=== PATIENT | male | born 1980 | race Caucasian/White ===

== ENCOUNTER 2018-06-21 16:17 | Emergency (ER) | payer MEDICAID ==
[2018-06-21] MEDS: oxyCODONE 5 MG TABLET PO STA (18:08)
--- NOTE | 2018-06-21 18:19 | ED Physician Documentation ---
PD HPI Fall - Stated complaint Stated Complaint: RT SHOULD/PX;FELL OFF LADDER - Chief complaint Chief Complaint: Trauma Ext - History obtained from History obtained from: Patient - History of Present Illness Mechanism of injury: Other (Fall from ladder.) Fall distance: 5 to 10ft Where injury occurred: Home Timing - onset: How many days ago (2) Injury(ies) location: Neck, Right Upper Extremity Associated symptoms: Neck pain. No: LOC Worsens with: Movement, Palpation Similar symptoms before: Has not had sx before - Additional information Additional information: The patient is a 37-year-old male who fell off a ladder, about 10 feet, while hanging [employer]ia lights 2 days ago. He impacted his right shoulder and upper back. He presents now because of pain at his right elbow, forearm, neck, and shoulder. He denies loss of consciousness, headache, shortness of breath, nausea, numbness or weakness. Review of Systems Constitutional: denies: Fever Ears: denies: Tinnitus/ringing Nose: denies: Congestion Throat: denies: Sore throat Cardiac: denies: Chest pain / pressure Respiratory: denies: Dyspnea, Cough GI: denies: Abdominal Pain, Nausea, Vomiting : denies: Dysuria Skin: denies: Abrasion (s), Laceration (s) Musculoskeletal: reports: Neck pain, Extremity pain (Right shoulder, elbow, and forearm.) Neurologic: denies: Focal weakness, Numbness, Headache, LOC PD PAST MEDICAL HISTORY - Past Medical History Past Medical History: No Cardiovascular: None Respiratory: None Neuro: None Endocrine/Autoimmune: None GI: None : None HEENT: None Psych: None Musculoskeletal: None Derm: None - Past Surgical History Past Surgical History: No - Present Medications Home Medications: Ambulatory Orders Medication Instructions Recorded Confirmed Cetirizine [ZyrTEC] 06/21/18 Fluticasone [Flonase] 06/21/18 06/21/18 Gabapentin 06/21/18 HYDROcod/ACETAM 5/325 [[place] 5/325] 06/21/18 Hydrocodone/Acetaminophen 1 - 2 each PO Q6H PRN #20 tablet 06/21/18 [Hydrocodon-Acetaminophen 5-325] Ibuprofen [Motrin] 06/21/18 Methocarbamol 06/21/18 Prazosin [Minipress] 06/21/18 raNITIdine [Zantac] 06/21/18 - Allergies Allergies/Adverse Reactions: Allergies Allergy/AdvReac Type Severity Reaction Status Date / Time amoxicillin Allergy Anaphylaxis Verified 06/21/18 16:35 amitriptyline AdvReac Hallucinati Verified 06/21/18 16:35 ons diphenhydramine AdvReac Hallucinati Verified 06/21/18 16:35 [From Benadryl] ons haloperidol [From Haldol] AdvReac Hallucinati Verified 06/21/18 16:35 ons - Social History Does the pt smoke?: Yes Smoking Status: Current every day smoker Does the pt drink ETOH?: No Does the pt have substance abuse?: No - Immunizations Immunizations are current?: Yes - POLST Patient has POLST: No PD ED PE NORMAL - Vitals Vital signs reviewed: Yes (Borderline systolic hypertension initially.) - General General: Alert and oriented X 3, Well developed/nourished - HEENT HEENT: Atraumatic, EOMI - Neck Neck: Other (There is tenderness to palpation along the mid cervical spine and right paracervical musculature. No tenderness along the left paracervical musculature.) - Cardiac Cardiac: RRR, No murmur - Respiratory Respiratory: No respiratory distress, Clear bilaterally, Other (No chest wall tenderness to palpation.) - Abdomen Abdomen: Soft, Non tender - Back Back: No CVA TTP, No spinal TTP - Derm Derm: No rash - Extremities Extremities: Other (There is swelling of the right proximal forearm and elbow, with tenderness to palpation over the lateral and extensor aspect. He is able to supinate and pronate the forearm, and flex and extend the elbow, but it ex acerbates his discomfort. There is mild tenderness to palpation over the anterior aspect of the right shoulder. Distal neurovascular is intact.) - Neuro Neuro: Alert and oriented X 3, No motor deficit, No sensory deficit Results - Vitals Vitals: Oxygen O2 Source Room air - Rads (name of study) Right shoulder Radiology: Prelim report reviewed, EMP read contemporaneously, See rad report (No fracture or dislocation.) C-spine Radiology: Prelim report reviewed, EMP read contemporaneously, See rad report (No evidence of fracture or subluxation of the cervical spine. Question nondisplaced mandible fracture versus artifact on lateral view. Correlate with symptoms of mandible pain just above angle of mandible.) Right elbow Radiology: Prelim report reviewed, EMP read contemporaneously, See rad report (No fracture or subluxation.) Right forearm Radiology: Prelim report reviewed, EMP read contemporaneously, See rad report (No fracture.) Procedures - Splint (location) right elbow Splint applied by: Physician Type of splint: Fiberglass, Sugar tong Other: Patient tolerated well, No complications, Neurovascular intact, Sling provided PD MEDICAL DECISION MAKING - ED course Complexity details: reviewed results, re-evaluated patient, considered differential, d/w patient, d/w family ED course: The patient's presentation is significant for fall of about 10 feet off a ladder, with contusions to his right upper extremity and cervical strain. X- rays of his cervical spine, right shoulder, right elbow, and right forearm revealed no fractures or dislocations. However the degree of discomfort in the patient's right elbow is suspicious for an occult radial head fracture. Treatment in the emergency department included application of a sugar tong splint and an arm sling, and administration of oxycodone 1 tablet orally. He is being discharged with prescription for Vicodin, 20 tablets. I discussed with him and his the expected course of injury, symptomatic treatment and outpatient follow-up, as well as potentially worrisome signs or symptoms that should prompt reevaluation in the emergency department. Departure - Departure Disposition: 01 Home, Self Care Clinical Impression: Fall from ladder Qualifiers: Encounter type: initial encounter Qualified Code(s): W11.XXXA - Fall on and fr om ladder, initial encounter Contusion of right elbow and forearm Qualifiers: Encounter type: initial encounter Qualified Code(s): S50.11XA - Contusion of right forearm, initial encounter Cervical sprain Qualifiers: Encounter type: initial encounter Qualified Code(s): S13.9XXA - Sprain of joints and ligaments of unspecified parts of neck, initial encounter Condition: Stable Instructions: ED Contusion Elbow, ED Sprain Strain Neck, ED Splint Care Fiberglass Follow-Up: [facility] [Provider Group] Prescriptions: Hydrocodone/Acetaminophen [Hydrocodon-Acetaminophen 5-325] 1 - 2 each PO Q6H PRN #20 tablet PRN Reason: pain Comments: Keep your right arm elevated as much of the time as possible. Keep the splint clean and dry. You can use ice pack, even over the splint, to help decrease swelling. You can use ibuprofen, up to 800 mg 3 times daily for its anti-inflammatory effect. You can use Vicodin as prescribed if needed for pain. Follow-up with primary physician within 1-2 weeks. Call to schedule an appointment. Return to the emergency department if you develop significantly increasing pain or swelling, or otherwise worsening symptoms. Discharge Date/Time: 06/21/18 20:07
--- NOTE | 2018-06-21 19:37 | XRAY Report ---
Reason: 10 foot fall off ladder; neck pain. Procedure Date: 06/21/2018 Accession Number: [id number] / [id number] Procedure: XR - Cervical Spine 2 View CPT Code: FULL RESULT: EXAM: CERVICAL SPINE RADIOGRAPHY EXAM DATE: 06/21/2018 06:47 PM. CLINICAL HISTORY: 10 foot fall off ladder; neck pain. COMPARISONS: None. TECHNIQUE: 3 views. FINDINGS: Alignment: No scoliosis or subluxation. Bones: Spine adequately visualized to upper T1. Cervical vertebral bodies appear normal in height and alignment. No fracture visualized. On lateral image, there is a linear lucency seen across the mandible which may represent mandible injury versus other overlapping artifact. Disks: There is mild disk height loss at C4-C5 and C6-C7. Facets: Satisfactory alignment. Soft Tissues: No apical pneumothorax. IMPRESSION: 1. No evidence of fracture or subluxation of the cervical spine. 2. Question nondisplaced mandible fracture versus artifact on lateral view. Correlate with symptoms of mandible pain just above angle of mandible. RADIA
--- NOTE | 2018-06-21 19:39 | XRAY Report ---
Reason: right shoulder injury; fell off ladder. Procedure Date: 06/21/2018 Accession Number: [id number] / [id number] Procedure: XR - Shoulder 3 View RT CPT Code: FULL RESULT: EXAM: RIGHT SHOULDER RADIOGRAPHY EXAM DATE: 06/21/2018 06:47 PM. CLINICAL HISTORY: Right shoulder injury; fell off ladder. COMPARISON: None. TECHNIQUE: 3 views. FINDINGS: Bones: Normal. No fracture or bone lesion. Joints: The glenohumeral and acromioclavicular joints are normal. Soft tissues: The visualized hemithorax is unremarkable. No soft tissue swelling. IMPRESSION: No fracture or subluxation. RADIA
--- NOTE | 2018-06-21 19:40 | XRAY Report ---
Reason: 10 foot fall off ladder. Pain, swelling forearm. Procedure Date: 06/21/2018 Accession Number: [id number] / [id number] Procedure: XR - Forearm RT CPT Code: FULL RESULT: EXAM: RIGHT FOREARM RADIOGRAPHY EXAM DATE: 06/21/2018 06:47 PM. CLINICAL HISTORY: 10 foot fall off ladder. Pain, swelling forearm. COMPARISON: None. TECHNIQUE: 2 views. FINDINGS: Bones: Normal. No fractures or bone lesions. Joints: Normal. No effusions or subluxations in the visualized wrist or elbow joints. Soft Tissues: Normal. No soft tissue swelling. IMPRESSION: No fracture. RADIA
--- NOTE | 2018-06-21 19:42 | XRAY Report ---
Reason: 10 foot fall off ladder; Pain, swelling rt. elbow. Procedure Date: 06/21/2018 Accession Number: [id number] / [id number] Procedure: XR - Elbow 3 View RT CPT Code: FULL RESULT: EXAM: RIGHT ELBOW RADIOGRAPHY EXAM DATE: 06/21/2018 06:47 PM. CLINICAL HISTORY: 10 foot fall off ladder; Pain, swelling rt. elbow. COMPARISON: None. TECHNIQUE: 3 views. FINDINGS: Bones: Normal. No fractures or bone lesions. Joints: Normal. No effusion. No subluxation. Soft Tissues: Normal. No soft tissue swelling. IMPRESSION: No fracture or subluxation. RADIA
[2018-06-21 20:02] VITALS: BP 152/88
== END 2018-06-21 20:07 | disposition home or self-care (01) ==
LOC: ED 16:17
DX: S50.11XA Contusion of right forearm, initial encounter (principal); S16.1XXA Strain of muscle, fascia and tendon at neck level, initial encounter; W11.XXXA Fall on and from ladder, initial encounter; Y93.89 Activity, other specified; Y92.009 Unspecified place in unspecified non-institutional (private) residence as the place of occurrence of the external cause; F17.200 Nicotine dependence, unspecified, uncomplicated
CPT/HCPCS: 29105; 72040; 73030; 73080; 73090; 99283; A9270

== ENCOUNTER 2018-07-25 11:57 | Emergency (ER) | payer MEDICAID ==
--- NOTE | 2018-07-25 12:58 | ED Physician Documentation ---
PD HPI UPPER EXT INJURY - Stated complaint Stated Complaint: R ELBOW PX - Chief complaint Chief Complaint: Ext Problem - History obtained from History obtained from: Patient - History of Present Illness Location: Right, Elbow, Wrist, Hand Type of injury: Twist (had had fall from ladder with injury right shoulder and elbow. Had sling/then cast of elbow for concern of fracture (seems maybe occult fracture concern as prior xrays were negative). Has had cast off elbow for a week, and he noted some onset of pain with twisting and use of it. He put an arturo wrap on elbow last night, and today is concerned that he awoke with pain and swelling from elbow down to fingers, and the whole of it feels painful and pressured. Normal sensation at fingertips.). No: Fall Timing - onset: Yesterday Worsened by: Moving, Palpating Associated symptoms: Swelling (from elbow to tips of fingers). No: Weakness, Numbness Contributing factors: Prior ortho surgery Similar symptoms before: Has not had sx before (had still been having pain in elbow post cast removal, but not had this swelling of arm previously.) Review of Systems Constitutional: denies: Fever, Chills Skin: denies: Abrasion (s), Laceration (s) Musculoskeletal: reports: Extremity swelling PD PAST MEDICAL HISTORY - Past Medical History Past Medical History: Yes Cardiovascular: None Respiratory: None Neuro: None Endocrine/Autoimmune: None GI: None : None HEENT: None Psych: None Musculoskeletal: None Derm: None - Past Surgical History Past Surgical History: No - Present Medications Home Medications: Ambulatory Orders Medication Instructions Recorded Confirmed Cetirizine [ZyrTEC] 06/21/18 Fluticasone [Flonase] 06/21/18 06/21/18 Gabapentin 06/21/18 HYDROcod/ACETAM 5/325 [[place] 5/325] 06/21/18 Hydrocodone/Acetaminophen 1 - 2 each PO Q6H PRN #20 tablet 06/21/18 [Hydrocodon-Acetaminophen 5-325] Ibuprofen [Motrin] 06/21/18 Methocarbamol 06/21/18 Prazosin [Minipress] 06/21/18 raNITIdine [Zantac] 06/21/18 Naproxen 500 mg PO BID #20 tablet 07/25/18 Oxycodone HCl/Acetaminophen 1 - 2 each PO Q6H PRN #20 tablet 07/25/18 [Percocet 5-325 mg Tablet] - Allergies Allergies/Adverse Reactions: Allergies Allergy/AdvReac Type Severity Reaction Status Date / Time amoxicillin Allergy Anaphylaxis Verified 07/25/18 12:06 amitriptyline AdvReac Hallucinati Verified 07/25/18 12:06 ons diphenhydramine AdvReac Hallucinati Verified 07/25/18 12:06 [From Benadryl] ons haloperidol [From Haldol] AdvReac Hallucinati Verified 07/25/18 12:06 ons - Social History Does the pt smoke?: Yes Smoking Status: Current every day smoker Does the pt drink ETOH?: No Does the pt have substance abuse?: No - Immunizations Immunizations are current?: Yes - POLST Patient has POLST: No PD ED PE NORMAL - Vitals Vital signs reviewed: Yes - General General: Alert and oriented X 3, Well developed/nourished - Cardiac Cardiac: RRR, No murmur - Respiratory Respiratory: Clear bilaterally - Derm Derm: Normal color, Warm and dry - Extremities Extremities: Other (the right forearm from elbow down with edema and tenderness. Has pulses, color and cap refill in fingers/wrist. FInger movement present. Hurts for wrist and elbow movement. The edema starts and demarcates at the skin wrinkles present from the arturo wrap he put on last night. ) - Neuro Neuro: No motor deficit, No sensory deficit Results - Vitals Vitals: Vital Signs - 24 hr 07/25/18 07/25/18 12:03 13:58 Temperature 36.4 C L 36.5 C Heart Rate 50 L 53 L Respiratory 14 16 Rate Blood Pressure 156/87 H 133/84 H O2 Saturation 99 99 Oxygen O2 Source Room air - Rads (name of study) elbow,wrist, hand xrays Radiology: Prelim report reviewed (no fractures seen), See rad report PD MEDICAL DECISION MAKING - ED course Complexity details: reviewed old records (not obvious fracture on prior films. Seems concern for occult radial fx. ), reviewed results, considered differential, d/w patient Departure - Departure Disposition: Home, Self Care Clinical Impression: Edema of right forearm Elbow strain Qualifiers: Encounter type: initial encounter Laterality: right Qualified Code(s): S46.911A - Strain of unspecified muscle, fascia and tendon at shoulder and upper arm level, right arm, initial encounter Condition: Stable Record reviewed to determine appropriate education?: Yes Instructions: ED Sprain Elbow Prescriptions: Naproxen 500 mg PO BID #20 tablet Oxycodone HCl/Acetaminophen [Percocet 5-325 mg Tablet] 1 - 2 each PO Q6H PRN #20 tablet PRN Reason: pain Comments: Use a sling for the arm to support the forearm and elbow. I think the swelling in your arm was related to the Arturo wrap he had on the elbow and caused mild lymphatic tourniquet. The swelling should go down in the next day or so. No wraps around the elbow and if you do have it loose. Use a sling to support instead. Minimal use of the right arm for 2 or 3 days. You likely kind of stretched and strained the elbow given that it would have gotten stiff from the splint on there previously. Use of anti-inflammatories twice daily for the next week or so. Add pain medicine if needed. Recheck if not improved over the next few days. Forms: Activity restrictions Discharge Date/Time: 07/25/18 13:59
--- NOTE | 2018-07-25 12:59 | XRAY Report ---
Reason: pain swelling Procedure Date: 07/25/2018 Accession Number: [id number] / [id number] Procedure: XR - Elbow 3 View RT CPT Code: FULL RESULT: EXAM: RIGHT ELBOW RADIOGRAPHY EXAM DATE: 07/25/2018 12:27 PM. CLINICAL HISTORY: Pain swelling. COMPARISON: Elbow 3 view right 06/21/2018 6:47 PM. TECHNIQUE: 3 views. FINDINGS: Suboptimal position of the lateral view. This limitation precludes definite evaluation for dislocation of the radial head. Bones: Normal. No fractures or bone lesions. Joints: Normal. No effusion. No subluxation visualized with the aforementioned limitation. Soft Tissues: Normal. No soft tissue swelling. IMPRESSION: No fracture or dislocation is identified. If there is concern for subluxation of the radial head, repeat lateral radiograph is recommended. RADIA
--- NOTE | 2018-07-25 12:59 | XRAY Report ---
Reason: pain./swelling Procedure Date: 07/25/2018 Accession Number: [id number] / [id number] Procedure: XR - Hand 3 View RT CPT Code: FULL RESULT: EXAM: RIGHT HAND RADIOGRAPHY EXAM DATE: 07/25/2018 12:26 PM. CLINICAL HISTORY: Pain and swelling. COMPARISON: ELBOW 3 VIEW RT 06/21/2018 6:47 PM. TECHNIQUE: 3 views. FINDINGS: Bones: Normal. No fractures or bone lesions. Joints: Normal. No subluxations. Soft Tissues: Normal. No soft tissue swelling. IMPRESSION: Normal hand radiography. RADIA
[2018-07-25] MEDS ORDERED: oxyCODONE 5 MG TABLET PO STA (13:17)
[2018-07-25] MEDS ORDERED: NAPROXEN 250 MG TABLET PO STA (13:17)
[2018-07-25 13:59] VITALS: BP 133/84
== END 2018-07-25 13:59 | disposition home or self-care (01) ==
LOC: ED 11:57
DX: R60.0 Localized edema (principal); S46.911A Strain of unspecified muscle, fascia and tendon at shoulder and upper arm level, right arm, initial encounter; W11.XXXA Fall on and from ladder, initial encounter; X50.9XXA Other and unspecified overexertion or strenuous movements or postures, initial encounter
CPT/HCPCS: 73080; 73130; 99283; A9270

== ENCOUNTER 2019-01-15 19:40 | Emergency (ER) | payer MEDICAID ==
[2019-01-15] MEDS ORDERED: predniSONE 20 MG TABLET PO STA (20:26)
[2019-01-15] MEDS ORDERED: KETOROLAC 60 MG/2 ML VIAL IM STA (20:35)
--- NOTE | 2019-01-15 20:37 | ED Physician Documentation ---
PD HPI BACK INJURY - Stated complaint Stated Complaint: LOWER BACK PX AND LEG PX - History obtained from History obtained from: Patient - History of Present Illness Location: Right, Left, Lower Type of injury: Other (yesterday) Where injury occurred: Home Timing - onset: Yesterday Timing - duration: Days (1) Timing - details: Gradual onset Pain level max: 8 Pain level now: 8 Quality: Pain, Spasm, Similar to prior episodes Improved by: Rest Worsened by: Moving, Palpating Associated symptoms: No: Fever, Weakness, Numbness, Incontinent of urine, Unable to urinate, Hematuria, Incontinent of stool Contributing factors: No: Anticoagulated, Prior back surgery, Prosthetic joint, Other injury Similar symptoms before: Diagnosis (sciatica) - Additional information Additional information: took ibuprofen and robaxin without relief. Has had back pain in the past. No loss of bowel or bladder control. Review of Systems Constitutional: denies: Fever, Chills GI: denies: Vomiting, Diarrhea Skin: denies: Rash Musculoskeletal: denies: Neck pain, Back pain Neurologic: denies: Headache PD PAST MEDICAL HISTORY - Past Medical History Past Medical History: Yes Cardiovascular: None Respiratory: None Neuro: None Endocrine/Autoimmune: None GI: None : None HEENT: None Psych: None Musculoskeletal: Chronic back pain Derm: None - Past Surgical History Past Surgical History: No - Present Medications Home Medications: Ambulatory Orders Medication Instructions Recorded Confirmed Cetirizine [ZyrTEC] 06/21/18 Fluticasone [Flonase] 06/21/18 06/21/18 Gabapentin 06/21/18 HYDROcod/ACETAM 5/325 [[place] 5/325] 06/21/18 Hydrocodone/Acetaminophen 1 - 2 each PO Q6H PRN #20 tablet 06/21/18 [Hydrocodon-Acetaminophen 5-325] Ibuprofen [Motrin] 06/21/18 Methocarbamol 06/21/18 Prazosin [Minipress] 06/21/18 raNITIdine [Zantac] 06/21/18 Naproxen 500 mg PO BID #20 tablet 07/25/18 Oxycodone HCl/Acetaminophen 1 - 2 each PO Q6H PRN #20 tablet 07/25/18 [Percocet 5-325 mg Tablet] Meloxicam [Mobic] 15 mg PO DAILY PRN #20 tablet 01/15/19 Metaxalone [Skelaxin] 800 mg PO Q8H PRN #14 tablet 01/15/19 predniSONE [Deltasone] 10 mg PO [id number] #42 tab 01/15/19 - Allergies Allergies/Adverse Reactions: Allergies Allergy/AdvReac Type Severity Reaction Status Date / Time amoxicillin Allergy Anaphylaxis Verified 01/15/19 19:51 amitriptyline AdvReac Hallucinati Verified 01/15/19 19:51 ons diphenhydramine AdvReac Hallucinati Verified 01/15/19 19:51 [From Benadryl] ons haloperidol [From Haldol] AdvReac Hallucinati Verified 01/15/19 19:51 ons - Social History Does the pt smoke?: Yes Smoking Status: Current some day smoker Does the pt drink ETOH?: No Does the pt have substance abuse?: No Substance Use and Type: Marijuana - Immunizations Immunizations are current?: Yes - POLST Patient has POLST: No PD ED PE NORMAL - Vitals Vital signs reviewed: Yes - General General: Alert and oriented X 3, No acute distress, Well developed/nourished - HEENT HEENT: PERRL, Moist mucous membranes - Neck Neck: Supple, no meningeal sign - Cardiac Cardiac: RRR, Strong equal pulses - Respiratory Respiratory: No respiratory distress, Clear bilaterally - Abdomen Abdomen: Soft, Non tender, Non distended - Back Back: Other (Tender to palpation paraspinal bilateral low lumbar. Also has midline tenderness over L3-L4.) - Derm Derm: Warm and dry - Extremities Extremities: No calf tenderness / cord - Neuro Neuro: Alert and oriented X 3, No motor deficit, No sensory deficit, Other (Normal bilateral lower extremity patellar and ankle jerk reflexes. Normal great toe extension bilaterally. no saddle anesthesia) - Psych Psych: Normal mood, Normal affect Results - Vitals Vitals: Vital Signs - 24 hr 01/15/19 01/15/19 19:43 21:37 Temperature 36 C L 36.4 C L Heart Rate 73 49 L Respiratory 16 16 Rate Blood Pressure 162/87 H 140/78 H O2 Saturation 99 98 Oxygen O2 Source Room air - Rads (name of study) L spine xray Radiology: Prelim report reviewed, EMP read contemporaneously, See rad report (No acute abnormality) PD MEDICAL DECISION MAKING - ED course Complexity details: reviewed results, re-evaluated patient, considered differential, d/w patient ED course: 38-year-old male presents to the emergency department what appears to be sciatica. Given prednisone. His [employer] was reviewed and found that he is on hydrocodone 04/03/2025 at home. Will utilize this for pain. We will change his Robaxin to Skelaxin and see if this works better for him. Ambulating well. No evidence of cauda equina, epidural abscess, fracture. Patient counseled regarding signs and symptoms for which I believe and urgent re-evaluation would be necessary. Patient with good understanding of and agreement to plan and is comfortable going home at this time This document was made in part using voice recognition software. While efforts are made to proofread this document, sound alike and grammatical errors may occur. Departure - Departure Disposition: Home, Self Care Clinical Impression: Sciatica Qualifiers: Laterality: bilateral Qualified Code(s): M54.31 - Sciatica, right side Condition: Good Instructions: ED Sciatica Follow-Up: DESIREE ROSALES [Primary Care Provider] - Within 1 week Prescriptions: Meloxicam [Mobic] 15 mg PO DAILY PRN #20 tablet PRN Reason: pain Metaxalone [Skelaxin] 800 mg PO Q8H PRN #14 tablet PRN Reason: back pain predniSONE [Deltasone] 10 mg PO [id number] #42 tab Comments: Continue your hydrocodone at home. We will change your Robaxin and see if this helps you. Also placed on prednisone taper. Follow-up with your doctor for further care. Your x-rays are normal tonight. Do not drive or operate heavy machinery while taking the metaxalone Discharge Date/Time: 01/15/19 21:38
--- NOTE | 2019-01-15 21:03 | XRAY Report ---
Reason: fall, back pain Procedure Date: 01/15/2019 Accession Number: [id number] / [id number] Procedure: XR - Lumbar Spine 2 View CPT Code: FULL RESULT: EXAM: LUMBOSACRAL SPINE RADIOGRAPHY EXAM DATE: 01/15/2019 08:44 PM. CLINICAL HISTORY: Fall, back pain. COMPARISONS: None. TECHNIQUE: 2 views. FINDINGS: Alignment: Within normal limits. No spondylolisthesis or scoliosis. Bones: Five [id number] lumbar vertebral bodies are present. No acute fractures or suspicious bone lesions. Disks: Disk heights are maintained. Facets: Unremarkable Sacroiliac Joints: Unremarkable. Soft Tissues: The visualized bowel gas pattern is unremarkable. IMPRESSION: No radiographic evidence for acute disease. RADIA
[2019-01-15 21:39] VITALS: BP 140/78
== END 2019-01-15 21:38 | disposition home or self-care (01) ==
LOC: ED 19:40
DX: M54.31 Sciatica, right side (principal); F17.200 Nicotine dependence, unspecified, uncomplicated
CPT/HCPCS: 72100; 96372; 99283; 99284; J7512

== ENCOUNTER 2019-09-01 07:47 | Outpatient (CLI) | payer MEDICAID | END 2019-09-01 07:48 | disposition critical access hospital (66) | LOC: EMS 07:47 | PROVIDERS: ATTEND Surgery | DX: R10.9 Unspecified abdominal pain (principal) | CPT/HCPCS: A0425; A0429; A0999 ==

== ENCOUNTER 2019-09-08 18:18 | Emergency (ER) | payer MEDICAID ==
[2019-09-08] MEDS ORDERED: LIDOCAINE 1%-EPI 1:100000 20 ML MDV SUBQ STA (18:45)
--- NOTE | 2019-09-08 18:45 | ED Physician Documentation ---
History of Present Illness - Stated complaint Stated Complaint: MALE - Chief complaint Chief Complaint: General - History obtained from History obtained from: Patient (Recent laparoscopic appendectomy with JOSHUA drain still in place. He has been having trouble with constipation and today developed 2 large hemorrhoids that are quite painful while trying to have a bowel movement.) Review of Systems Constitutional: reports: Reviewed and negative Throat: reports: Reviewed and negative Cardiac: reports: Reviewed and negative PD PAST MEDICAL HISTORY - Past Medical History Cardiovascular: None Respiratory: None Neuro: None Endocrine/Autoimmune: None GI: None : None HEENT: None Psych: None Musculoskeletal: Chronic back pain Derm: None - Past Surgical History Past Surgical History: No - Present Medications Home Medications: Ambulatory Orders Medication Instructions Recorded Confirmed Gabapentin 1,200 mg ORAL TID 06/21/18 09/02/19 Ibuprofen [Motrin] 600 mg ORAL BID 06/21/18 09/02/19 Prazosin [Minipress] 2 mg ORAL DAILY 06/21/18 09/02/19 raNITIdine [Zantac] 150 mg PO DAILY PRN 06/21/18 09/02/19 lamoTRIgine [LaMICtal] 200 mg ORAL DAILY 09/01/19 09/01/19 Acyclovir 400 mg PO Q8H 09/02/19 09/02/19 Cetirizine [ZyrTEC] 10 mg PO DAILY 09/02/19 09/02/19 Fluticasone [Flonase] 1 spray MUSHTAQ DAILY PRN 09/02/19 09/02/19 HYDROcodone/ACET 10/325 [[place] 10 1 tab PO DAILY PRN 09/02/19 09/02/19 mg/325 mg] Prazosin HCl 4 mg PO QPM 09/02/19 09/02/19 methocarbamoL [Methocarbamol] 1,500 mg PO BID PRN 09/02/19 09/02/19 Levofloxacin [Levaquin] 500 mg PO DAILY #7 tablet 09/06/19 oxyCODONE [Roxicodone] 5 mg PO Q4H PRN #30 tablet 09/06/19 - Allergies Allergies/Adverse Reactions: Allergies Allergy/AdvReac Type Severity Reaction Status Date / Time amoxicillin Allergy Anaphylaxis Verified 09/08/19 18:21 amitriptyline AdvReac Hallucinati Verified 09/08/19 18:21 ons diphenhydramine AdvReac Hallucinati Verified 09/08/19 18:21 [From Benadryl] ons haloperidol [From Haldol] AdvReac Hallucinati Verified 09/08/19 18:21 ons - Social History Does the pt smoke?: Yes Smoking Status: Current some day smoker Does the pt drink ETOH?: No Does the pt have substance abuse?: No - Immunizations Immunizations are current?: Yes - POLST Patient has POLST: No POLST Status: Full Code PD ED PE NORMAL - Vitals Vital signs reviewed: Yes - General General: Alert and oriented X 3, No acute distress - Abdomen Abdomen: Soft, Non tender - Male Male : Other (2 thrombosed hemorrhoids that are tender) - Back Back: No CVA TTP, No spinal TTP Results - Vitals Vitals: Vital Signs - 24 hr 09/08/19 18:21 Temperature 37.3 C Heart Rate 84 Respiratory 18 Rate Blood Pressure 142/85 H O2 Saturation 97 Oxygen O2 Source Room air Procedures - General procedure General procedure: Large thrombosed hemorrhoids on either side: After verbal informed consent was obtained to the ear was prepped with iodine and the base of both hemorrhoids was infiltrated with 1% lidocaine with epinephrine with excellent anesthesia. Small cruciate incisions were made in both and clots were removed with resolution of his symptoms. Departure - Departure Disposition: 01 Home, Self Care Clinical Impression: Hemorrhoids Qualifiers: Hemorrhoid type: perianal venous thrombosis Qualified Code(s): K64.5 - Perianal venous thrombosis Condition: Good Record reviewed to determine appropriate education?: Yes Instructions: ED Hemorrhoids, Leana Srivastava Comments: Follow-up with the surgeon tomorrow as scheduled, have her look at the hemorrhoids as well. Let her know that we incised and drained them both. Return for new or worsening symptoms.
[2019-09-08] MEDS ORDERED: MAGNESIUM CITRATE 296 ML BOTTLE PO STA (19:04)
[2019-09-08 19:15] VITALS: BP 120/74
== END 2019-09-08 19:16 | disposition home or self-care (01) ==
LOC: ED 18:18
DX: K64.5 Perianal venous thrombosis (principal); K59.00 Constipation, unspecified; Z98.890 Other specified postprocedural states; Z90.49 Acquired absence of other specified parts of digestive tract; F17.200 Nicotine dependence, unspecified, uncomplicated
CPT/HCPCS: 46083; 99283; A9270

== ENCOUNTER 2020-03-06 19:08 | Emergency (ER) | payer MEDICAID ==
[2020-03-06] MEDS ORDERED: oxyCODONE 5 MG TABLET PO STA (19:32)
--- NOTE | 2020-03-06 19:37 | ED Physician Documentation ---
History of Present Illness - Stated complaint Stated Complaint: FALL/RIB PX - Chief complaint Chief Complaint: Trauma Ch/Bk - History obtained from History obtained from: Patient, Family - History of Present Illness Timing: How many hours ago (6) Pain level max: 10 Pain level now: 10 - Additonal information Additional information: Patient states he was standing on [place] of hay today when he fell. Initially had mild right-sided pain, this is gradually worsened throughout the day. Not relieved with his hydrocodone at home. No difficulty breathing. No cough. No fever. No congestion. Review of Systems Constitutional: denies: Fever, Chills GI: denies: Nausea, Vomiting, Diarrhea Skin: denies: Rash Musculoskeletal: denies: Neck pain, Back pain Neurologic: denies: Focal weakness, Numbness, Confused, Headache, Head injury, LOC PD PAST MEDICAL HISTORY - Past Medical History Past Medical History: Yes Cardiovascular: None Respiratory: None Neuro: None Endocrine/Autoimmune: None GI: None : None HEENT: None Psych: None Musculoskeletal: Chronic back pain Derm: None - Past Surgical History Past Surgical History: No General: Cholecystectomy, Appendectomy - Present Medications Home Medications: Ambulatory Orders Medication Instructions Recorded Confirmed Gabapentin 1,200 mg ORAL TID 06/21/18 09/02/19 Ibuprofen [Motrin] 600 mg ORAL BID 06/21/18 09/02/19 Prazosin [Minipress] 2 mg ORAL DAILY 06/21/18 09/02/19 raNITIdine [Zantac] 150 mg PO DAILY PRN 06/21/18 09/02/19 lamoTRIgine [LaMICtal] 200 mg ORAL DAILY 09/01/19 09/01/19 Acyclovir 400 mg PO Q8H 09/02/19 09/02/19 Cetirizine [ZyrTEC] 10 mg PO DAILY 09/02/19 09/02/19 Fluticasone [Flonase] 1 spray MUSHTAQ DAILY PRN 09/02/19 09/02/19 HYDROcodone/ACET 10/325 [[place] 10 1 tab PO DAILY PRN 09/02/19 09/02/19 mg/325 mg] Prazosin HCl 4 mg PO QPM 09/02/19 09/02/19 methocarbamoL [Methocarbamol] 1,500 mg PO BID PRN 09/02/19 09/02/19 Levofloxacin [Levaquin] 500 mg PO DAILY #7 tablet 09/06/19 oxyCODONE [Roxicodone] 5 mg PO Q4H PRN #30 tablet 09/06/19 predniSONE [Prednisone] 40 mg PO DAILY #10 tablet 01/27/20 oxyCODONE [Roxicodone] 5 mg PO Q6H PRN #5 tablet 03/03/20 Oxycodone HCl 5 - 10 mg PO Q6H PRN #10 tablet 03/06/20 - Allergies Allergies/Adverse Reactions: Allergies Allergy/AdvReac Type Severity Reaction Status Date / Time amoxicillin Allergy Anaphylaxis Verified 03/06/20 19:21 amitriptyline AdvReac Hallucinati Verified 03/06/20 19:21 ons diphenhydramine AdvReac Hallucinati Verified 03/06/20 19:21 [From Benadryl] ons haloperidol [From Haldol] AdvReac Hallucinati Verified 03/06/20 19:21 ons - Social History Does the pt smoke?: No Smoking Status: Never smoker Does the pt drink ETOH?: No Does the pt have substance abuse?: No - Immunizations Immunizations are current?: Yes - POLST Patient has POLST: No POLST Status: Full Code PD ED PE NORMAL - Vitals Vital signs reviewed: Yes - General General: Alert and oriented X 3, No acute distress, Well developed/nourished - HEENT HEENT: Atraumatic, PERRL, Ears normal, Moist mucous membranes - Neck Neck: Supple, no meningeal sign, No bony TTP - Cardiac Cardiac: RRR, No murmur - Respiratory Respiratory: No respiratory distress, Clear bilaterally, Other (Tender to Palpation over the right posterior ribs, approximately 7 through 10. No crepitus. No ecchymosis.) - Back Back: No spinal TTP - Derm Derm: Warm and dry - Extremities Extremities: No tenderness to palpate - Neuro Neuro: Alert and oriented X 3 - Psych Psych: Normal mood, Normal affect Results - Vitals Vitals: Vital Signs - 24 hr 03/06/20 03/06/20 19:19 20:38 Temperature 36.8 C Heart Rate 70 58 L Respiratory 18 18 Rate Blood Pressure 126/79 126/73 O2 Saturation 98 100 Oxygen O2 Source Room air - Rads (name of study) R rib xray Radiology: Prelim report reviewed, EMP read contemporaneously, See rad report (no visible xray) PD MEDICAL DECISION MAKING - ED course Complexity details: reviewed results, re-evaluated patient, considered differential, d/w patient ED course: patient is a 39-year-old male who presents to the emergency department after a fall today. Landed on the right ribs. No acute findings on x-ray. No pneumothorax or hemothorax. Patient counseled regarding signs and symptoms for which I believe and urgent re-evaluation would be necessary. Patient with good understanding of and agreement to plan and is comfortable going home at this time This document was made in part using voice recognition software. While efforts are made to proofread this document, sound alike and grammatical errors may occur. Departure - Departure Disposition: 01 Home, Self Care Clinical Impression: Contusion of rib on right side Qualifiers: Encounter type: initial encounter Qualified Code(s): S20.211A - Contusion of right front wall of thorax, initial encounter Condition: Good Instructions: ED Contusion Rib Follow-Up: your,doctor in 1 week [Other] Prescriptions: Oxycodone HCl 5 - 10 mg PO Q6H PRN #10 tablet PRN Reason: pain Comments: We do not see any fractures on your x-ray currently. Follow-up with your doctor for further care. Return if you worsen. Discharge Date/Time: 03/06/20 20:44
--- NOTE | 2020-03-06 20:17 | XRAY Report ---
PROCEDURE: Ribs w/PA Chest RT INDICATIONS: fall, R rib pain TECHNIQUE: 4 views of the right ribs were acquired, along with a single view chest. COMPARISON: None FINDINGS: Surgical changes and devices: None. Bones and chest wall: No fractures or dislocations. No suspicious bony lesions. Overlying soft tis sues appear unremarkable. Lungs and pleura: No pleural effusions or pneumothorax. Lungs appear clear. Mediastinum: Mediastinal contours appear normal. Heart size is normal. IMPRESSION: No trauma found. Please note that delayed plain films may detect a nondisplaced rib fracture that is not initially visible prior to callus formation. Also, nuclear medicine bone scan studies can more ac curately detected rib fractures Reviewed by: Misbah Marquis MD on 03/06/2020 8:16 PM PDT Approved by: Misbah Marquis MD on 03/06/2020 8:16 PM PDT Station ID: [id number]
[2020-03-06 20:39] VITALS: BP 126/73
== END 2020-03-06 20:44 | disposition home or self-care (01) ==
LOC: ED 19:08
DX: S20.211A Contusion of right front wall of thorax, initial encounter (principal); W17.89XA Other fall from one level to another, initial encounter; Y92.89 Other specified places as the place of occurrence of the external cause
CPT/HCPCS: 71101; 99283; 99284; A9270

== ENCOUNTER 2020-05-03 12:41 | Emergency (ER) | payer MEDICAID ==
[2020-05-03 13:11] LABS: BASOPHILS % (AUTO) 0.5 %; EOSINOPHILS # (AUTO) 0.1 10^3/uL (0.0-0.7); EOSINOPHILS % (AUTO) 0.7 %; HGB - HEMOGLOBIN 14.8 g/dL (14.0-18.0); LYMPHOCYTES # (AUTO) 2.3 10^3/uL (1.5-3.5); LYMPHOCYTES % (AUTO) 25.6 %; MEAN CORPUSCULAR HEMOGLOBIN 32.9 pg (27.0-31.0); MEAN CORPUSCULAR HGB CONC 34.5 g/dL (32.0-36.0); MEAN CORPUSCULAR VOLUME 95.3 fL (80.0-94.0); MEAN PLATELET VOLUME 8.5 fL (7.4-11.4); MONOCYTES # (AUTO) 0.3 10^3/uL (0.0-1.0); MONOCYTES % (AUTO) 3.7 %; NEUTROPHILS # (AUTO) 6.1 10^3/uL (1.5-6.6); NEUTROPHILS % (AUTO) 69.2 %; PLT - PLATELET COUNT 432 10^3/uL (130-450); WHITE BLOOD COUNT 8.8 x10^3/uL (4.8-10.8)
[2020-05-03 13:23] LABS: ALBUMIN 4.8 g/dL (3.2-5.5); ALBUMIN/GLOBULIN RATIO 1.8 (1.0-2.2); BILIRUBIN,TOTAL 0.6 mg/dL (0.2-1.0); CALCIUM 9.6 mg/dL (8.5-10.3); CREATININE 0.6 mg/dL (0.6-1.2); TOTAL PROTEIN 7.4 g/dL (6.7-8.2)
[2020-05-03] MEDS ORDERED: HYDROmorphone 1 MG/ML CARPUJECT IVP STA (13:30)
[2020-05-03] MEDS ORDERED: ONDANSETRON 4 MG/2 ML VIAL IVP STA (13:30)
[2020-05-03] MEDS ORDERED: IOVERSOL 320 100 ML VIAL IVP ONE ×2 (13:43→15:57)
[2020-05-03 13:48] LABS: BILIRUBIN,URINE NEGATIVE (NEGATIVE); GLUCOSE, URINE (UA) NEGATIVE (NEGATIVE); KETONES,URINE (UA) NEGATIVE (NEGATIVE); LEUKOCYTE ESTERASE, URINE NEGATIVE (NEGATIVE); NITRITE,URINE NEGATIVE (NEGATIVE); OCCULT BLOOD,URINE NEGATIVE (NEGATIVE); PH,URINE 6.5 PH (5.0-7.5); PROTEIN,URINE NEGATIVE (NEGATIVE); UROBILINOGEN,URINE 0.2 (NORMAL) E.U./dL (NORMAL)
[2020-05-03 13:50] LABS: CLARITY,URINE CLEAR (CLEAR)
--- NOTE | 2020-05-03 15:11 | CT Report ---
PROCEDURE: Abdomen/Pelvis W INDICATIONS: LLQ pain for months. CONTRAST: IV CONTRAST: Optiray 320 ml: 100 PO CONTRAST: *NO PO CONTRAST TECHNIQUE: After the administration of weight appropriate dose of intravenous contrast, 5 mm thick sections acqu ired from the diaphragms to the symphysis. 5 mm thick coronal and sagittal reformats were acquired. For radiation dose reduction, the following was used: automated exposure control, adjustment of mA and/or kV according to patient size. COMPARISON: 09/01/2019. FINDINGS: Image quality: Excellent. ABDOMEN: Lung bases: Minimal bibasilar atelectasis; the lung bases are otherwise clear. Heart size is normal. Solid organs: Liver and spleen are normal in size and enhancement. Gallbladder contains a few tiny punctate densities within the dependent portions, compatible with small gallstones. No CT evidence fo r acute cholecystitis. Biliary system is non dilated. Pancreas enhances normally. No adrenal nodul es. Kidneys demonstrate normal size and enhancement, without hydronephrosis. Peritoneum and bowel: Bowel loops demonstrate normal wall thickness and caliber. No free fluid or a ir. Nodes and vessels: No retroperitoneal or mesenteric adenopathy by size criteria. Aorta and inferior vena cava are normal in size. Miscellaneous: No ventral hernias. Very small fat-containing umbilical hernia without acute inflamm atory change. PELVIS: Genitourinary: Bladder wall thickness is normal. Miscellaneous: No inguinal hernias or adenopathy. Bones: No suspicious bony lesions. No vertebral body compression fractures. IMPRESSION: CT abdomen and pelvis without acute abnormalities to explain patient's symptoms. Tiny punctate densities in the dependent portions of the gallbladder suspected to represent gallstone s. No CT evidence for acute cholecystitis. Reviewed by: Reuben Duke MD on 05/03/2020 2:10 PM [place] Approved by: Reuben Duke MD on 05/03/2020 2:10 PM [facility] Station ID: [id number]
[2020-05-03 15:14] VITALS: BP 128/82
--- NOTE | 2020-05-03 15:18 | ED Physician Documentation ---
PD HPI ABD PAIN - Stated complaint Stated Complaint: ABD PX - Chief complaint Chief Complaint: Abd Pain - History obtained from History obtained from: Patient, Family - History of Present Illness Timing - onset: How many weeks ago (1) Timing - duration: Weeks (1) Timing - details: Gradual onset, Still present Quality: Sharp, Pain Location: LLQ Improved by: Laying still Worsened by: Moving, Position, Palpation Associated symptoms: No: Fever, Nausea, Vomiting, Hematemesis, Diarrhea, Constipation, Chest pain, Loss of appetite Similar symptoms before: Diagnosis (ruptured appensix) Recently seen: Not recently seen - Additional information Additional information: 39-year-old male who is on pain management for back and neck pain has had a ruptured appendix in August of this year and following that he has had pain in the left lower quadrant of his abdomen. He states that this pain has been been worse at sometimes and better at sometimes but always present and he describes a feeling that if he tries to push while he is having a bowel movement something might explode inside. He states that he is reluctant to push for bowel movement because of the sensation and the fact that he has had a ruptured appendix previously. He spent several days in the hospital with this. He otherwise is not having visceral symptoms he is not having nausea vomiting or diarrhea. He indicates that the pain has been present all of these months and this past week has been more than usual. Review of Systems Constitutional: denies: Fever Eyes: denies: Decreased vision Ears: denies: Ear pain Nose: denies: Congestion Throat: denies: Sore throat Cardiac: denies: Chest pain / pressure, Palpitations Respiratory: denies: Dyspnea, Cough GI: reports: Abdominal Pain. denies: Abdominal Swelling, Nausea, Vomiting, Constipation, Diarrhea : denies: Dysuria, Frequency Skin: denies: Rash Musculoskeletal: reports: Neck pain, Back pain. denies: Extremity pain Neurologic: denies: Generalized weakness, Focal weakness, Numbness PD PAST MEDICAL HISTORY - Past Medical History Cardiovascular: None Respiratory: None Neuro: None Endocrine/Autoimmune: None GI: None : None HEENT: None Psych: None Musculoskeletal: Chronic back pain Derm: None - Past Surgical History Past Surgical History: No General: Cholecystectomy, Appendectomy - Present Medications Home Medications: Ambulatory Orders Medication Instructions Recorded Confirmed Gabapentin 1,200 mg ORAL TID 06/21/18 09/02/19 Ibuprofen [Motrin] 600 mg ORAL BID 06/21/18 09/02/19 Prazosin [Minipress] 2 mg ORAL DAILY 06/21/18 09/02/19 raNITIdine [Zantac] 150 mg PO DAILY PRN 06/21/18 09/02/19 lamoTRIgine [LaMICtal] 200 mg ORAL DAILY 09/01/19 09/01/19 Acyclovir 400 mg PO Q8H 09/02/19 09/02/19 Cetirizine [ZyrTEC] 10 mg PO DAILY 09/02/19 09/02/19 Fluticasone [Flonase] 1 spray MUSHTAQ DAILY PRN 09/02/19 09/02/19 HYDROcodone/ACET 10/325 [[place] 10 1 tab PO DAILY PRN 09/02/19 09/02/19 mg/325 mg] Prazosin HCl 4 mg PO QPM 09/02/19 09/02/19 methocarbamoL [Methocarbamol] 1,500 mg PO BID PRN 09/02/19 09/02/19 Levofloxacin [Levaquin] 500 mg PO DAILY #7 tablet 09/06/19 oxyCODONE [Roxicodone] 5 mg PO Q4H PRN #30 tablet 09/06/19 predniSONE [Prednisone] 40 mg PO DAILY #10 tablet 01/27/20 oxyCODONE [Roxicodone] 5 mg PO Q6H PRN #5 tablet 03/03/20 Oxycodone HCl 5 - 10 mg PO Q6H PRN #10 tablet 03/06/20 - Allergies Allergies/Adverse Reactions: Allergies Allergy/AdvReac Type Severity Reaction Status Date / Time amoxicillin Allergy Anaphylaxis Verified 05/03/20 12:49 amitriptyline AdvReac Hallucinati Verified 05/03/20 12:49 ons diphenhydramine AdvReac Hallucinati Verified 05/03/20 12:49 [From Benadryl] ons haloperidol [From Haldol] AdvReac Hallucinati Verified 05/03/20 12:49 ons - Social History Does the pt smoke?: No Smoking Status: Never smoker Does the pt drink ETOH?: No Does the pt have substance abuse?: No - Immunizations Immunizations are current?: Yes - POLST Patient has POLST: No POLST Status: Full Code PD ED PE NORMAL - Vitals Vital signs reviewed: Yes (normal ) - General General: Alert and oriented X 3, No acute distress, Well developed/nourished - HEENT HEENT: Atraumatic, PERRL, EOMI - Neck Neck: Supple, no meningeal sign, No bony TTP - Cardiac Cardiac: RRR, No murmur - Respiratory Respiratory: No respiratory distress, Clear bilaterally - Abdomen Abdomen: Normal bowel sounds, Soft, Non distended, No organomegaly, Other (There is specific tenderness to the left lower quadrant with some garding but no referred tenderness, no obvious mass and no inflamation to the skin. The umbilical area is without inflation or tenderness. ) - Back Back: No CVA TTP, No spinal TTP - Derm Derm: Normal color, Warm and dry, No rash - Extremities Extremities: No deformity, No edema - Neuro Neuro: Alert and oriented X 3, polysomnography technician 2-12 intact, No motor deficit, No sensory deficit, Normal speech Eye Opening: Spontaneous Motor: Obeys Commands Verbal: Oriented GCS Score: 15 - Psych Psych: Normal mood, Normal affect Results - Vitals Vitals: Vital Signs - 24 hr 05/03/20 05/03/20 12:45 15:10 Temperature 36.7 C Heart Rate 80 51 L Respiratory 16 18 Rate Blood Pressure 126/74 128/82 H O2 Saturation 100 99 Oxygen O2 Source Room air - Labs Labs: Laboratory Tests 05/03/20 05/03/20 05/03/20 13:07 13:07 13:39 WBC 8.8 RBC 4.50 L Hgb 14.8 Hct 42.9 MCV 95.3 H MCH 32.9 H MCHC 34.5 RDW 12.0 Plt Count 432 MPV 8.5 Neut # (Auto) 6.1 Lymph # (Auto) 2.3 Coke # (Auto) 0.3 Eos # (Auto) 0.1 Baso # (Auto) 0.0 Absolute Nucleated RBC 0.00 Nucleated RBC % 0.0 Sodium 136 Potassium 4.1 Chloride 104 Carbon Dioxide 22 Anion Gap 10.0 BUN 16 Creatinine 0.6 Estimated GFR (MDRD) 148 Glucose 114 H Calcium 9.6 Total Bilirubin 0.6 AST 16 ALT 17 Alkaline Phosphatase 50 Total Protein 7.4 Albumin 4.8 Globulin 2.6 Albumin/Globulin Ratio 1.8 Lipase 30 Urine Color LIGHT YELLOW Urine Clarity CLEAR Urine pH 6.5 Ur Specific [place] <=1.005 Urine Protein NEGATIVE Urine Glucose (UA) NEGATIVE Urine Ketones NEGATIVE Urine Occult Blood NEGATIVE Urine Nitrite NEGATIVE Urine Bilirubin NEGATIVE Urine Urobilinogen 0.2 (NORMAL) Ur Leukocyte Esterase NEGATIVE Ur Microscopic Review NOT INDICATED Urine Culture Comments NOT INDICATED - Rads (name of study) CT ab/pel w Radiology: Prelim report reviewed (Impression: CT abdomen and pelvis without acute abnormalities to explain patient's symptoms. Tiny punctate densities in the dependent portions of the gallbladder suspected to represent gallstones. No CT evidence for acute cholecystitis.), EMP read indepedently, See rad report PD MEDICAL DECISION MAKING - ED course Complexity details: reviewed old records, reviewed results, re-evaluated patient, considered differential, d/w patient, d/w family ED course: 39 y/o male with left lower quadrant pain worse this week than usual asks for pain medication for this pain. He is administered IV dilaudid with improvement. His work up is otherwise unremarkable. His CT scan is without obvious inflammation, blockage, hernia, stone or specific abnormality to explain left lower quadrant abdominal pain. There is a fair amount of stool and gas throughout the colon but not likely the explanation for months of pain. I have asked the patient to follow up with surgery for any specific recommendations and I have indicated that if this is an abdominal muscle strain this could take months to improve. Further pain management should come from pain management. Departure - Departure Disposition: 01 Home, Self Care Clinical Impression: Abdominal wall pain in left lower quadrant Condition: Stable Instructions: ED Strain Abdominal Muscle Follow-Up: Harvey Ortiz MD [Provider Admit Priv/Credential] - Comments: Today we did not find abnormalities of your blood work or your CT scan to explain your symptoms. The most likely explanation of your symptoms is a strain to the abdominal wall muscle and this can take a much longer time to heal than expected. Follow up with the surgeon.
== END 2020-05-03 16:46 | disposition home or self-care (01) ==
LOC: ED 12:41
DX: R10.32 Left lower quadrant pain (principal)
CPT/HCPCS: 36415; 74177; 80053; 81003; 83690; 85025; 96374; 99284; J1170; Q9967; 81001; 87086

== ENCOUNTER 2020-06-12 12:04 | Emergency (ER) | payer MEDICAID ==
[2020-06-12] MEDS ORDERED: methocarbamoL 500 MG TABLET PO STA (12:51)
[2020-06-12] MEDS ORDERED: oxyCODONE 5 MG TABLET PO STA (12:51)
[2020-06-12] MEDS ORDERED: KETOROLAC 60 MG/2 ML VIAL IM STA (12:51)
--- NOTE | 2020-06-12 12:54 | ED Physician Documentation ---
History of Present Illness - Stated complaint Stated Complaint: LEFT SIDED GROIN PAIN - Chief complaint Chief Complaint: General - History obtained from History obtained from: Patient - History of Present Illness Timing: Yesterday Pain level max: 10 Pain level now: 7 - Additonal information Additional information: Patient is a 39-year-old male who presents to the emergency department with left groin pain. He states he is awaiting a hernia repair in the left groin on Sunday at [facility] in [place]. He states that he fell last night and has increased pain. Taking his Vicodin at home without relief. Worse with movement, better with rest. No vomiting. no head or neck or back pain. no abd pain. Review of Systems Constitutional: denies: Fever, Chills Respiratory: denies: Cough GI: denies: Vomiting, Diarrhea Skin: denies: Rash Musculoskeletal: denies: Neck pain, Back pain Neurologic: denies: Headache PD PAST MEDICAL HISTORY - Past Medical History Cardiovascular: None Respiratory: None Neuro: None Endocrine/Autoimmune: None GI: None : None HEENT: None Psych: None Musculoskeletal: Chronic back pain Derm: None - Past Surgical History Past Surgical History: No General: Cholecystectomy, Appendectomy - Present Medications Home Medications: Ambulatory Orders Medication Instructions Recorded Confirmed Gabapentin 1,200 mg ORAL TID 06/21/18 09/02/19 Ibuprofen [Motrin] 600 mg ORAL BID 06/21/18 09/02/19 Prazosin [Minipress] 2 mg ORAL DAILY 06/21/18 09/02/19 raNITIdine [Zantac] 150 mg PO DAILY PRN 06/21/18 09/02/19 lamoTRIgine [LaMICtal] 200 mg ORAL DAILY 09/01/19 09/01/19 Acyclovir 400 mg PO Q8H 09/02/19 09/02/19 Cetirizine [ZyrTEC] 10 mg PO DAILY 09/02/19 09/02/19 Fluticasone [Flonase] 1 spray MUSHTAQ DAILY PRN 09/02/19 09/02/19 HYDROcodone/ACET 10/325 [[place] 10 1 tab PO DAILY PRN 09/02/19 09/02/19 mg/325 mg] Prazosin HCl 4 mg PO QPM 09/02/19 09/02/19 methocarbamoL [Methocarbamol] 1,500 mg PO BID PRN 09/02/19 09/02/19 Levofloxacin [Levaquin] 500 mg PO DAILY #7 tablet 09/06/19 oxyCODONE [Roxicodone] 5 mg PO Q4H PRN #30 tablet 09/06/19 predniSONE [Prednisone] 40 mg PO DAILY #10 tablet 01/27/20 oxyCODONE [Roxicodone] 5 mg PO Q6H PRN #5 tablet 03/03/20 Oxycodone HCl 5 - 10 mg PO Q6H PRN #10 tablet 03/06/20 Ibuprofen [Motrin] 800 mg PO Q8H PRN #30 tablet 06/12/20 Oxycodone HCl/Acetaminophen 1 - 2 each PO Q6H PRN #12 tablet 06/12/20 [Percocet 5-325 mg Tablet] methocarbamoL [Robaxin] 500 mg PO Q6H PRN #14 tablet 06/12/20 - Allergies Allergies/Adverse Reactions: Allergies Allergy/AdvReac Type Severity Reaction Status Date / Time amoxicillin Allergy Anaphylaxis Verified 06/12/20 12:09 amitriptyline AdvReac Hallucinati Verified 06/12/20 12:09 ons diphenhydramine AdvReac Hallucinati Verified 06/12/20 12:09 [From Benadryl] ons haloperidol [From Haldol] AdvReac Hallucinati Verified 06/12/20 12:09 ons - Social History Does the pt smoke?: No Smoking Status: Never smoker Does the pt drink ETOH?: No Does the pt have substance abuse?: No - Immunizations Immunizations are current?: Yes - POLST Patient has POLST: No POLST Status: Full Code PD ED PE NORMAL - Vitals Vital signs reviewed: Yes - General General: Alert and oriented X 3, No acute distress, Well developed/nourished - HEENT HEENT: PERRL, Moist mucous membranes - Neck Neck: Supple, no meningeal sign - Cardiac Cardiac: RRR, Strong equal pulses - Respiratory Respiratory: No respiratory distress, Clear bilaterally - Abdomen Abdomen: Soft, Non tender, Non distended - Derm Derm: Warm and dry - Extremities Extremities: No deformity, No edema, No calf tenderness / cord, Other (no bony tenderness over the pelvis, hip, pubic rami or symphysis. no pain of the L hip with passive ROM. increase pain with active ROM. NVI. no palpable hernia currently.) - Neuro Neuro: Alert and oriented X 3 - Psych Psych: Normal mood, Normal affect Results - Vitals Vitals: Vital Signs - 24 hr 06/12/20 12:07 Temperature 37 C Heart Rate 81 Respiratory 16 Rate Blood Pressure 119/81 H O2 Saturation 98 Oxygen O2 Source Room air PD MEDICAL DECISION MAKING - ED course Complexity details: reviewed old records, considered differential, d/w patient ED course: 39-year-old male presents to the emergency department that appointment appears to be a groin strain. No palpable hernia. No incarcerated hernia. No bruising. No swelling. Neurovascular intact. He is on a pain contract and states that he will tell his doctor on Sunday if he is prescribed medications here. Will prescribe a small amount of NSAIDs, muscle relaxants and oxycodone. We will have him follow-up with his doctor for further care. Patient walks with a cane at baseline. He states he has crutches at home as well. Patient counseled regarding signs and symptoms for which I believe and urgent re- evaluation would be necessary. Patient with good understanding of and agreement to plan and is comfortable going home at this time This document was made in part using voice recognition software. While efforts are made to proofread this document, sound alike and grammatical errors may occur. Departure - Departure Disposition: 01 Home, Self Care Clinical Impression: Strain of left groin Condition: Good Instructions: ED Strain Groin Follow-Up: ANDERSON KELLEY MD [Primary Care Provider] - Within 1 week Prescriptions: Ibuprofen [Motrin] 800 mg PO Q8H PRN #30 tablet PRN Reason: PAIN &/OR FEVER Oxycodone HCl/Acetaminophen [Percocet 5-325 mg Tablet] 1 - 2 each PO Q6H PRN #12 tablet PRN Reason: pain methocarbamoL [Robaxin] 500 mg PO Q6H PRN #14 tablet PRN Reason: muscle strain Comments: Follow-up with your doctor for further care. You will need to talk to your doctor on Sunday about pain medication. Do not drive or operate machinery while taking the pain medication or Robaxin. Do not drink alcohol or drive while on narcotic pain medicine. Note that many narcotic pain relievers also contain tylenol/acetaminophen. Please ensure that your total dose of acetaminophen from all sources does not exceed 3 grams (3000mg) per day. You may constipated on this medication, take a stool softener such as "Colace" twice a day while you are on it. Also recommend a texr-[id number]-[id number] laxative such as senna or MiraLAX any day that you do not have a bowel movement. If you received narcotic pain medication in the emergency department, do not drive or operate machinery for the next 24 hours.
[2020-06-12 13:34] VITALS: BP 125/79
== END 2020-06-12 13:38 | disposition home or self-care (01) ==
LOC: ED 12:04
DX: S39.011A Strain of muscle, fascia and tendon of abdomen, initial encounter (principal); W18.39XA Other fall on same level, initial encounter
CPT/HCPCS: 96372; 99283; 99284; A9270

== ENCOUNTER 2020-06-21 14:19 | Emergency (ER) | payer MEDICAID ==
--- NOTE | 2020-06-21 14:51 | ED Physician Documentation ---
History of Present Illness - Stated complaint Stated Complaint: POST OP PX - Chief complaint Chief Complaint: General - History obtained from History obtained from: Patient - History of Present Illness Timing: How many days ago (2) - Additonal information Additional information: 47-year-old male with chronic pain on pain management has had a surgical procedure to his left inguinal area for a hernia repair and apparently there is some damage to the inguinal ligament as well and the patient has run out of his pain medication and he continues to have pain and he is now having discoloration to his scrotum that is very concerning to him. He does have some tenderness there and he does not think this is out of proportion. He has not been ill recently Review of Systems Constitutional: denies: Fever Eyes: denies: Decreased vision Ears: denies: Ear pain Nose: denies: Congestion Throat: denies: Sore throat Cardiac: denies: Chest pain / pressure, Palpitations Respiratory: denies: Dyspnea, Cough GI: denies: Abdominal Pain, Nausea, Vomiting : denies: Dysuria PD PAST MEDICAL HISTORY - Past Medical History Cardiovascular: None Respiratory: None Neuro: None Endocrine/Autoimmune: None GI: None : None HEENT: None Psych: None Musculoskeletal: Chronic back pain Derm: None - Past Surgical History Past Surgical History: No General: Cholecystectomy, Appendectomy - Present Medications Home Medications: Ambulatory Orders Medication Instructions Recorded Confirmed Gabapentin 1,200 mg ORAL TID 06/21/18 06/21/20 Ibuprofen [Motrin] 600 mg ORAL BID 06/21/18 06/21/20 Prazosin [Minipress] 2 mg ORAL DAILY 06/21/18 06/21/20 raNITIdine [Zantac] 150 mg PO DAILY PRN 06/21/18 06/21/20 lamoTRIgine [LaMICtal] 200 mg ORAL DAILY 09/01/19 06/21/20 Acyclovir 400 mg PO Q8H 09/02/19 06/21/20 Cetirizine [ZyrTEC] 10 mg PO DAILY 09/02/19 06/21/20 Fluticasone [Flonase] 1 spray MUSHTAQ DAILY PRN 09/02/19 06/21/20 HYDROcodone/ACET 10/325 [[place] 10 1 tab PO DAILY PRN 09/02/19 06/21/20 mg/325 mg] Prazosin HCl 4 mg PO QPM 09/02/19 06/21/20 methocarbamoL [Methocarbamol] 1,500 mg PO BID PRN 09/02/19 06/21/20 Levofloxacin [Levaquin] 500 mg PO DAILY #7 tablet 09/06/19 06/21/20 oxyCODONE [Roxicodone] 5 mg PO Q4H PRN #30 tablet 09/06/19 06/21/20 predniSONE [Prednisone] 40 mg PO DAILY #10 tablet 01/27/20 06/21/20 oxyCODONE [Roxicodone] 5 mg PO Q6H PRN #5 tablet 03/03/20 06/21/20 Oxycodone HCl 5 - 10 mg PO Q6H PRN #10 tablet 03/06/20 06/21/20 Ibuprofen [Motrin] 800 mg PO Q8H PRN #30 tablet 06/12/20 06/21/20 Oxycodone HCl/Acetaminophen 1 - 2 each PO Q6H PRN #12 tablet 06/12/20 06/21/20 [Percocet 5-325 mg Tablet] methocarbamoL [Robaxin] 500 mg PO Q6H PRN #14 tablet 06/12/20 06/21/20 Hydrocodone/Acetaminophen [[place] 1 - 2 each PO Q6HR PRN #14 tablet 06/21/20 5-325 Tablet] - Allergies Allergies/Adverse Reactions: Allergies Allergy/AdvReac Type Severity Reaction Status Date / Time amoxicillin Allergy Anaphylaxis Verified 06/21/20 14:33 amitriptyline AdvReac Hallucinati Verified 06/21/20 14:33 ons diphenhydramine AdvReac Hallucinati Verified 06/21/20 14:33 [From Benadryl] ons haloperidol [From Haldol] AdvReac Hallucinati Verified 06/21/20 14:33 ons - Social History Does the pt smoke?: No Smoking Status: Never smoker Does the pt drink ETOH?: No Does the pt have substance abuse?: No - Immunizations Immunizations are current?: Yes - POLST Patient has POLST: No POLST Status: Full Code PD ED PE NORMAL - Vitals Vital signs reviewed: Yes (hypertesnsive mild ) - General General: Alert and oriented X 3, No acute distress, Well developed/nourished - HEENT HEENT: Atraumatic, PERRL, EOMI - Respiratory Respiratory: No respiratory distress - Male Male : Other (There is a fresh surgical scar to the left inguinal area without evidence of inflamation. 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, No motor deficit, No sensory deficit, Normal speech Eye Opening: Spontaneous Motor: Obeys Commands Verbal: Oriented GCS Score: 15 - Psych Psych: Normal mood, Normal affect Results - Vitals Vitals: Vital Signs - 24 hr 06/21/20 06/21/20 14:29 14:33 Temperature 36.9 C 36.7 C Heart Rate 70 67 Respiratory 18 16 Rate Blood Pressure 137/91 H 135/79 H O2 Saturation 99 99 Oxygen O2 Source Room air PD MEDICAL DECISION MAKING - ED course Complexity details: reviewed old records, considered differential, d/w patient ED course: 39-year-old male on pain management with chronic left lower abdomen pain has had a recent inguinal surgery repair and he is now run out of his pain medication is come to the emergency department for pain medication. He indicates his surgeon told him he would need to go to the ED for pain medication as he should be examined. The patient has poor pain tolerance and relies on narcotic for pain control. He is given a script for hydrocodone and a referral back to the surgeon. His exam appears consistent with post op day #5. Departure - Departure Disposition: 01 Home, Self Care Clinical Impression: Post-operative pain Condition: Stable Instructions: ED Post Op Pain Follow-Up: NED STEELE MD [Physician No Access] - Prescriptions: Hydrocodone/Acetaminophen [[place] 5-325 Tablet] 1 - 2 each PO Q6HR PRN #14 tablet PRN Reason: Pain
[2020-06-21 14:55] VITALS: BP 135/79
== END 2020-06-21 15:19 | disposition home or self-care (01) ==
LOC: ED 14:19
DX: G89.28 Other chronic postprocedural pain (principal); R10.32 Left lower quadrant pain; Z98.890 Other specified postprocedural states
CPT/HCPCS: 99282; 99284

== ENCOUNTER 2020-07-24 08:17 | Inpatient (IN) | payer MEDICAID ==
--- NOTE | 2020-07-24 08:32 | ED Physician Documentation ---
PD HPI ABD PAIN - Stated complaint Stated Complaint: ABD PX - History obtained from History obtained from: Patient - History of Present Illness Timing - onset: How many days ago (2) Timing - duration: Days (has had some mild increased pain lower abd for couple of days, but abruptly worse overnight/this morning. Rates the pain as similar to his ruptured appendicitis.) Timing - details: Gradual onset (for 1-2 days, then abruptly worse overnight/today), Still present Quality: Cramping, Aching, Pain Location: All over / everywhere, RLQ, LLQ Radiation: Lower back Improved by: Laying still Worsened by: Moving, Palpation Associated symptoms: Nausea, Loss of appetite. No: Fever, Vomiting, Diarrhea, Dysuria Recently seen: Emergency Dept (06/20/2020 for post op pain inguinal area.), Surgery (left inguinal hernia repair Jun 2020, healing okay.) Review of Systems Constitutional: denies: Fever, Chills Nose: denies: Rhinorrhea / runny nose, Congestion Throat: denies: Sore throat Respiratory: denies: Cough GI: reports: Abdominal Pain, Nausea. denies: Vomiting, Diarrhea, Bloody / black stool : denies: Dysuria, Frequency Skin: denies: Rash Neurologic: reports: Generalized weakness. denies: Near syncope, Altered mental status PD PAST MEDICAL HISTORY - Past Medical History Cardiovascular: None Respiratory: None Neuro: None Endocrine/Autoimmune: None GI: None : None HEENT: None Psych: None Musculoskeletal: Chronic back pain Derm: None - Past Surgical History Past Surgical History: No General: Cholecystectomy, Appendectomy (August 2019, perforated), Other (left inguinal hernia repair Jun 2020) - Present Medications Home Medications: Ambulatory Orders Medication Instructions Recorded Confirmed Gabapentin 1,200 mg ORAL TID 06/21/18 06/21/20 Ibuprofen [Motrin] 600 mg ORAL BID 06/21/18 06/21/20 Prazosin [Minipress] 2 mg ORAL DAILY 06/21/18 06/21/20 raNITIdine [Zantac] 150 mg PO DAILY PRN 06/21/18 06/21/20 lamoTRIgine [LaMICtal] 200 mg ORAL DAILY 09/01/19 06/21/20 Acyclovir 400 mg PO Q8H 09/02/19 06/21/20 Cetirizine [ZyrTEC] 10 mg PO DAILY 09/02/19 06/21/20 Fluticasone [Flonase] 1 spray MUSHTAQ DAILY PRN 09/02/19 06/21/20 HYDROcodone/ACET 10/325 [[place] 10 1 tab PO DAILY PRN 09/02/19 06/21/20 mg/325 mg] Prazosin HCl 4 mg PO QPM 09/02/19 06/21/20 methocarbamoL [Methocarbamol] 1,500 mg PO BID PRN 09/02/19 06/21/20 Levofloxacin [Levaquin] 500 mg PO DAILY #7 tablet 09/06/19 06/21/20 oxyCODONE [Roxicodone] 5 mg PO Q4H PRN #30 tablet 09/06/19 06/21/20 predniSONE [Prednisone] 40 mg PO DAILY #10 tablet 01/27/20 06/21/20 oxyCODONE [Roxicodone] 5 mg PO Q6H PRN #5 tablet 03/03/20 06/21/20 Oxycodone HCl 5 - 10 mg PO Q6H PRN #10 tablet 03/06/20 06/21/20 Ibuprofen [Motrin] 800 mg PO Q8H PRN #30 tablet 06/12/20 06/21/20 Oxycodone HCl/Acetaminophen 1 - 2 each PO Q6H PRN #12 tablet 06/12/20 06/21/20 [Percocet 5-325 mg Tablet] methocarbamoL [Robaxin] 500 mg PO Q6H PRN #14 tablet 06/12/20 06/21/20 Hydrocodone/Acetaminophen [[place] 1 - 2 each PO Q6HR PRN #14 tablet 06/21/20 5-325 Tablet] - Allergies Allergies/Adverse Reactions: Allergies Allergy/AdvReac Type Severity Reaction Status Date / Time amoxicillin Allergy Anaphylaxis Verified 07/24/20 08:34 amitriptyline AdvReac Hallucinati Verified 07/24/20 08:34 ons diphenhydramine AdvReac Hallucinati Verified 07/24/20 08:34 [From Benadryl] ons haloperidol [From Haldol] AdvReac Hallucinati Verified 07/24/20 08:34 ons - Social History Does the pt smoke?: No Smoking Status: Never smoker Does the pt drink ETOH?: No Does the pt have substance abuse?: No - Immunizations Immunizations are current?: Yes - POLST Patient has POLST: No POLST Status: Full Code PD ED PE NORMAL - Vitals Vital signs reviewed: Yes - General General: Alert and oriented X 3, Well developed/nourished, Other (in significant pain with general abd tenderness. ) - Neck Neck: Supple, no meningeal sign, No adenopathy - Cardiac Cardiac: RRR, No murmur - Respiratory Respiratory: Clear bilaterally - Abdomen Abdomen: Soft, Non distended, No organomegaly, Other (diffusely tender with guarding and percussion tenderness. Some rebound in lower abd, and worse tenderness lower abd left and right. No redness at prior scars. ). No: Normal bowel sounds (hyperactive) - Male Male : Deferred, Other (left inguinal area with healed scar. No redness. No bruising noted of the inguinal nor scrotal area. ) - Rectal Rectal: Deferred - Back Back: No CVA TTP - Derm Derm: Normal color, Warm and dry - Extremities Extremities: Normal ROM s pain - Neuro Neuro: Alert and oriented X 3, No motor deficit, Normal speech Results - Vitals Vitals: Vital Signs - 24 hr 07/24/20 08:28 Temperature 37.2 C Heart Rate 66 Respiratory 18 Rate Blood Pressure 135/78 H O2 Saturation 99 Oxygen O2 Source Room air - Labs Labs: Laboratory Tests 07/24/20 07/24/20 08:40 08:40 WBC 15.4 H RBC 4.27 L Hgb 14.3 Hct 41.5 L MCV 97.2 H MCH 33.5 H MCHC 34.5 RDW 12.9 Plt Count 403 MPV 8.7 Neut # (Auto) 13.1 H Lymph # (Auto) 1.5 [place] # (Auto) 0.6 Eos # (Auto) 0.1 Baso # (Auto) 0.0 Absolute Nucleated RBC 0.00 Nucleated RBC % 0.0 Sodium 141 Potassium 3.7 Chloride 105 Carbon Dioxide 26 Anion Gap 10.0 BUN 14 Creatinine 0.6 Estimated GFR (MDRD) 148 Glucose 100 Calcium 10.0 Total Bilirubin 0.6 AST 16 ALT 20 Alkaline Phosphatase 47 Total Protein 6.7 Albumin 4.6 Globulin 2.1 Albumin/Globulin Ratio 2.2 Lipase 36 - Rads (name of study) abd CT Radiology: Prelim report reviewed (rectosigmoid colitis. No perforation nor abscess. ), See rad report PD MEDICAL DECISION MAKING - ED course Complexity details: reviewed results (rectosigmoid colitis. Pt denies any enemas, rectal foreign bodies/intercourse, etc. Presume possible small diverticula or scar tissue as initial cause. ), re-evaluated patient (needing repeat doses pain meds. Pain now down to 6/10. Presume infectious colitis. No history of immune colitis. Has some general peritoneal findings on exam, which is of concern. ), considered differential, d/w patient Departure - Departure Disposition: ED Place in Observation Clinical Impression: Acute colitis, Intractable abdominal pain Condition: Stable Record reviewed to determine appropriate education?: Yes
[2020-07-24 08:53] LABS: BASOPHILS % (AUTO) 0.2 %; EOSINOPHILS # (AUTO) 0.1 10^3/uL (0.0-0.7); EOSINOPHILS % (AUTO) 0.8 %; HGB - HEMOGLOBIN 14.3 g/dL (14.0-18.0); LYMPHOCYTES # (AUTO) 1.5 10^3/uL (1.5-3.5); LYMPHOCYTES % (AUTO) 9.6 %; MEAN CORPUSCULAR HEMOGLOBIN 33.5 pg (27.0-31.0); MEAN CORPUSCULAR HGB CONC 34.5 g/dL (32.0-36.0); MEAN CORPUSCULAR VOLUME 97.2 fL (80.0-94.0); MEAN PLATELET VOLUME 8.7 fL (7.4-11.4); MONOCYTES # (AUTO) 0.6 10^3/uL (0.0-1.0); MONOCYTES % (AUTO) 3.7 %; NEUTROPHILS # (AUTO) 13.1 10^3/uL (1.5-6.6); NEUTROPHILS % (AUTO) 85.4 %; PLT - PLATELET COUNT 403 10^3/uL (130-450); RED BLOOD COUNT 4.27 10^6/uL (4.70-6.10); RED CELL DISTRIBUTION WIDTH 12.9 % (12.0-15.0); WHITE BLOOD COUNT 15.4 x10^3/uL (4.8-10.8)
[2020-07-24] MEDS ORDERED: ONDANSETRON 4 MG/2 ML VIAL IVP STA (08:58)
[2020-07-24] MEDS ORDERED: SODIUM CHLORIDE 0.9% 1,000 ML IV STA (08:58)
[2020-07-24] MEDS ORDERED: KETOROLAC 30 MG/ML VIAL IVP STA (08:58)
[2020-07-24] MEDS ORDERED: HYDROmorphone 1 MG/ML CARPUJECT IVP STA ×2 (08:58→09:40)
[2020-07-24 09:07] LABS: ALBUMIN 4.6 g/dL (3.2-5.5); ALBUMIN/GLOBULIN RATIO 2.2 (1.0-2.2); BILIRUBIN,TOTAL 0.6 mg/dL (0.2-1.0); CREATININE 0.6 mg/dL (0.6-1.2); TOTAL PROTEIN 6.7 g/dL (6.7-8.2)
[2020-07-24] MEDS ORDERED: IOVERSOL 320 100 ML VIAL IVP ONE ×2 (09:17→10:44)
--- NOTE | 2020-07-24 09:54 | CT Report ---
PROCEDURE: Abdomen/Pelvis W INDICATIONS: lower abd pain and nausea, acute CONTRAST: IV CONTRAST: Optiray 320 ml: 100 PO CONTRAST: *NO PO CONTRAST TECHNIQUE: After the administration of nonionic contrast, 5 mm thick sections acquired from the diaphragms to th e symphysis. 5 mm thick coronal and sagittal reformats were acquired. For radiation dose reduction, the following was used: automated exposure control, adjustment of mA and/or kV according to patient size. COMPARISON: None. FINDINGS: Image quality: Excellent. ABDOMEN: Lung bases: Mild right basilar dependent atelectasis. Lung bases are otherwise clear. Inferior medias tinum is unremarkable. Solid organs: Liver and spleen are normal in size and enhancement. Gallbladder is unremarkable in appearance Biliary system is non dilated. Pancreas enhances normally. There is mild dilation of th e pancreatic duct measuring up to 6 mm at the head and body. No adrenal nodules. Kidneys demonstrate normal size and enhancement, without hydronephrosis. Peritoneum and bowel: Stomach and small bowel are grossly unremarkable without evidence of obstructio n, focal wall thickening, or surrounding inflammation. No evidence of appendicitis. There is diffuse wall thickening and surrounding inflammation of the distal sigmoid colon and rectum with relative spa ring of the distal rectum and anus. There is a small amount of adjacent ascites. No abscess formation . Nodes and vessels: No retroperitoneal or mesenteric adenopathy by size criteria. Aorta and inferior vena cava are normal in size. Miscellaneous: Small fat-containing periumbilical hernia.. PELVIS: Genitourinary: Bladder wall thickness is normal. Miscellaneous: No inguinal hernias or adenopathy. Bones: No suspicious bony lesions. No vertebral body compression fractures. IMPRESSION: Findings most consistent with rectosigmoid colitis. There is diffuse wall thickening, surrounding inf lammation, and a small amount of adjacent ascites. No abscess formation. Mild dilation of the pancreatic duct. Recommend nonemergent MRI evaluation to include MRCP. Reviewed by: Michael Martínez DO on 07/24/2020 8:53 AM [facility] Approved by: Michael Martínez DO on 07/24/2020 8:53 AM [facility] Station ID: [id number]
[2020-07-24] MEDS ORDERED: cefTRIAXone 1 GM VIAL IVP STA (10:04)
[2020-07-24] MEDS ORDERED: metroNIDAZOLE 500 MG/100 ML 500 MG/100 ML BAG IV ONE (10:05)
[2020-07-24] MEDS ORDERED: MORPHINE 2 MG/ML CARPUJECT IVP PRN (10:09)
--- NOTE | 2020-07-24 10:20 | HISTORY & PHYSICAL EXAMINATION ---
Chief Complaint - Chief Complaint Chief Complaint: Abdominal pain. History of Present Illness - Admitted From Admitted From:: Home - History Obtained From Records Reviewed: Yes History obtained from: Patient, ER Physician, EMR - History of Present Illness HPI Comment/Other: 40-year-old male with a past medical history significant for chronic pain, PTSD who presents today complaining of abdominal pain that woke him up this morning. He states he was asleep last night feeling well. This morning he woke up to pain in his lower abdomen. It is about a 7/8 out of 10. He has no nausea or vomiting. He denies any diarrhea or blood in his stools. Reports no fevers or chills. He denies any dysuria or urgency. He states he had an open inguinal he rnia repair last month at [facility] and he has had some numbness below the incision site. He was also hospitalized last year for ruptured appendix. He reports never having a colonoscopy. He states both his parents have no history of colon cancer or inflammatory bowel disease. In the emergency department, he is found to be hemodynamically stable. Labs significant for a white count of 15,000. He underwent a CT of the abdomen pelvis which was consistent with rectosigmoid colitis. He also had mild pancreatic duct dilatation. He required multiple doses of IV Dilaudid in the emergency department but he continued to have pain was poorly controlled. Given the above findings, medicine was consulted for admission. History - Past Medical History Cardiovascular: reports: None Respiratory: reports: None Neuro: reports: None Endocrine/Autoimmune: reports: None GI: reports: None : reports: None HEENT: reports: None Psych: reports: Post traumatic stress disorder Musculoskeletal: reports: Chronic back pain Derm: reports: None MRSA Hx?: No - Past Surgical History General: reports: Cholecystectomy, Appendectomy (August 2019, perforated), Other (left inguinal hernia repair Jun 2020) - Family & Social History Family History Comment/Other: He states his parents had no history of colon cancer or informatory bowel disease. He believes stomach cancer may run in his family. Reports his father from myocardial infarction. Living arrangement: At home Living Situation: With spouse/s.o. Social History Notes: Lives at home with his . He is a musician and a hodges. He ambulates with a cane at baseline due to his chronic pain. He smokes 1 to 2 g of marijuana on a daily basis. Denies cigarette use, alcohol use, other illicit drugs. - Substance History Use: Uses substance without health or social issues: Cannabis (daily for back and neck pain) - POLST Patient has POLST: No POLST Status: Full Code Meds/Allgy - Home Medications Home Medications: Ambulatory Orders Medication Instructions Recorded Confirmed Gabapentin 600 mg ORAL TID 06/21/18 07/24/20 Ibuprofen [Motrin] 600 mg ORAL TID 06/21/18 07/24/20 Prazosin [Minipress] 2 mg PO 1600 06/21/18 07/24/20 lamoTRIgine [LaMICtal] 200 mg ORAL DAILY 09/01/19 07/24/20 Acyclovir 400 mg PO Q8H 09/02/19 07/24/20 Cetirizine [ZyrTEC] 10 mg PO DAILY 09/02/19 07/24/20 Fluticasone [Flonase] 1 spray MUSHTAQ DAILY PRN 09/02/19 07/24/20 Prazosin HCl 4 mg PO QPM 09/02/19 07/24/20 methocarbamoL [Methocarbamol] 1,500 mg PO BID PRN 09/02/19 07/24/20 HYDROcodone/ACET 7.5/325 [[place] 1 each PO TID 07/24/20 07/24/20 7.5/325] - Allergies Allergies/Adverse Reactions: Allergies Allergy/AdvReac Type Severity Reaction Status Date / Time amoxicillin Allergy Anaphylaxis Verified 07/24/20 08:34 amitriptyline AdvReac Hallucinati Verified 07/24/20 08:34 ons diphenhydramine AdvReac Hallucinati Verified 07/24/20 08:34 [From Benadryl] ons haloperidol [From Haldol] AdvReac Hallucinati Verified 07/24/20 08:34 ons Review of Systems - Constitutional Constitutional: denies: Fever, Chills, Poor appetite - Cardiovascular Cariovascular: denies: Chest pain, Exertional dyspnea, Decr. exercise tolerance - Respiratory Respiratory: denies: Cough, SOB at rest, SOB with exertion - Gastrointestinal Gastrointestinal: reports: Abdominal pain. denies: Constipation, Diarrhea, Change in bowel habits, Rectal bleeding, Black stools, Bloody stools, Nausea, Vomiting, Poor appetite - Genitourinary Genitourinary: denies: Dysuria, Frequency, Hematuria - Musculoskeletal Musculoskeletal: reports: Back pain - Integumentary Integumentary: denies: Rash - Neurological Neurological: reports: Numbness. denies: General weakness, Focal weakness - Hematologic/Lymphatic Hematologic/Lymphatic: denies: Bleeding tendencies - All Other Systems All Other Systems: reports: Reviewed and negative Prior Level of Functionality: He is independent with his ADLs. He completes with a cane at baseline. Exam - Vital Signs Reviewed Vital Signs: Yes Vital Signs: Vital Signs x48h Temp Pulse Resp BP Pulse Ox 07/24/20 08:28 37.2 C 66 18 135/78 H 99 - Physical Exam General Appearance: positive: No acute distress, Alert, Other (He states his pain is 7 out of 10 but he appears comfortable.) Eyes Bilateral: positive: Normal inspection, Conjunctivae nml ENT: positive: ENT inspection nml Neck: positive: Nml inspection Respiratory: positive: No respiratory distress. negative: Wheezes, Rales Cardiovascular: positive: Regular rate & rhythm, No murmur. negative: Tachycardia, Systolic murmur Abdomen: positive: Nml bowel sounds, Tenderness (He has diffuse tenderness but this is most prominent in the left lower quadrant and suprapubic region.), Guarding. negative: No distention, Rebound, Abnml bowel sounds Skin: positive: Warm, Dry Extremities: positive: No pedal edema Neurologic/Psychiatric: positive: Oriented x3, Motor nml Conclusion/Plan - Problem List (1) Acute colitis Conclusion/Plan: CT was consistent with rectosigmoid colitis. He does an elevated white count and his pain is difficult to control in the emergency department. We will place in observation for pain control. We will place him on Dilaudid 3 mg IV every 2 hours given the prior doses of Dilaudid did not provide any relief. We will also resume his home hydrocodone but increase the frequency to every 6 hours. Continue antibiotics ciprofloxacin and Flagyl IV. Will consider general surgery consult if he does not improve. Check ESR and CRP to rule out inflammatory bowel disease. He will need a colonoscopy on outpatient basis. (2) Chronic pain Conclusion/Plan: He does have a history of chronic pain and therefore an opiate tolerance given he is on chronic hydrocodone. We will adjust his medications for acute pain. (3) PTSD (post-traumatic stress disorder) Conclusion/Plan: Stable. Continue home medications. - Lab Results Lab results reviewed: Yes Fish Bones: 07/24/20 08:40 07/24/20 08:40 - Diagnostic Imaging Results Diagnostic Imaging Results: positive: Final report reviewed Core Measures - Anticipated LOS I expect patient to be DC'd or transferred within 96 hours.: Yes - Issues Hospital Issues and Management Plan: 40-year-old male presents abdominal pain found to have rectosigmoid colitis on imaging. Pain is poorly controlled despite multiple IV doses of Dilaudid in the emergency department. We will place him in observation for antibiotics and further pain control. - DVT/VTE - Prophylaxis VTE/DVT Device ordered at admit?: Yes VTE/DVT Prophylaxis med ordered at admit?: Yes
[2020-07-24 10:53] LABS: BILIRUBIN,URINE NEGATIVE (NEGATIVE); GLUCOSE, URINE (UA) NEGATIVE (NEGATIVE); KETONES,URINE (UA) NEGATIVE (NEGATIVE); LEUKOCYTE ESTERASE, URINE NEGATIVE (NEGATIVE); NITRITE,URINE NEGATIVE (NEGATIVE); OCCULT BLOOD,URINE NEGATIVE (NEGATIVE); PROTEIN,URINE NEGATIVE (NEGATIVE); UROBILINOGEN,URINE 0.2 (NORMAL) E.U./dL (NORMAL)
[2020-07-24 10:54] LABS: CLARITY,URINE CLEAR (CLEAR)
[2020-07-24] MEDS: LACTATED RINGERS 1,000 ML IV SCH ×2 (11:10→20:27)
[2020-07-24] MEDS: SODIUM CHLORIDE FLUSH 0.9% 10 ML SYRINGE IVP PRN ×2 (11:10→15:01)
[2020-07-24] MEDS ORDERED: HYDROmorphone 1 MG/ML CARPUJECT IVP PRN (12:48)
[2020-07-24] MEDS: GABAPENTIN 300 MG CAPSULE PO SCH ×2 (13:00→21:49)
[2020-07-24] MEDS: lamoTRIgine 100 MG TABLET PO SCH (13:00)
[2020-07-24 13:12] LABS: C. PNEUMONIAE- RESP PCR PANEL NOT DETECTED
[2020-07-24] MEDS ORDERED: AZTREONAM 2 GM in SODIUM CHLORIDE 0.9% MINIBAG 100 ML IV SCH (14:00)
[2020-07-24] MEDS: HYDROmorphone 1 MG/ML CARPUJECT IVP PRN ×4 (15:01→21:54)
--- NOTE | 2020-07-24 15:29 | PHARMACY PROGRESS NOTE ---
- Best Possible Medication History Admit Date and Time: 07/24/20 1008 Processed by: Pharmacy Medication History completed: Yes Patient Interview: Completed Secondary Source(s): Pharmacy records, Insurance records As the person ultimately responsible for medication therapy, providers are able to order a medication from an existing home medication list in [facility] via the "Reconcile Routine" prior to Confirmation of that medication by field support rep. Such practice is discouraged except when the physician, in their clinical judgment, deems that a medical need exists for a medication without regard to previous use.
[2020-07-24] MEDS: SODIUM CHLORIDE FLUSH 0.9% 10 ML SYRINGE IVP SCH (15:59)
[2020-07-24] MEDS: metroNIDAZOLE 500 MG/100 ML 500 MG/100 ML BAG IV SCH (18:03)
[2020-07-24] MEDS: ONDANSETRON 4 MG/2 ML VIAL IVP PRN (18:37)
[2020-07-24] MEDS: CIPROFLOXACIN 400 MG/200 ML 400 MG/200 ML BAG IV SCH (20:24)
[2020-07-24] MEDS: PRAZOSIN 1 MG CAPSULE PO SCH (20:28)
[2020-07-25] MEDS: HYDROmorphone 1 MG/ML CARPUJECT IVP PRN ×5 (00:21→19:51)
[2020-07-25] MEDS: SODIUM CHLORIDE FLUSH 0.9% 10 ML SYRINGE IVP SCH ×3 (00:21→15:38)
[2020-07-25] MEDS: metroNIDAZOLE 500 MG/100 ML 500 MG/100 ML BAG IV SCH ×3 (02:12→18:09)
[2020-07-25 05:25] LABS: BASOPHILS % (AUTO) 0.4 %; EOSINOPHILS # (AUTO) 0.1 10^3/uL (0.0-0.7); EOSINOPHILS % (AUTO) 1.5 %; LYMPHOCYTES # (AUTO) 2.3 10^3/uL (1.5-3.5); LYMPHOCYTES % (AUTO) 27.8 %; MEAN CORPUSCULAR HEMOGLOBIN 32.4 pg (27.0-31.0); MEAN CORPUSCULAR HGB CONC 32.7 g/dL (32.0-36.0); MEAN CORPUSCULAR VOLUME 99.2 fL (80.0-94.0); MEAN PLATELET VOLUME 9.3 fL (7.4-11.4); MONOCYTES # (AUTO) 0.4 10^3/uL (0.0-1.0); MONOCYTES % (AUTO) 4.5 %; NEUTROPHILS # (AUTO) 5.5 10^3/uL (1.5-6.6); NEUTROPHILS % (AUTO) 65.4 %; PLT - PLATELET COUNT 344 10^3/uL (130-450); RED CELL DISTRIBUTION WIDTH 12.8 % (12.0-15.0); WHITE BLOOD COUNT 8.4 x10^3/uL (4.8-10.8)
[2020-07-25 05:39] LABS: CREATININE 0.6 mg/dL (0.6-1.2)
[2020-07-25] MEDS: GABAPENTIN 300 MG CAPSULE PO SCH ×3 (05:53→22:09)
[2020-07-25] MEDS: ONDANSETRON 4 MG/2 ML VIAL IVP PRN ×2 (06:19→17:11)
[2020-07-25] MEDS ORDERED: HYDROmorphone 2 MG/ML VIAL IVP STA (08:04)
[2020-07-25] MEDS: lamoTRIgine 100 MG TABLET PO SCH (08:08)
[2020-07-25] MEDS: CIPROFLOXACIN 400 MG/200 ML 400 MG/200 ML BAG IV SCH ×2 (08:10→21:11)
[2020-07-25] MEDS: LACTATED RINGERS 1,000 ML IV SCH ×3 (09:12→21:15)
[2020-07-25] MEDS: HYDROcod/ACETAM 10 MG/325 MG TABLET PO PRN ×3 (10:24→23:23)
--- NOTE | 2020-07-25 15:42 | PROVIDER PROGRESS NOTE ---
Subjective - Prog Note Date Prog Note Date: 07/25/20 - Subjective Subjective: States his pain has not really improved. States his pain was not controlled with a Dilaudid and that he became a 10 out of 10. He felt nauseous after lunch with worsening abdominal pain. Had 3-4 loose bowel movements. Current Medications - Current Medications Current Medications: Active Medications Hydrocodone Bitart/Acetaminophen (Hydrocod/Acetam 10 Mg/325 Mg Tablet) 1 tab PO Q6HR PRN PRN Reason: PAIN Last Admin: 07/25/20 10:24 Dose: 1 tab Documented by: Gabapentin (Gabapentin 300 Mg Capsule) 600 mg PO TID [facility] Last Admin: 07/25/20 14:29 Dose: 600 mg Documented by: Hydromorphone HCl (Hydromorphone 1 Mg/Ml Carpuject) 1 mg IVP Q4HR PRN PRN Reason: PAIN Last Admin: 07/25/20 15:49 Dose: 1 mg Documented by: Lactated Ringer's (Lr) 1,000 mls @ 100 mls/hr IV .Q10H [facility] Last Infusion: 07/25/20 12:53 Dose: 100 mls/hr Documented by: Metronidazole (Flagyl 500 Mg/100 Ml) 500 mg in 100 mls @ 100 mls/hr IV Q8H [facility] Last Infusion: 07/25/20 10:22 Dose: Infused Documented by: Ciprofloxacin (Cipro 400 Mg/200 Ml) 400 mg in 200 mls @ 200 mls/hr IV Q12H [facility] Last Infusion: 07/25/20 09:19 Dose: Infused Documented by: Lamotrigine (Lamotrigine 100 Mg Tablet) 200 mg PO DAILY [facility] Last Admin: 07/25/20 08:08 Dose: 200 mg Documented by: Ondansetron HCl (Ondansetron 4 Mg/2 Ml Vial) 4 mg IVP Q6HR PRN PRN Reason: Nausea / Vomiting Last Admin: 07/25/20 06:19 Dose: 4 mg Documented by: Prazosin HCl (Prazosin 1 Mg Capsule) 4 mg PO QPM [facility] Last Admin: 07/24/20 20:28 Dose: 4 mg Documented by: Sodium Chloride (Sodium Chloride Flush 0.9% 10 Ml Syringe) 10 ml IVP PRN PRN PRN Reason: NEEDED PER PROVIDER ORDERS Last Admin: 07/24/20 15:01 Dose: 10 ml Documented by: Sodium Chloride (Sodium Chloride Flush 0.9% 10 Ml Syringe) 10 ml IVP 0100,0900,1700 [facility] Last Admin: 07/25/20 15:38 Dose: Not Given Documented by: Gabapentin 600 mg ORAL TID 06/21/18 Ibuprofen [Motrin] 600 mg ORAL TID 06/21/18 Prazosin [Minipress] 2 mg PO 1600 06/21/18 lamoTRIgine [LaMICtal] 200 mg ORAL DAILY 09/01/19 Acyclovir 400 mg PO Q8H 09/02/19 Cetirizine [ZyrTEC] 10 mg PO DAILY 09/02/19 Fluticasone [Flonase] 1 spray MSUHTAQ DAILY PRN 09/02/19 Prazosin HCl 4 mg PO QPM 09/02/19 methocarbamoL [Methocarbamol] 1,500 mg PO BID PRN 09/02/19 HYDROcodone/ACET 7.5/325 [[place] 7.5/325] 1 each PO TID 07/24/20 Objective - Vital Signs/Intake & Output Reviewed Vital Signs: Yes Vital Signs: Vital Signs x48h Temp Pulse Resp BP Pulse Ox 07/25/20 15:39 36.7 C 55 L 16 143/78 H 96 07/25/20 13:00 36.8 C 62 16 126/74 95 07/25/20 09:00 36.9 C 60 16 128/76 94 Intake & Output: Intake & Output 07/22/20 07/23/20 07/24/20 07/25/20 23:59 23:59 23:59 23:59 Intake Total 3658.333 2901.667 Output Total 675 Balance 3658.333 2226.667 - Objective General Appearance: positive: No acute distress, Alert Eyes Bilateral: positive: Normal inspection, Conjunctivae nml ENT: positive: ENT inspection nml Neck: positive: Nml inspection Respiratory: positive: No respiratory distress. negative: Wheezes, Rales Cardiovascular: positive: Regular rate & rhythm, No murmur. negative: Tachycardia Abdomen: positive: Nml bowel sounds, Tenderness (Prominent in the lower quadrants.). negative: Guarding, Rebound Skin: positive: Warm, Dry Extremities: positive: No pedal edema - Lab Results Fish Bones: 07/25/20 04:13 07/25/20 04:13 Other Labs: Lab Results x24hrs 07/25/20 07/25/20 Range/Units 04:13 04:13 WBC 8.4 (4.8-10.8) x10^3/uL RBC 3.70 L (4.70-6.10) 10^6/uL Hgb 12.0 L (14.0-18.0) g/dL Hct 36.7 L (42.0-52.0) % MCV 99.2 H (80.0-94.0) fL MCH 32.4 H (27.0-31.0) pg MCHC 32.7 (32.0-36.0) g/dL RDW 12.8 (12.0-15.0) % Plt Count 344 (130-450) 10^3/uL MPV 9.3 (7.4-11.4) fL Neut # (Auto) 5.5 (1.5-6.6) 10^3/uL Lymph # (Auto) 2.3 (1.5-3.5) 10^3/uL [place] # (Auto) 0.4 (0.0-1.0) 10^3/uL Eos # (Auto) 0.1 (0.0-0.7) 10^3/uL Baso # (Auto) 0.0 (0.0-0.1) 10^3/uL Absolute Nucleated RBC 0.00 x10^3/uL Nucleated RBC % 0.0 /100WBC Sodium 142 (135-145) mmol/L Potassium 3.7 (3.5-5.0) mmol/L Chloride 108 (101-111) mmol/L Carbon Dioxide 28 (21-32) mmol/L Anion Gap 6.0 (6-13) BUN 10 (6-20) mg/dL Creatinine 0.6 (0.6-1.2) mg/dL Estimated GFR (MDRD) 148 (>89) Glucose 109 H (70-100) mg/dL Calcium 9.0 (8.5-10.3) mg/dL ABX Reporting Has patient been on IV antibiotics over the past 48 hours?: Yes Assessment/Plan - Problem List (1) Acute colitis Impression: Although he states his pain is 10 out of 10, he does appear comfortable in bed. He is tender on exam but there is no guarding or rebound tenderness. After discussion with the patient, he does not feel ready to go home today. We will continue him on Ciprofloxacin and Flagyl IV for 1 more day and transition to oral antibiotics tomorrow. We will continue with hydrocodone as needed. We will restart Dilaudid but at a lower dose of 1 mg and every 4 hours. I believe his pain is difficult to control due to chronic opiate use due to chronic pain. Continue with a diet as tolerated. (2) Chronic pain Impression: This was made treating his pain difficult. We will continue with his home dose of hydrocodone but increase the frequency. We will restart Dilaudid as mentioned above at a lower dose and increased frequency. (3) PTSD (post-traumatic stress disorder) Impression: Continue prazosin. (4) Pancreatic duct dilated Impression: This was evident on the CT of the abdomen pelvis. MRCP was recommended and this was discussed with the patient. I have recommended outpatient follow-up with his PCP to obtain this and he is agreeable to this/
[2020-07-25] MEDS: PRAZOSIN 1 MG CAPSULE PO SCH (21:16)
[2020-07-26] MEDS: HYDROmorphone 1 MG/ML CARPUJECT IVP PRN ×7 (00:11→23:08)
[2020-07-26] MEDS: metroNIDAZOLE 500 MG/100 ML 500 MG/100 ML BAG IV SCH ×3 (01:57→17:15)
[2020-07-26] MEDS: SODIUM CHLORIDE FLUSH 0.9% 10 ML SYRINGE IVP SCH ×3 (02:01→16:02)
[2020-07-26] MEDS: HYDROcod/ACETAM 10 MG/325 MG TABLET PO PRN ×4 (05:10→22:56)
[2020-07-26] MEDS: GABAPENTIN 300 MG CAPSULE PO SCH ×3 (05:35→21:18)
[2020-07-26 05:53] LABS: BASOPHILS % (AUTO) 0.5 %; EOSINOPHILS # (AUTO) 0.2 10^3/uL (0.0-0.7); EOSINOPHILS % (AUTO) 2.8 %; HGB - HEMOGLOBIN 11.7 g/dL (14.0-18.0); LYMPHOCYTES # (AUTO) 2.2 10^3/uL (1.5-3.5); LYMPHOCYTES % (AUTO) 38.2 %; MEAN CORPUSCULAR HEMOGLOBIN 32.8 pg (27.0-31.0); MEAN CORPUSCULAR HGB CONC 33.1 g/dL (32.0-36.0); MEAN CORPUSCULAR VOLUME 99.2 fL (80.0-94.0); MEAN PLATELET VOLUME 9.1 fL (7.4-11.4); MONOCYTES # (AUTO) 0.4 10^3/uL (0.0-1.0); MONOCYTES % (AUTO) 7.4 %; NEUTROPHILS # (AUTO) 2.9 10^3/uL (1.5-6.6); NEUTROPHILS % (AUTO) 50.9 %; PLT - PLATELET COUNT 312 10^3/uL (130-450); RED BLOOD COUNT 3.57 10^6/uL (4.70-6.10); RED CELL DISTRIBUTION WIDTH 12.3 % (12.0-15.0); WHITE BLOOD COUNT 5.7 x10^3/uL (4.8-10.8)
[2020-07-26 06:05] LABS: CREATININE 0.6 mg/dL (0.6-1.2)
[2020-07-26] MEDS: lamoTRIgine 100 MG TABLET PO SCH (08:39)
[2020-07-26] MEDS: CIPROFLOXACIN 400 MG/200 ML 400 MG/200 ML BAG IV SCH ×2 (08:42→21:19)
[2020-07-26] MEDS: LACTATED RINGERS 1,000 ML IV SCH ×2 (12:19→21:19)
--- NOTE | 2020-07-26 17:35 | PROVIDER PROGRESS NOTE ---
Subjective - Prog Note Date Prog Note Date: 07/26/20 - Subjective Subjective: His pain is still poorly controlled and he is requiring IV Dilaudid. He is having a little bit of diarrhea. He is concerned about his pain. Current Medications - Current Medications Current Medications: Active Medications Hydrocodone Bitart/Acetaminophen (Hydrocod/Acetam 10 Mg/325 Mg Tablet) 1 tab PO Q6HR PRN PRN Reason: PAIN Last Admin: 07/26/20 17:10 Dose: 1 tab Documented by: Gabapentin (Gabapentin 300 Mg Capsule) 600 mg PO TID [facility] Last Admin: 07/26/20 13:31 Dose: 600 mg Documented by: Hydromorphone HCl (Hydromorphone 1 Mg/Ml Carpuject) 1 mg IVP Q4HR PRN PRN Reason: PAIN Last Admin: 07/26/20 16:02 Dose: 1 mg Documented by: Lactated Ringer's (Lr) 1,000 mls @ 100 mls/hr IV .Q10H [facility] Last Admin: 07/26/20 12:19 Dose: 100 mls/hr Documented by: Metronidazole (Flagyl 500 Mg/100 Ml) 500 mg in 100 mls @ 100 mls/hr IV Q8H [facility] Last Admin: 07/26/20 17:15 Dose: 100 mls/hr Documented by: Ciprofloxacin (Cipro 400 Mg/200 Ml) 400 mg in 200 mls @ 200 mls/hr IV Q12H [facility] Last Infusion: 07/26/20 11:00 Dose: Infused Documented by: Lactobacillus Rhamnosus (Lactobacillus Rhamnosus Gg Capsule) 1 cap PO DAILY [facility] Lamotrigine (Lamotrigine 100 Mg Tablet) 200 mg PO DAILY [facility] Last Admin: 07/26/20 08:39 Dose: 200 mg Documented by: Ondansetron HCl (Ondansetron 4 Mg/2 Ml Vial) 4 mg IVP Q6HR PRN PRN Reason: Nausea / Vomiting Last Admin: 07/25/20 17:11 Dose: 4 mg Documented by: Prazosin HCl (Prazosin 1 Mg Capsule) 4 mg PO QPM [facility] Last Admin: 07/25/20 21:16 Dose: 4 mg Documented by: Sodium Chloride (Sodium Chloride Flush 0.9% 10 Ml Syringe) 10 ml IVP PRN PRN PRN Reason: NEEDED PER PROVIDER ORDERS Last Admin: 07/24/20 15:01 Dose: 10 ml Documented by: Sodium Chloride (Sodium Chloride Flush 0.9% 10 Ml Syringe) 10 ml IVP 0100,0900,1700 [facility] Last Admin: 07/26/20 16:02 Dose: 10 ml Documented by: Sodium Sulfate/Potass Sulf/Mag Sulf (Sodium/Potassium/Mag Sulfates 354 Ml Prep Kit) 177 ml PO 1800,0500 [facility] Stop: 07/27/20 05:01 Gabapentin 600 mg ORAL TID 06/21/18 Ibuprofen [Motrin] 600 mg ORAL TID 06/21/18 Prazosin [Minipress] 2 mg PO 1600 06/21/18 lamoTRIgine [LaMICtal] 200 mg ORAL DAILY 09/01/19 Acyclovir 400 mg PO Q8H 09/02/19 Cetirizine [ZyrTEC] 10 mg PO DAILY 09/02/19 Fluticasone [Flonase] 1 spray MUSHTAQ DAILY PRN 09/02/19 Prazosin HCl 4 mg PO QPM 09/02/19 methocarbamoL [Methocarbamol] 1,500 mg PO BID PRN 09/02/19 HYDROcodone/ACET 7.5/325 [[place] 7.5/325] 1 each PO TID 07/24/20 Objective - Vital Signs/Intake & Output Reviewed Vital Signs: Yes Vital Signs: Vital Signs x48h Temp Pulse Resp BP Pulse Ox 07/26/20 16:11 37.0 C 49 L 20 138/80 H 98 07/26/20 11:30 37.0 C 78 16 134/77 H 99 Intake & Output: Intake & Output 07/23/20 07/24/20 07/25/20 07/26/20 23:59 23:59 23:59 23:59 Intake Total 1948.662 7979.334 2098 Output Total 675 Balance 3968.893.9305.334 2098 - Objective General Appearance: positive: No acute distress, Alert Eyes Bilateral: positive: Normal inspection, Conjunctivae nml ENT: positive: ENT inspection nml Neck: positive: Nml inspection Respiratory: positive: No respiratory distress. negative: Wheezes, Rales Cardiovascular: positive: Regular rate & rhythm. negative: Tachycardia Abdomen: positive: No distention, Tenderness (Predominantly in the suprapubic region.). negative: Non-tender, Guarding, Rebound Skin: positive: Warm, Dry - Lab Results Fish Bones: 07/26/20 05:27 07/26/20 05:27 Other Labs: Lab Results x24hrs 07/26/20 07/26/20 07/26/20 Range/Units 09:20 05:27 05:27 WBC 5.7 (4.8-10.8) x10^3/uL RBC 3.57 L (4.70-6.10) 10^6/uL Hgb 11.7 L (14.0-18.0) g/dL Hct 35.4 L (42.0-52.0) % MCV 99.2 H (80.0-94.0) fL MCH 32.8 H (27.0-31.0) pg MCHC 33.1 (32.0-36.0) g/dL RDW 12.3 (12.0-15.0) % Plt Count 312 (130-450) 10^3/uL MPV 9.1 (7.4-11.4) fL Neut # (Auto) 2.9 (1.5-6.6) 10^3/uL Lymph # (Auto) 2.2 (1.5-3.5) 10^3/uL [place] # (Auto) 0.4 (0.0-1.0) 10^3/uL Eos # (Auto) 0.2 (0.0-0.7) 10^3/uL Baso # (Auto) 0.0 (0.0-0.1) 10^3/uL Absolute Nucleated RBC 0.00 x10^3/uL Nucleated RBC % 0.0 /100WBC Sodium 142 (135-145) mmol/L Potassium 3.5 (3.5-5.0) mmol/L Chloride 104 (101-111) mmol/L Carbon Dioxide 30 (21-32) mmol/L Anion Gap 8.0 (6-13) BUN 11 (6-20) mg/dL Creatinine 0.6 (0.6-1.2) mg/dL Estimated GFR (MDRD) 148 (>89) Glucose 137 H (70-100) mg/dL Calcium 9.0 (8.5-10.3) mg/dL Stl C. diff Tox B Gene NEGATIVE (NEGATIVE) ABX Reporting Has patient been on IV antibiotics over the past 48 hours?: Yes Assessment/Plan - Problem List (1) Acute colitis Impression: Although he appears comfortable in bed, he states his pain is 10 out of 10 and he is requiring multiple doses of IV Dilaudid. His CT that showed rectosigmoid colitis and he is not having diarrhea. We will check C. difficile and stool cultures. We will keep him on ciprofloxacin and Flagyl IV. Continue with oral hydrocodone and Dilaudid IV as needed. I spoken with general surgery and they will evaluate the patient but they are leaning towards a colonoscopy tomorrow. (2) Chronic pain Impression: This has made managing his abdominal pain difficult. Continue with the pain regimen as mentioned above. (3) PTSD (post-traumatic stress disorder) Impression: Stable. Continue prazosin. (4) Pancreatic duct dilated Impression: Evident on CT of the abdomen and pelvis. He will need outpatient MRCP and this was discussed with the patient.
[2020-07-26] MEDS: SODIUM/POTASSIUM/MAG SULFATES 354 ML PREP KIT PO SCH (18:35)
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
[2020-07-26] MEDS: PRAZOSIN 1 MG CAPSULE PO SCH (21:18)
[2020-07-27] MEDS: metroNIDAZOLE 500 MG/100 ML 500 MG/100 ML BAG IV SCH ×3 (02:00→17:29)
[2020-07-27] MEDS: HYDROmorphone 1 MG/ML CARPUJECT IVP PRN ×3 (03:04→10:37)
[2020-07-27] MEDS: SODIUM CHLORIDE FLUSH 0.9% 10 ML SYRINGE IVP SCH ×3 (03:07→16:03)
[2020-07-27] MEDS: HYDROcod/ACETAM 10 MG/325 MG TABLET PO PRN (04:36)
[2020-07-27] MEDS: ONDANSETRON 4 MG/2 ML VIAL IVP PRN (05:23)
[2020-07-27] MEDS: SODIUM/POTASSIUM/MAG SULFATES 354 ML PREP KIT PO SCH (05:29)
[2020-07-27 05:44] LABS: BASOPHILS % (AUTO) 0.7 %; EOSINOPHILS # (AUTO) 0.2 10^3/uL (0.0-0.7); EOSINOPHILS % (AUTO) 5.2 %; HGB - HEMOGLOBIN 12.5 g/dL (14.0-18.0); LYMPHOCYTES # (AUTO) 2.4 10^3/uL (1.5-3.5); LYMPHOCYTES % (AUTO) 54.3 %; MEAN CORPUSCULAR HEMOGLOBIN 32.2 pg (27.0-31.0); MEAN CORPUSCULAR HGB CONC 33.3 g/dL (32.0-36.0); MEAN CORPUSCULAR VOLUME 96.6 fL (80.0-94.0); MONOCYTES # (AUTO) 0.3 10^3/uL (0.0-1.0); MONOCYTES % (AUTO) 7.6 %; NEUTROPHILS # (AUTO) 1.4 10^3/uL (1.5-6.6); PLT - PLATELET COUNT 339 10^3/uL (130-450); RED BLOOD COUNT 3.88 10^6/uL (4.70-6.10); RED CELL DISTRIBUTION WIDTH 12.2 % (12.0-15.0); WHITE BLOOD COUNT 4.5 x10^3/uL (4.8-10.8)
[2020-07-27 05:57] LABS: CALCIUM 9.2 mg/dL (8.5-10.3); CREATININE 0.6 mg/dL (0.6-1.2)
[2020-07-27] MEDS: GABAPENTIN 300 MG CAPSULE PO SCH ×3 (06:21→21:21)
[2020-07-27] MEDS: LACTATED RINGERS 1,000 ML IV SCH ×2 (09:36→21:23)
[2020-07-27] MEDS: CIPROFLOXACIN 400 MG/200 ML 400 MG/200 ML BAG IV SCH ×2 (09:37→21:23)
[2020-07-27] MEDS: lamoTRIgine 100 MG TABLET PO SCH (09:37)
--- NOTE | 2020-07-27 10:31 | ANESTHESIA ---
Pre-Anesthesia VS, & Labs - Diagnosis Diagnosis 1. Abdominal pain 2. Proctitis, unknown etiology 3. Colitis, unknown etiology 4. Chronic pain - Procedure colonoscopy Vital Signs: Temp Pulse Resp BP Pulse Ox 36.4 C L 56 L 16 134/70 H 97 07/27/20 09:00 07/27/20 09:00 07/27/20 09:00 07/27/20 09:00 07/27/20 09:00 Height: 5 ft 11 in Weight (kg): 86.183 kg Body Mass Index: 26.4 BMI Classification: Overweight - NPO Last Fluid Intake: clear fluids at 11, sips - Lab Results Current Lab Results: Laboratory Tests 07/27/20 05:25: Sodium 140, Potassium 3.6, Chloride 104, Carbon Dioxide 27, Anion Gap 9.0, BUN 8, Creatinine 0.6, Estimated GFR (MDRD) 148, Glucose 101 H, Calcium 9.2 07/27/20 05:25: WBC 4.5 L, RBC 3.88 L, Hgb 12.5 L, Hct 37.5 L, MCV 96.6 H, MCH 32.2 H, MCHC 33.3, RDW 12.2, Plt Count 339, MPV 9.0, Neut # (Auto) 1.4 L, Lymph # (Auto) 2.4, [place] # (Auto) 0.3, Eos # (Auto) 0.2, Baso # (Auto) 0.0, Absolute Nucleated RBC 0.00, Nucleated RBC % 0.0 07/26/20 05:27: Sodium 142, Potassium 3.5, Chloride 104, Carbon Dioxide 30, Anio n Gap 8.0, BUN 11, Creatinine 0.6, Estimated GFR (MDRD) 148, Glucose 137 H, Calcium 9.0 07/26/20 05:27: WBC 5.7, RBC 3.57 L, Hgb 11.7 L, Hct 35.4 L, MCV 99.2 H, MCH 32.8 H, MCHC 33.1, RDW 12.3, Plt Count 312, MPV 9.1, Neut # (Auto) 2.9, Lymph # (Auto) 2.2, [place] # (Auto) 0.4, Eos # (Auto) 0.2, Baso # (Auto) 0.0, Absolute Nuc leated RBC 0.00, Nucleated RBC % 0.0 07/25/20 04:13: Sodium 142, Potassium 3.7, Chloride 108, Carbon Dioxide 28, Anion Gap 6.0, BUN 10, Creatinine 0.6, Estimated GFR (MDRD) 148, Glucose 109 H, Calcium 9.0 07/25/20 04:13: WBC 8.4, RBC 3.70 L, Hgb 12.0 L, Hct 36.7 L, MCV 99.2 H, MCH 32.4 H, MCHC 32.7, RDW 12.8, Plt Count 344, MPV 9.3, Neut # (Auto) 5.5, Lymph # (Auto) 2.3, [place] # (Auto) 0.4, Eos # (Auto) 0.1, Baso # (Auto) 0.0, Absolute Nucleated RBC 0.00, Nucleated RBC % 0.0 07/24/20 08:40: C-Reactive Protein 1.4 H 07/24/20 08:40: ESR 1 07/24/20 08:40: Sodium 141, Potassium 3.7, Chloride 105, Carbon Dioxide 26, Anion Gap 10.0, BUN 14, Creatinine 0.6, Estimated GFR (MDRD) 148, Glucose 100, Calcium 10.0, Total Bilirubin 0.6, AST 16, ALT 20, Alkaline Phosphatase 47, Total Protein 6.7, Albumin 4.6, Globulin 2.1, Albumin/Globulin Ratio 2.2, Lipase 36 07/24/20 08:40: WBC 15.4 H, RBC 4.27 L, Hgb 14.3, Hct 41.5 L, MCV 97.2 H, MCH 33 .5 H, MCHC 34.5, RDW 12.9, Plt Count 403, MPV 8.7, Neut # (Auto) 13.1 H, Lymph # (Auto) 1.5, [place] # (Auto) 0.6, Eos # (Auto) 0.1, Baso # (Auto) 0.0, Absolute Nucleated RBC 0.00, Nucleated RBC % 0.0 Fish Bones: 07/27/20 05:25 07/27/20 05:25 Home Medications and Allergies Home Medications: Ambulatory Orders HYDROcodone/ACET 7.5/325 [Silva 7.5/325] 1 each PO TID 07/24/20 Active Medications Hydrocodone Bitart/Acetaminophen (Hydrocod/Acetam 10 Mg/325 Mg Tablet) 1 tab PO Q6HR PRN PRN Reason: PAIN Last Admin: 07/27/20 04:36 Dose: 1 tab Documented by: Gabapentin (Gabapentin 300 Mg Capsule) 600 mg PO TID [facility] Last Admin: 07/27/20 06:21 Dose: 600 mg Documented by: Hydromorphone HCl (Hydromorphone 1 Mg/Ml Carpuject) 1 mg IVP Q4HR PRN PRN Reason: PAIN Last Admin: 07/27/20 06:57 Dose: 1 mg Documented by: Lactated Ringer's (Lr) 1,000 mls @ 100 mls/hr IV .Q10H [facility] Last Infusion: 07/27/20 09:37 Dose: 0 mls/hr Documented by: Metronidazole (Flagyl 500 Mg/100 Ml) 500 mg in 100 mls @ 100 mls/hr IV Q8H [facility] Last Infusion: 07/27/20 03:26 Dose: Infused Documented by: Ciprofloxacin (Cipro 400 Mg/200 Ml) 400 mg in 200 mls @ 200 mls/hr IV Q12H [facility] Last Admin: 07/27/20 09:37 Dose: 200 mls/hr Documented by: Lactobacillus Rhamnosus (Lactobacillus Rhamnosus Gg Capsule) 1 cap PO DAILY [facility] Lamotrigine (Lamotrigine 100 Mg Tablet) 200 mg PO DAILY [facility] Last Admin: 07/27/20 09:37 Dose: 200 mg Documented by: Ondansetron HCl (Ondansetron 4 Mg/2 Ml Vial) 4 mg IVP Q6HR PRN PRN Reason: Nausea / Vomiting Last Admin: 07/27/20 05:23 Dose: 4 mg Documented by: Prazosin HCl (Prazosin 1 Mg Capsule) 4 mg PO QPM [facility] Last Admin: 07/26/20 21:18 Dose: 4 mg Documented by: Sodium Chloride (Sodium Chloride Flush 0.9% 10 Ml Syringe) 10 ml IVP PRN PRN PRN Reason: NEEDED PER PROVIDER ORDERS Last Admin: 07/24/20 15:01 Dose: 10 ml Documented by: Sodium Chloride (Sodium Chloride Flush 0.9% 10 Ml Syringe) 10 ml IVP 0100,0900,1700 [facility] Last Admin: 07/27/20 09:37 Dose: Not Given Documented by: Gabapentin 600 mg ORAL TID 06/21/18 Ibuprofen [Motrin] 600 mg ORAL TID 06/21/18 Prazosin [Minipress] 2 mg PO 1600 06/21/18 lamoTRIgine [LaMICtal] 200 mg ORAL DAILY 09/01/19 Acyclovir 400 mg PO Q8H 09/02/19 Cetirizine [ZyrTEC] 10 mg PO DAILY 09/02/19 Fluticasone [Flonase] 1 spray MUSHTAQ DAILY PRN 09/02/19 Prazosin HCl 4 mg PO QPM 09/02/19 methocarbamoL [Methocarbamol] 1,500 mg PO BID PRN 09/02/19 HYDROcodone/ACET 7.5/325 [Sil[place] 7.5/325] 1 each PO TID 07/24/20 Allergies/Adverse Reactions: Allergies Allergy/AdvReac Type Severity Reaction Status Date / Time amoxicillin Allergy Anaphylaxis Verified 07/24/20 08:34 amitriptyline AdvReac Hallucinati Verified 07/24/20 08:34 ons diphenhydramine AdvReac Hallucinati Verified 07/24/20 08:34 [From Benadryl] ons haloperidol [From Haldol] AdvReac Hallucinati Verified 07/24/20 08:34 ons Anes History & Medical History - Anesthetic History Anesthesia Complications: reports: No previous complications Family history of Anesthesia Complications: Denies Family history of Malignant Hyperthermia: Denies - Medical History Cardiovascular: reports: None Pulmonary: reports: None, Other (SAMEERA, advised to use CPAP) Gastrointestinal: reports: None, GERD, Other (abd pain, chronic) Urinary: reports: None Neuro: reports: None Musculoskeletal: reports: Chronic back pain Endocrine/Autoimmune: reports: None Blood Disorders: reports: None Skin: reports: None Smoking Status: Current every day smoker Psychosocial: reports: Cannabis, Opioid (chronic) History of Cancer?: No - Surgical History General: Cholecystectomy, Appendectomy (August 2019, perforated), Other (left inguinal hernia repair Jun 2020) Exam General: Alert, Oriented x3, Cooperative Dental: WNL Mouth Openin Fingerbreadth Neck Mobility: Normal Mallampati classification: I Thyromental Distance: greater than 6 cm Respiratory: Lungs clear, Normal breath sounds, No respiratory distress Cardiovascular: Regular rate Neurological: Normal speech Mental/Cognitive Status: Alert/Oriented X3, Normal for patient Cognitive Status: Within normal limits Plan Anesthesia Type: MAC Consent for Procedure(s) Verified and Reviewed: Yes Code Status: Attempt Resuscitation ASA classification: 2-Mild systemic disease Is this case an emergency?: No
[2020-07-27] MEDS: SODIUM CHLORIDE FLUSH 0.9% 10 ML SYRINGE IVP PRN ×2 (10:37→11:50)
[2020-07-27] MEDS ORDERED: HYDROmorphone 0.5 MG/0.5 ML SYRINGE IVP STA ×2 (11:30→15:08)
[2020-07-27] MEDS ORDERED: HYDROmorphone 1 MG/ML CARPUJECT IVP SCH (11:45)
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
[2020-07-27] MEDS: HYDROmorphone 2 MG/ML VIAL IVP PRN ×3 (16:03→23:48)
[2020-07-27] MEDS: LACTOBACILLUS RHAMNOSUS GG CAPSULE PO SCH (17:28)
[2020-07-27] MEDS ORDERED: LORazepam 2 MG/ML VIAL IVP PRN (17:44)
[2020-07-27] MEDS: PRAZOSIN 1 MG CAPSULE PO SCH (21:21)
[2020-07-28] MEDS: SODIUM CHLORIDE FLUSH 0.9% 10 ML SYRINGE IVP SCH ×3 (01:02→17:32)
[2020-07-28] MEDS: metroNIDAZOLE 500 MG/100 ML 500 MG/100 ML BAG IV SCH ×3 (01:54→19:37)
[2020-07-28] MEDS: HYDROmorphone 2 MG/ML VIAL IVP PRN ×5 (04:20→22:57)
[2020-07-28 05:43] LABS: BASOPHILS % (AUTO) 0.5 %; EOSINOPHILS # (AUTO) 0.3 10^3/uL (0.0-0.7); EOSINOPHILS % (AUTO) 3.4 %; HGB - HEMOGLOBIN 12.8 g/dL (14.0-18.0); LYMPHOCYTES # (AUTO) 2.7 10^3/uL (1.5-3.5); LYMPHOCYTES % (AUTO) 31.4 %; MEAN CORPUSCULAR HEMOGLOBIN 32.2 pg (27.0-31.0); MEAN CORPUSCULAR HGB CONC 33.5 g/dL (32.0-36.0); MEAN PLATELET VOLUME 8.9 fL (7.4-11.4); MONOCYTES # (AUTO) 0.5 10^3/uL (0.0-1.0); MONOCYTES % (AUTO) 5.5 %; NEUTROPHILS % (AUTO) 58.8 %; PLT - PLATELET COUNT 358 10^3/uL (130-450); RED BLOOD COUNT 3.98 10^6/uL (4.70-6.10); WHITE BLOOD COUNT 8.5 x10^3/uL (4.8-10.8)
[2020-07-28 05:54] LABS: CREATININE 0.5 mg/dL (0.6-1.2)
[2020-07-28] MEDS: GABAPENTIN 300 MG CAPSULE PO SCH ×3 (07:13→21:36)
[2020-07-28] MEDS: lamoTRIgine 100 MG TABLET PO SCH (08:18)
[2020-07-28] MEDS: LACTOBACILLUS RHAMNOSUS GG CAPSULE PO SCH (08:19)
[2020-07-28] MEDS: CIPROFLOXACIN 400 MG/200 ML 400 MG/200 ML BAG IV SCH ×2 (09:00→21:36)
[2020-07-28] MEDS: LACTATED RINGERS 1,000 ML IV SCH ×3 (10:18→15:30)
[2020-07-28] MEDS ORDERED: LORazepam 2 MG/ML VIAL IVP PRN (10:52)
[2020-07-28] MEDS ORDERED: MIDAZOLAM 2 MG/2 ML VIAL ONE (11:57)
[2020-07-28] MEDS ORDERED: PROPOFOL 200 MG/20 ML VIAL IVP ONE ×2 (11:58→12:45)
[2020-07-28] MEDS ORDERED: KETAMINE 500 MG/10 ML VIAL ONE (12:16)
[2020-07-28] MEDS: SODIUM CHLORIDE FLUSH 0.9% 10 ML SYRINGE IVP PRN (13:31)
--- NOTE | 2020-07-28 14:17 | PROVIDER PROGRESS NOTE ---
Progress Note Patient status post colonoscopy for evaluation of abdominal pain and colitis on imaging; presentation with CT imaging concerning for rectosigmoid inflammatory changes. Findings as follows: 1. Ileocecal valve intubated and easily traversed, no terminal ileitis, random biopsies taken, no stricturing or other pathologic changes. 2. Cecum identified and photographed for both the ileocecal valve and appendiceal orifice. No cecitis. 3. No a sending transverse or descending colitis or sigmoid colitis in spite of CT imaging. Random biopsies taken from throughout the colon up into the rectosigmoid junction. 4. Rectosigmoid without any gross colitis as well as proctitis. Independent biopsies taken of this area. 5. Retroflexion with internal hemorrhoids. 6. No masses or polyps appreciated throughout however prep could only rule out lesions greater than 6 mm Plan going forward is as follows: 1. Advance diet to low fiber following MRCP 2. Await pathology; pending MRCP as well 3. Follow-up in stool studies 4. May consider course of Flagyl outpatient however no martha inflammation at this time and would defer given the risk of antibiotic associated diarrhea amongst others
--- NOTE | 2020-07-28 17:02 | ANESTHESIA POST OP EVALUATION ---
Anesthesia Post Eval - Post Anesthesia Eval Vitals: Last Vital Signs Temp 36.9 C 07/28/20 16:20 Pulse 50 L 07/28/20 16:20 Resp 16 07/28/20 16:20 BP 124/76 07/28/20 16:20 Pulse Ox 97 07/28/20 16:20 CV Function Including HR & BP: positive: Stable Pain Control: positive: Satisfactory Nausea & Vomiting: positive: Negative Mental Status: positive: Baseline Respiratory Status: Airway Patent Hydration Status: Satisfactory Anesthesia Complications: positive: None
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
[2020-07-28] MEDS ORDERED: HYDROmorphone 2 MG/ML VIAL IVP ONE (20:00)
[2020-07-28] MEDS: PRAZOSIN 1 MG CAPSULE PO SCH (21:35)
[2020-07-28] MEDS ORDERED: LIDOCAINE PATCH 5% TOP STA (21:45)
[2020-07-29] MEDS: HYDROmorphone 2 MG/ML VIAL IVP PRN ×7 (02:01→21:12)
[2020-07-29] MEDS: metroNIDAZOLE 500 MG/100 ML 500 MG/100 ML BAG IV SCH ×3 (02:01→18:21)
[2020-07-29] MEDS: SODIUM CHLORIDE FLUSH 0.9% 10 ML SYRINGE IVP SCH ×3 (02:12→18:22)
[2020-07-29 04:57] LABS: BASOPHILS # (AUTO) 0.1 10^3/uL (0.0-0.1); BASOPHILS % (AUTO) 0.5 %; EOSINOPHILS # (AUTO) 0.3 10^3/uL (0.0-0.7); EOSINOPHILS % (AUTO) 2.9 %; HGB - HEMOGLOBIN 12.8 g/dL (14.0-18.0); LYMPHOCYTES # (AUTO) 2.7 10^3/uL (1.5-3.5); LYMPHOCYTES % (AUTO) 28.2 %; MEAN CORPUSCULAR HEMOGLOBIN 32.2 pg (27.0-31.0); MEAN CORPUSCULAR VOLUME 97.7 fL (80.0-94.0); MEAN PLATELET VOLUME 9.1 fL (7.4-11.4); MONOCYTES # (AUTO) 0.5 10^3/uL (0.0-1.0); MONOCYTES % (AUTO) 5.3 %; NEUTROPHILS # (AUTO) 6.1 10^3/uL (1.5-6.6); NEUTROPHILS % (AUTO) 62.7 %; PLT - PLATELET COUNT 393 10^3/uL (130-450); RED BLOOD COUNT 3.97 10^6/uL (4.70-6.10); RED CELL DISTRIBUTION WIDTH 12.1 % (12.0-15.0); WHITE BLOOD COUNT 9.7 x10^3/uL (4.8-10.8)
[2020-07-29 05:09] LABS: CALCIUM 9.8 mg/dL (8.5-10.3); CREATININE 0.7 mg/dL (0.6-1.2)
[2020-07-29] MEDS: GABAPENTIN 300 MG CAPSULE PO SCH ×3 (05:15→21:01)
[2020-07-29] MEDS: LACTATED RINGERS 1,000 ML IV SCH ×2 (08:46→10:26)
[2020-07-29] MEDS: CIPROFLOXACIN 400 MG/200 ML 400 MG/200 ML BAG IV SCH ×2 (08:47→21:01)
[2020-07-29] MEDS: LACTOBACILLUS RHAMNOSUS GG CAPSULE PO SCH (08:53)
[2020-07-29] MEDS: lamoTRIgine 100 MG TABLET PO SCH (08:53)
[2020-07-29] MEDS ORDERED: LIDOCAINE PATCH 5% TOP PRN (11:51)
--- NOTE | 2020-07-29 12:00 | MRI Report ---
PROCEDURE: Abdomen W/O INDICATIONS: Abdominal pain. Mildly dilated pancreatic duct on prior CT. TECHNIQUE: Coronal T2, axial T1 in- and [id number]; axial breath-hold T2 FSE. Oblique coronal and axial thin- slice T2, radial thick-slab T2 centered on the extrahepatic bile ducts. COMPARISON: Concurrent MRI of the pelvis. CT abdomen pelvis 07/24/2020. FINDINGS: Image quality: Evaluation is limited by motion artifact. Lung bases: No basal pleural effusions. Heart size is mildly enlarged. Biliary ducts and panreas: The gallbladder appears within normal limits without gallstones. No intra or extra hepatic biliary ductal dilatation. No definite common duct stones identified, with evaluatio n limited by motion artifact. The pancreatic duct demonstrates borderline dilatation, measuring 3 to 4 mm. no discrete pancreatic mass identified in the absence of intravenous contrast. No peripancreati c edema or fluid collections. Solid organs: Noncontrast evaluation of the liver demonstrates no discrete mass lesion. The spleen is normal in size. No adrenal nodules. Kidneys demonstrate no hydronephrosis. Nodes and vessels: No retroperitoneal or mesenteric adenopathy by size criteria. Aorta and inferior vena cava are normal in size. Bowel and peritoneum: Visualized bowel loops appear normal in caliber. The thickened segment of sigm oid colon is not included on the current study. There is trace free fluid within the visualized abdom en. Bones and soft tissues: No ventral hernias. Bone marrow is normal in overall signal. IMPRESSION: 1. No biliary ductal dilatation or definite choledocholithiasis. 2. No evidence for cholelithiasis or cholecystitis. 3. Borderline dilatation of the pancreatic duct which measures 3-4 mm. No discrete pancreatic mass id entified on noncontrast evaluation. No MRI evidence of acute pancreatitis. The findings are nonspecif ic and the differential includes a nonvisualized small obstructing mass or a main duct IPMN. Recommen d correlation clinically and if indicated further evaluation may be performed with a pancreatic clemente col contrast-enhanced study. Reviewed by: Denys Agrawal MD on 07/29/2020 11:59 AM PST Approved by: Denys Agrawal MD on 07/29/2020 11:59 AM PST Station ID: [id number]
--- NOTE | 2020-07-29 12:05 | MRI Report ---
PROCEDURE: Pelvis W/O INDICATIONS: Lour abdominal pain TECHNIQUE: Coronal STIR, sagittal T2, axial T2 with fat saturation, axial T1, and coronal T1 performed through t he pelvis. COMPARISON: Concurrent MRI of the abdomen. CT abdomen pelvis 07/24/2020. FINDINGS: Image quality: There is motion artifact limiting evaluation. Bowel and peritoneum: There is segmental wall thickening of the sigmoid colon redemonstrated, as see n on the recent CT. No definite evidence of associated bowel obstruction. Pericolonic edema is demons trated in the pelvis as well as a small to moderate amount of pelvic free fluid. No discrete fluid co llections to suggest an abscess, with evaluation limited in the absence of intravenous contrast. Genitourinary system: Bladder wall is normal in thickness. Distal ureters are non distended. Nodes and vessels: No pathologic pelvic or inguinal adenopathy by size criteria. Iliac vessels are normal in caliber. Soft tissues: No inguinal hernias. Bones: Marrow is normal in overall signal. IMPRESSION: 1. Segmental colitis of the sigmoid colon redemonstrated, likely infectious or inflammatory in etiolo gy. 2. Small to moderate amount of free fluid in the pelvis. No definite abscess collection identified. Reviewed by: Denys Agrawal MD on 07/29/2020 12:04 PM PST Approved by: Denys Agrawal MD on 07/29/2020 12:04 PM PST Station ID: [id number]
[2020-07-29] MEDS: DULoxetine 30 MG CAPSULE PO SCH (13:53)
[2020-07-29] MEDS: methocarbamoL 500 MG TABLET PO PRN (17:43)
[2020-07-29] MEDS: ONDANSETRON 4 MG/2 ML VIAL IVP PRN (18:14)
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
[2020-07-29] MEDS: PRAZOSIN 1 MG CAPSULE PO SCH (21:00)
[2020-07-30] MEDS: SODIUM CHLORIDE FLUSH 0.9% 10 ML SYRINGE IVP SCH ×3 (00:33→16:13)
[2020-07-30] MEDS: HYDROmorphone 2 MG/ML VIAL IVP PRN ×5 (00:34→13:36)
[2020-07-30] MEDS: LACTATED RINGERS 1,000 ML IV SCH ×2 (01:50→16:13)
[2020-07-30] MEDS: metroNIDAZOLE 500 MG/100 ML 500 MG/100 ML BAG IV SCH ×3 (01:50→18:01)
[2020-07-30] MEDS: GABAPENTIN 300 MG CAPSULE PO SCH ×3 (06:14→21:30)
[2020-07-30] MEDS: LACTOBACILLUS RHAMNOSUS GG CAPSULE PO SCH (08:06)
[2020-07-30] MEDS: DULoxetine 30 MG CAPSULE PO SCH (08:07)
[2020-07-30] MEDS: lamoTRIgine 100 MG TABLET PO SCH (08:07)
[2020-07-30] MEDS: CIPROFLOXACIN 400 MG/200 ML 400 MG/200 ML BAG IV SCH ×2 (08:13→20:31)
[2020-07-30] MEDS ORDERED: HYDROmorphone 1 MG/ML CARPUJECT IVP PRN (14:38)
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
[2020-07-30] MEDS: HYDROcodone/ACETAM 7.5 MG/325 MG 15 ML UDC PO SCH ×2 (16:13→21:30)
[2020-07-30] MEDS: HYDROmorphone 2 MG TABLET PO PRN ×2 (19:12→22:04)
[2020-07-30] MEDS: methocarbamoL 500 MG TABLET PO PRN (19:12)
[2020-07-30] MEDS: PRAZOSIN 1 MG CAPSULE PO SCH (21:30)
[2020-07-31] MEDS: SODIUM CHLORIDE FLUSH 0.9% 10 ML SYRINGE IVP SCH ×2 (00:15→09:29)
[2020-07-31] MEDS: HYDROmorphone 2 MG TABLET PO PRN ×4 (01:17→11:23)
[2020-07-31] MEDS: metroNIDAZOLE 500 MG/100 ML 500 MG/100 ML BAG IV SCH ×2 (01:18→11:48)
[2020-07-31] MEDS: LACTATED RINGERS 1,000 ML IV SCH (03:39)
[2020-07-31] MEDS: methocarbamoL 500 MG TABLET PO PRN (04:33)
[2020-07-31 05:26] LABS: BASOPHILS % (AUTO) 0.7 %; EOSINOPHILS # (AUTO) 0.3 10^3/uL (0.0-0.7); EOSINOPHILS % (AUTO) 4.4 %; HGB - HEMOGLOBIN 14.1 g/dL (14.0-18.0); LYMPHOCYTES # (AUTO) 2.5 10^3/uL (1.5-3.5); LYMPHOCYTES % (AUTO) 40.9 %; MEAN CORPUSCULAR HGB CONC 33.2 g/dL (32.0-36.0); MEAN CORPUSCULAR VOLUME 96.6 fL (80.0-94.0); MONOCYTES # (AUTO) 0.4 10^3/uL (0.0-1.0); MONOCYTES % (AUTO) 6.7 %; NEUTROPHILS # (AUTO) 2.9 10^3/uL (1.5-6.6); PLT - PLATELET COUNT 409 10^3/uL (130-450); RED CELL DISTRIBUTION WIDTH 11.9 % (12.0-15.0); WHITE BLOOD COUNT 6.1 x10^3/uL (4.8-10.8)
[2020-07-31 05:33] LABS: CREATININE 0.6 mg/dL (0.6-1.2)
[2020-07-31] MEDS: GABAPENTIN 300 MG CAPSULE PO SCH (06:06)
[2020-07-31] MEDS: HYDROcodone/ACETAM 7.5 MG/325 MG 15 ML UDC PO SCH (06:07)
--- NOTE | 2020-07-31 08:25 | Discharge Plan ---
Discharge Plan Problem Reviewed?: Yes Disposition: Home, Self Care Condition: Fair Prescriptions: HYDROmorphone [Dilaudid] 2 mg PO Q3HR PRN #32 tablet PRN Reason: Severe Pain Lactobacillus Rhamnosus GG [Culturelle] 1 cap PO DAILY #10 capsule metroNIDAZOLE [Flagyl] 500 mg PO BID 10 Days #40 tablet Lidocaine Patch 5% [Lidoderm Patch] 1 patch TOP DAILY PRN #30 patch PRN Reason: Pain methocarbamoL [Methocarbamol] 1,500 mg PO BID PRN #120 tab PRN Reason: Spasms HYDROcodone/ACET 7.5/325 [[place] 7.5/325] 1 each PO TID #21 tab Diet: Soft Activity Restrictions: Activity as Tolerated Shower Restrictions: No Driving Restrictions: No Health Concerns: You were admitted to the hospital to manage procto-sigmoid colitis. You received IV antibiotics, IV fluids and strong pain medications. You underwent a colonoscopy. The biopsies of your colon showed no malignancy. You are being discharged to take 10 more days of antibiotic (Flagyl) with a probiotic (Culturell) for healthy gut neelima. Please eat a soft diet that is easy to digest (low fiber). Advance your diet as tolerated. Several days of narcotic pain medication (oral Dilaudid) has also been prescribed. Wean this down as tolerated. Resume all your prehospital medications. Some have been refilled at your request. There is also a new prescription for a topical daily Lidocaine patch to use for your neck and back pain. All prescriptions were electronically sent to your [facility] pharmacy in [place]. Plan of Treatment: As above. Care Goals: Improvement in symptoms and stabilization are the goals. Assessment: The patient understands and is agreeable with the plan. Additional Instructions or Follow Up instructions: If you have new or worsening symptoms, call your primary care provider for advice or come to the ER. No Smoking: If you smoke, Please STOP! Call for help. Follow-up with: ANDERSON KELLEY MD [Primary Care Provider] -
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
[2020-07-31] MEDS: DULoxetine 30 MG CAPSULE PO SCH (09:27)
[2020-07-31] MEDS: LACTOBACILLUS RHAMNOSUS GG CAPSULE PO SCH (09:27)
[2020-07-31] MEDS: lamoTRIgine 100 MG TABLET PO SCH (09:27)
[2020-07-31] MEDS: CIPROFLOXACIN 400 MG/200 ML 400 MG/200 ML BAG IV SCH (10:36)
--- NOTE | 2020-07-31 11:50 | PROVIDER PROGRESS NOTE ---
Progress Note 40-year-old male presenting with CT scan, see below, with rectosigmoid colitis. Abdominal pain. Underwent colonoscopy as per below. Imaging as per below as well: Final pathology with no significant changes histopathologically from either the terminal ileum, colon or rectosigmoid in spite of imaging. Symptoms has essentially improved and near resolved. Afebrile hemodynamically expectable Abdomen soft nontender nondistended no rebound no guarding Assessments: At this time stool studies have been within normal limits. We are still waiting on stool cultures however fecal leukocytes and C. difficile were both negative. This could be simply an idiopathic colitis. Absent pathology for acute or chronic inflammatory changes the risk of associated missed inflammatory bowel disease (Crohn's disease/ulcerative colitis) is exceedingly low. He is too young to be at any significant risk for ischemic colitis, has no arrhythmia to which an embolic event could be attributed, and no associated hematochezia that we would see in this setting. Moreover, in this region is unlikely source because of robust the blood supply, moreover the inferior mesenteric artery is might widely patent. Recommend probiotics, continued Flagyl pending final stool studies, and if he still has persistent changes to consider gastroenterology for capsule endoscopy amongst others however I believe that his work-up is essentially complete and without any other clear etiology besides gastroenteritis/idiopathic colitis. Initial findings of ductal dilatation within the pancreas was mild however, without any worrisome features on MRCP, tjhus if there is still concern endoscopic ultrasound could also rule this out however I believe there is no acute indication at this time. Please note that voice recognition software was used to transcribe this note and inadvertent errors might persist in spite of review and editing. I am obliged to you for your attention. I am thankful to you for allowing me to participate with you in this care of this patient. Colonoscopy: 1. Ileocecal valve intubated and easily traversed, no terminal ileitis, random biopsies taken, no stricturing or other pathologic changes. 2. Cecum identified and photographed for both the ileocecal valve and appendiceal orifice. No cecitis. 3. No a sending transverse or descending colitis or sigmoid colitis in spite of CT imaging. Random biopsies taken from throughout the colon up into the rectosigmoid junction. 4. Rectosigmoid without any gross colitis as well as proctitis. Independent biopsies taken of this area. 5. Retroflexion with internal hemorrhoids. 6. No masses or polyps appreciated throughout however prep could only rule out lesions greater than [address] abdomen pelvis impression: Findings most consistent with rectosigmoid colitis. There is diffuse wall thickening, surrounding inflammation, and a small amount of adjacent ascites. No abscess formation. Mild dilation of the pancreatic duct. Recommend nonemergent MRI evaluation to include MRCP. MRCP: 1. No biliary ductal dilatation no definitive choledocholithiasis. 2. No evidence for cholelithiasis or cholecystitis 3. Borderline dilation of the pancreatic duct which measures 3 to 4 mm. No discrete pancreatic mass. Identified on noncontrast evaluation. No MRI evidence of acute pancreatitis. The findings are nonspecific and the differential includes a nonvisualized small obstructing mass or main duct IPMN. Recommend correlation clinically and if indicated further may be performed with a pancreatic protocol contrast-enhanced study. MRI pelvis: 1. Segmental colitis of the sigmoid colon were just demonstrated, likely infectious or inflammatory in etiology. 2. Small to moderate amount of free fluid in the pelvis no definitive abscess connection identified. Pathology 1. Terminal ileum no diagnostic alterations, negative for inflammation granulomas or dysplasia. 2. Random colon biopsy: Architecturally intact uninflamed colonic mucosa negative for microscopic colitis. 3. Rectosigmoid colon architecturally intact uninflamed colonic mucosa with no alterations, negative for microscopic colitis.
[2020-07-31 13:03] VITALS: BP 129/80
== END 2020-07-31 13:15 | disposition home or self-care (01) | DRG 395 ==
LOC: ED 08:17 → MS2 10:08 → OBSVTOIN 07-27 12:20
PROVIDERS: ADMIT Internal Medicine; ATTEND Internal Medicine
PROC: 0DBH8ZX Excision of Cecum, Via Natural or Artificial Opening Endoscopic, Diagnostic (ICD-10-PCS; principal; 2020-07-27)
PROC: 0DBE8ZX Excision of Large Intestine, Via Natural or Artificial Opening Endoscopic, Diagnostic (ICD-10-PCS; 2020-07-27)
PROC: 0DBP8ZX Excision of Rectum, Via Natural or Artificial Opening Endoscopic, Diagnostic (ICD-10-PCS; 2020-07-27)
PROC: 0DBC8ZX Excision of Ileocecal Valve, Via Natural or Artificial Opening Endoscopic, Diagnostic (ICD-10-PCS; 2020-07-27)
DX: K63.89 Other specified diseases of intestine (principal); K86.89 Other specified diseases of pancreas; D50.0 Iron deficiency anemia secondary to blood loss (chronic); G89.18 Other acute postprocedural pain; G89.29 Other chronic pain; M54.2 Cervicalgia; M51.36 Other intervertebral disc degeneration, lumbar region; F41.9 Anxiety disorder, unspecified; F43.10 Post-traumatic stress disorder, unspecified; G47.00 Insomnia, unspecified; G47.33 Obstructive sleep apnea (adult) (pediatric); K64.8 Other hemorrhoids; E66.3 Overweight; Z68.26 Body mass index [BMI] 26.0-26.9, adult; Z98.890 Other specified postprocedural states; Z79.891 Long term (current) use of opiate analgesic; Z79.1 Long term (current) use of non-steroidal anti-inflammatories (NSAID); Z79.899 Other long term (current) drug therapy
CPT/HCPCS: 0202U; 36415; 72195; 74177; 74181; 80048; 80053; 81003; 81599; 83630; 83690; 85025; 85651; 86140; 87493; 96365; 96366; 96367; 96368; 96375; 96376; 99284; 99285; A9270; J1170; J7120; Q9967; 81001; 87045; 87046; 87086

== ENCOUNTER 2020-08-23 10:04 | Emergency (ER) | payer MEDICAID ==
--- NOTE | 2020-08-23 10:23 | ED Physician Documentation ---
PD HPI ABD PAIN - Stated complaint Stated Complaint: MALE - Chief complaint Chief Complaint: Abd Pain - History obtained from History obtained from: Patient - History of Present Illness Timing - onset: How many days ago (3) Timing - duration: Days (3) Timing - details: Gradual onset, Still present, Waxing and waning Quality: Cramping, Aching, Pain Location: Periumbilical, Suprapubic Radiation: Other (right and left inguinal area) Associated symptoms: Nausea. No: Fever, Vomiting, Diarrhea, Constipation, Dysuria, Loss of appetite Similar symptoms before: Has not had sx before Recently seen: Emergency Dept, Admitted (for rectosigmoid colitis and in hospital 5 days, with abx and pain meds. Had colonoscopy at end of that which appeared normal. Biopsies did not show any inflammatory changes. so colitis seemed to have improved.) Review of Systems Constitutional: denies: Fever, Chills Nose: denies: Rhinorrhea / runny nose, Congestion Throat: denies: Sore throat Respiratory: denies: Cough GI: reports: Abdominal Pain, Nausea. denies: Abdominal Swelling, Vomiting, Diarrhea : denies: Dysuria, Frequency, Discharge Skin: denies: Rash PD PAST MEDICAL HISTORY - Past Medical History Cardiovascular: None Respiratory: None, Other (SAMEERA, advised to use CPAP) Neuro: None Endocrine/Autoimmune: None GI: None, GERD, Other (abd pain, chronic) : None HEENT: None Psych: Post traumatic stress disorder Musculoskeletal: Chronic back pain Derm: None - Past Surgical History Past Surgical History: No General: Cholecystectomy, Appendectomy (August 2019, perforated), Other (left inguinal hernia repair Jun 2020) - Present Medications Home Medications: Ambulatory Orders Medication Instructions Recorded Confirmed Gabapentin 600 mg ORAL TID 06/21/18 07/24/20 Ibuprofen [Motrin] 600 mg ORAL TID 06/21/18 07/24/20 Prazosin [Minipress] 2 mg PO 1600 06/21/18 07/24/20 lamoTRIgine [LaMICtal] 200 mg ORAL DAILY 09/01/19 07/24/20 Acyclovir 400 mg PO Q8H 09/02/19 07/24/20 Cetirizine [ZyrTEC] 10 mg PO DAILY 09/02/19 07/24/20 Fluticasone [Flonase] 1 spray MUSHTAQ DAILY PRN 09/02/19 07/24/20 Prazosin HCl 4 mg PO QPM 09/02/19 07/24/20 HYDROcodone/ACET 7.5/325 [[place] 1 each PO TID #21 tab 07/31/20 7.5/325] HYDROmorphone [Dilaudid] 2 mg PO Q3HR PRN #32 tablet 07/31/20 Lactobacillus Rhamnosus GG 1 cap PO DAILY #10 capsule 07/31/20 [Culturelle] Lidocaine Patch 5% [Lidoderm Patch] 1 patch TOP DAILY PRN #30 patch 07/31/20 methocarbamoL [Methocarbamol] 1,500 mg PO BID PRN #120 tab 07/31/20 metroNIDAZOLE [Flagyl] 500 mg PO BID 10 Days #40 tablet 07/31/20 Docusate Sodium 100Mg Capsule 100 mg PO DAILY #20 08/23/20 [Colace 100Mg Capsule] Naproxen [EC-Naproxen] 500 mg PO BID #20 08/23/20 Oxycodone HCl/Acetaminophen 1 each PO Q6H PRN #18 tab 08/23/20 [Percocet 5-325 mg Tablet] - Allergies Allergies/Adverse Reactions: Allergies Allergy/AdvReac Type Severity Reaction Status Date / Time amoxicillin Allergy Anaphylaxis Verified 07/24/20 08:34 amitriptyline AdvReac Hallucinati Verified 07/24/20 08:34 ons diphenhydramine AdvReac Hallucinati Verified 07/24/20 08:34 [From Benadryl] ons haloperidol [From Haldol] AdvReac Hallucinati Verified 07/24/20 08:34 ons - Social History Does the pt smoke?: No Smoking Status: Current every day smoker Does the pt drink ETOH?: No Does the pt have substance abuse?: No - Immunizations Immunizations are current?: Yes - POLST Patient has POLST: No POLST Status: Full Code PD ED PE NORMAL - Vitals Vital signs reviewed: Yes - General General: Alert and oriented X 3, Well developed/nourished - Neck Neck: Supple, no meningeal sign, No adenopathy, No JVD - Cardiac Cardiac: RRR, No murmur, No rub - Respiratory Respiratory: Clear bilaterally - Abdomen Abdomen: Normal bowel sounds, Soft, Non distended, No organomegaly, Other (some tenderness bilateral inguinal area without masses nor lumps. No noted hernias nor adenopathy. ) - Back Back: No CVA TTP - Derm Derm: Normal color, Warm and dry - Neuro Neuro: Alert and oriented X 3, No motor deficit, Normal speech - Psych Psych: No: Normal affect (anxious) Results - Vitals Vitals: Vital Signs - 24 hr 08/23/20 08/23/20 08/23/20 10:08 11:05 12:04 Temperature 36.9 C Heart Rate 65 70 48 L Respiratory 14 16 18 Rate Blood Pressure 116/70 114/72 117/75 O2 Saturation 98 97 100 08/23/20 13:56 Temperature Heart Rate 59 L Respiratory 16 Rate Blood Pressure 114/82 H O2 Saturation 98 Oxygen O2 Source Room air - Labs Labs: Laboratory Tests 08/23/20 08/23/20 08/23/20 11:00 11:00 12:07 WBC 7.3 RBC 4.04 L Hgb 13.2 L Hct 38.8 L MCV 96.0 H MCH 32.7 H MCHC 34.0 RDW 12.1 Plt Count 336 MPV 8.4 Neut # (Auto) 4.0 Lymph # (Auto) 2.7 Stewart # (Auto) 0.3 Eos # (Auto) 0.3 Baso # (Auto) 0.0 Absolute Nucleated RBC 0.00 Nucleated RBC % 0.0 Sodium 138 Potassium 3.9 Chloride 105 Carbon Dioxide 25 Anion Gap 8.0 BUN 16 Creatinine 0.6 Estimated GFR (MDRD) 148 Glucose 103 H Calcium 9.2 Urine Color YELLOW Urine Clarity CLEAR Urine pH 6.5 Ur Specific Lillie 1.010 Urine Protein NEGATIVE Urine Glucose (UA) NEGATIVE Urine Ketones NEGATIVE Urine Occult Blood NEGATIVE Urine Nitrite NEGATIVE Urine Bilirubin NEGATIVE Urine Urobilinogen 0.2 (NORMAL) Ur Leukocyte Esterase NEGATIVE Ur Microscopic Review NOT INDICATED Urine Culture Comments NOT INDICATED PD MEDICAL DECISION MAKING - ED course Complexity details: reviewed results (U/S scrotal without acute painful abnormality (there was small varicocele and hydrocele).), re-evaluated patient, considered differential, d/w patient Departure - Departure Disposition: Home, Self Care Clinical Impression: Inguinal pain of both sides Condition: Stable Record reviewed to determine appropriate education?: Yes Instructions: ED Abdominal Pain Unkn Cause [facility]: [facility] [Provider Group] Prescriptions: Docusate Sodium 100Mg Capsule [Colace 100Mg Capsule] 100 mg PO DAILY #20 Naproxen [EC-Naproxen] 500 mg PO BID #20 Oxycodone HCl/Acetaminophen [Percocet 5-325 mg Tablet] 1 each PO Q6H PRN #18 tab PRN Reason: pain Comments: Activity as tolerated based on pain and discomfort. Anti-inflammatory such as naproxen 500 mg twice daily for the next 7 to 10 days with food. Continue your MiraLAX daily and add docusate to ensure good stool softening. Add Tylenol every 4-6 hours or oxycodone if needed for worse pain. Follow-up with your primary care or general surgery if not improving well over the next week. Discharge Date/Time: 08/23/20 14:00
[2020-08-23] MEDS ORDERED: KETOROLAC 30 MG/ML VIAL IVP STA (10:45)
[2020-08-23] MEDS ORDERED: HYDROmorphone 1 MG/ML CARPUJECT IVP STA ×2 (10:45→13:00)
[2020-08-23 11:04] LABS: BASOPHILS % (AUTO) 0.5 %; EOSINOPHILS # (AUTO) 0.3 10^3/uL (0.0-0.7); EOSINOPHILS % (AUTO) 3.4 %; HGB - HEMOGLOBIN 13.2 g/dL (14.0-18.0); LYMPHOCYTES # (AUTO) 2.7 10^3/uL (1.5-3.5); LYMPHOCYTES % (AUTO) 37.4 %; MEAN CORPUSCULAR HEMOGLOBIN 32.7 pg (27.0-31.0); MEAN PLATELET VOLUME 8.4 fL (7.4-11.4); MONOCYTES # (AUTO) 0.3 10^3/uL (0.0-1.0); MONOCYTES % (AUTO) 4.5 %; NEUTROPHILS % (AUTO) 53.9 %; PLT - PLATELET COUNT 336 10^3/uL (130-450); RED BLOOD COUNT 4.04 10^6/uL (4.70-6.10); RED CELL DISTRIBUTION WIDTH 12.1 % (12.0-15.0); WHITE BLOOD COUNT 7.3 x10^3/uL (4.8-10.8)
[2020-08-23 11:15] LABS: CALCIUM 9.2 mg/dL (8.5-10.3); CREATININE 0.6 mg/dL (0.6-1.2)
[2020-08-23 12:21] LABS: BILIRUBIN,URINE NEGATIVE (NEGATIVE); GLUCOSE, URINE (UA) NEGATIVE (NEGATIVE); KETONES,URINE (UA) NEGATIVE (NEGATIVE); LEUKOCYTE ESTERASE, URINE NEGATIVE (NEGATIVE); NITRITE,URINE NEGATIVE (NEGATIVE); OCCULT BLOOD,URINE NEGATIVE (NEGATIVE); PH,URINE 6.5 PH (5.0-7.5); PROTEIN,URINE NEGATIVE (NEGATIVE); UROBILINOGEN,URINE 0.2 (NORMAL) E.U./dL (NORMAL)
[2020-08-23 12:26] LABS: CLARITY,URINE CLEAR (CLEAR)
--- NOTE | 2020-08-23 12:32 | Ultrasound Report ---
PROCEDURE: Testicle w/Doppler Limited INDICATIONS: right (and left) inguinal/scrotal pain for days TECHNIQUE: Real-time scanning was performed of the scrotum and testicles, with image documentation. Color and p ulse Doppler interrogation was performed of both testicles. COMPARISON: None. FINDINGS: The right testicle measures 2.3 x 3.3 x 5.6 cm. Left skull measures 2.0 x 3.4 x 5.4 cm. No testicular mass. Small bilateral hydroceles. Moderate-sized bilateral varicoceles. Bilateral epididymal head cy sts measuring up to 5 mm on the right and 3 mm on the left. No inguinal hernia identified. Doppler im aging demonstrates normal arterial and venous flow within both testicles. IMPRESSION: Bilateral varicoceles, overall moderate in size. Small bilateral hydroceles. Reviewed by: Wenceslao Javier MD on 08/23/2020 12:31 PM PST Approved by: Wenceslao Javier MD on 08/23/2020 12:31 PM PST Station ID: [id number]
[2020-08-23 13:56] VITALS: BP 114/82
== END 2020-08-23 14:00 | disposition home or self-care (01) ==
LOC: ED 10:04
DX: R10.32 Left lower quadrant pain (principal); R10.31 Right lower quadrant pain; R11.0 Nausea; N43.3 Hydrocele, unspecified; I86.1 Scrotal varices; N50.3 Cyst of epididymis
CPT/HCPCS: 36415; 76870; 80048; 81003; 85025; 93976; 96374; 96375; 96376; 99284; J1170; 81001; 87086

== ENCOUNTER 2020-08-30 17:24 | Emergency (ER) | payer MEDICAID ==
[2020-08-30 17:37] VITALS: BP 138/84
[2020-08-30] MEDS ORDERED: oxyCODONE 5 MG TABLET PO STA (17:47)
--- NOTE | 2020-08-30 17:50 | ED Physician Documentation ---
PD HPI ABD PAIN - Stated complaint Stated Complaint: RT GROIN PAIN & SWELLING - Chief complaint Chief Complaint: Abd Pain - History obtained from History obtained from: Patient - Additional information Additional information: 40-year-old gentleman with chronic pain, recent diagnosis of colitis which is questionable because it was present on CT but not present on subsequent colonoscopy, however it was present on an interim MRI of the pelvis. Review of Systems Constitutional: reports: Reviewed and negative Ears: reports: Reviewed and negative Nose: reports: Reviewed and negative PD PAST MEDICAL HISTORY - Past Medical History Cardiovascular: None Respiratory: None, Other Neuro: None Endocrine/Autoimmune: None GI: None, GERD, Other : None HEENT: None Psych: Post traumatic stress disorder Musculoskeletal: Chronic back pain Derm: None - Past Surgical History Past Surgical History: No General: Cholecystectomy, Appendectomy, Other - Present Medications Home Medications: Ambulatory Orders Medication Instructions Recorded Confirmed Gabapentin 600 mg ORAL TID 06/21/18 07/24/20 Ibuprofen [Motrin] 600 mg ORAL TID 06/21/18 07/24/20 Prazosin [Minipress] 2 mg PO 1600 06/21/18 07/24/20 lamoTRIgine [LaMICtal] 200 mg ORAL DAILY 09/01/19 07/24/20 Acyclovir 400 mg PO Q8H 09/02/19 07/24/20 Cetirizine [ZyrTEC] 10 mg PO DAILY 09/02/19 07/24/20 Fluticasone [Flonase] 1 spray MUSHTAQ DAILY PRN 09/02/19 07/24/20 Prazosin HCl 4 mg PO QPM 09/02/19 07/24/20 HYDROcodone/ACET 7.5/325 [[place] 1 each PO TID #21 tab 07/31/20 7.5/325] HYDROmorphone [Dilaudid] 2 mg PO Q3HR PRN #32 tablet 07/31/20 Lactobacillus Rhamnosus GG 1 cap PO DAILY #10 capsule 07/31/20 [Culturelle] Lidocaine Patch 5% [Lidoderm Patch] 1 patch TOP DAILY PRN #30 patch 07/31/20 methocarbamoL [Methocarbamol] 1,500 mg PO BID PRN #120 tab 07/31/20 metroNIDAZOLE [Flagyl] 500 mg PO BID 10 Days #40 tablet 07/31/20 Docusate Sodium 100Mg Capsule 100 mg PO DAILY #20 02/22/21 [Colace 100Mg Capsule] Naproxen [EC-Naproxen] 500 mg PO BID #20 08/23/20 Oxycodone HCl/Acetaminophen 1 each PO Q6H PRN #18 tab 08/23/20 [Percocet 5-325 mg Tablet] Oxycodone HCl/Acetaminophen 1 - 2 each PO Q6H PRN #14 tab 08/30/20 [Percocet 5-325 mg Tablet] - Allergies Allergies/Adverse Reactions: Allergies Allergy/AdvReac Type Severity Reaction Status Date / Time amoxicillin Allergy Anaphylaxis Verified 08/30/20 17:34 amitriptyline AdvReac Hallucinati Verified 08/30/20 17:34 ons diphenhydramine AdvReac Hallucinati Verified 08/30/20 17:34 [From Benadryl] ons haloperidol [From Haldol] AdvReac Hallucinati Verified 08/30/20 17:34 ons - Social History Does the pt smoke?: No Smoking Status: Never smoker Does the pt drink ETOH?: No Does the pt have substance abuse?: No - Immunizations Immunizations are current?: Yes - POLST Patient has POLST: No POLST Status: Full Code PD ED PE NORMAL - Vitals Vital signs reviewed: Yes - General General: Alert and oriented X 3, No acute distress - HEENT HEENT: PERRL, EOMI - Abdomen Abdomen: Normal bowel sounds, Soft, Non tender, Other (Tender in the right inguinal hernia area with potentially some swelling but no obvious mass. Nothing to suggest an incarcerated hernia.) - Neuro Neuro: Alert and oriented X 3, Normal speech Results - Vitals Vitals: Vital Signs - 24 hr 08/30/20 17:34 Temperature 36.4 C L Heart Rate 72 Respiratory 20 Rate Blood Pressure 138/84 H O2 Saturation 97 Oxygen O2 Source Room air PD MEDICAL DECISION MAKING - ED course ED course: Clinically like a mild hernia. Of note recent imaging was reviewed which did not demonstrate a hernia but this may have developed in the interim. Nothing to suggest an alternate or more insidious or dangerous diagnosis. He was advised to follow-up with his surgeon. Departure - Departure Disposition: Home, Self Care Clinical Impression: Right inguinal hernia Condition: Good Record reviewed to determine appropriate education?: Yes Instructions: ED Hernia Inguinal Prescriptions: Oxycodone HCl/Acetaminophen [Percocet 5-325 mg Tablet] 1 - 2 each PO Q6H PRN #14 tab PRN Reason: pain Comments: Follow-up with your surgeon for evaluation. Return if worsening.
== END 2020-08-30 17:55 | disposition home or self-care (01) ==
LOC: ED 17:24
DX: K40.90 Unilateral inguinal hernia, without obstruction or gangrene, not specified as recurrent (principal); Z87.19 Personal history of other diseases of the digestive system; Z90.49 Acquired absence of other specified parts of digestive tract
CPT/HCPCS: 99282; 99283; A9270

== ENCOUNTER 2020-09-11 09:20 | Emergency (ER) | payer MEDICAID ==
[2020-09-11] MEDS ORDERED: HYDROmorphone 2 MG/ML VIAL IM STA (09:49)
[2020-09-11] MEDS ORDERED: KETOROLAC 30 MG/ML VIAL IM STA (09:49)
[2020-09-11] MEDS ORDERED: ACETAMINOPHEN 325 MG TABLET PO STA (09:50)
--- NOTE | 2020-09-11 10:35 | ED Physician Documentation ---
PD HPI ABD PAIN - Stated complaint Stated Complaint: MALE - Chief complaint Chief Complaint: General - History obtained from History obtained from: Patient - History of Present Illness Timing - onset: Today Timing - details: Abrupt onset (The patient has had pain in the right lower quadrant and was evaluated by a surgeon with diagnosis of hernia. He had been seen in the ER prior to that. He had an abrupt worsening of pain this morning after coughing and noted a lump there that was tender. It improved enroute but still some pain.), Still present, Now resolved (still having some pain lower abd but not as intense as it was after coughing this morning.) Quality: Cramping, Aching, Other (He coughed this morning and noted an abrupt onset of pain with his hernia being prominent firm and tender. He rested and laid down but was not feeling better. It has improved on route without the lump still.) Worsened by: Moving, Other (cough and lifting) Associated symptoms: Nausea (briefly), Vomiting (once when pain the worst.). No: Fever, Loss of appetite Similar symptoms before: Diagnosis (Prior history of lower intestinal colitis couple of months ago. That subsequently cleared. He was seen recently in ER with localized pain in the inguinal area diagnosed as hernia. Has followed up with surgeon and plan for repair on the .) Recently seen: Clinic, Emergency Dept Review of Systems Constitutional: denies: Fever Nose: denies: Rhinorrhea / runny nose, Congestion Throat: denies: Sore throat Respiratory: reports: Cough (intermittent due to smoking; no URI symptoms per se.) GI: reports: Abdominal Pain. denies: Nausea, Vomiting, Diarrhea PD PAST MEDICAL HISTORY - Past Medical History Past Medical History: Yes Cardiovascular: None Respiratory: None, Other Neuro: None Endocrine/Autoimmune: None GI: GERD, Other : None HEENT: None Psych: Post traumatic stress disorder Musculoskeletal: Chronic back pain Derm: None Other Past Medical History: Coliits. Hernia. - Past Surgical History Past Surgical History: Yes General: Cholecystectomy, Appendectomy, Other - Present Medications Home Medications: Ambulatory Orders Medication Instructions Recorded Confirmed Gabapentin 600 mg ORAL TID 06/21/18 09/11/20 Ibuprofen [Motrin] 600 mg ORAL TID 06/21/18 09/11/20 Prazosin [Minipress] 2 mg PO 1600 06/21/18 09/11/20 lamoTRIgine [LaMICtal] 200 mg ORAL DAILY 09/01/19 09/11/20 Acyclovir 400 mg PO Q8H 09/02/19 09/11/20 Cetirizine [ZyrTEC] 10 mg PO DAILY 09/02/19 09/11/20 Fluticasone [Flonase] 1 spray MUSHTAQ DAILY PRN 09/02/19 09/11/20 Prazosin HCl 4 mg PO QPM 09/02/19 09/11/20 HYDROcodone/ACET 7.5/325 [[place] 1 each PO TID #21 tab 07/31/20 09/11/20 7.5/325] Lactobacillus Rhamnosus GG 1 cap PO DAILY #10 capsule 07/31/20 09/11/20 [Culturelle] Lidocaine Patch 5% [Lidoderm Patch] 1 patch TOP DAILY PRN #30 patch 07/31/20 methocarbamoL [Methocarbamol] 1,500 mg PO BID PRN #120 tab 07/31/20 09/11/20 Docusate Sodium 100Mg Capsule 100 mg PO DAILY #20 08/23/20 09/11/20 [Colace 100Mg Capsule] Naproxen [EC-Naproxen] 500 mg PO BID #20 08/23/20 09/11/20 Oxycodone HCl/Acetaminophen 1 - 2 each PO Q6H PRN #18 tablet 09/11/20 [Percocet 5-325 mg Tablet] - Allergies Allergies/Adverse Reactions: Allergies Allergy/AdvReac Type Severity Reaction Status Date / Time amoxicillin Allergy Anaphylaxis Verified 09/11/20 09:26 amitriptyline AdvReac Hallucinati Verified 09/11/20 09:26 ons diphenhydramine AdvReac Hallucinati Verified 09/11/20 09:26 [From Benadryl] ons haloperidol [From Haldol] AdvReac Hallucinati Verified 09/11/20 09:26 ons - Social History Does the pt smoke?: No Smoking Status: Never smoker Does the pt drink ETOH?: No Does the pt have substance abuse?: Yes Substance Use and Type: Marijuana - Immunizations Immunizations are current?: Yes - POLST Patient has POLST: No POLST Status: Full Code PD ED PE NORMAL - Vitals Vital signs reviewed: Yes - General General: Alert and oriented X 3, Well developed/nourished, Other (He seems mild to moderately uncomfortable. He has minimal tenderness to palpation in the abdomen. No masses noted.) - Cardiac Cardiac: RRR, No murmur - Respiratory Respiratory: Clear bilaterally - Abdomen Abdomen: Normal bowel sounds, Soft, Non distended, No organomegaly, Other (Has some tenderness in the right lower abdomen and inguinal area. Laying flat there is no hernia felt. Scrotal area is without any tenderness or swelling. No signs of persistent incarceration.) Results - Vitals Vitals: Vital Signs - 24 hr 09/11/20 09/11/20 09/11/20 09:23 09:36 10:23 Temperature 36.7 C Heart Rate 68 55 L 51 L Respiratory 18 16 14 Rate Blood Pressure 137/74 H 134/75 H 129/80 O2 Saturation 100 100 98 09/11/20 10:48 Temperature Heart Rate 50 L Respiratory 16 Rate Blood Pressure 124/76 O2 Saturation 97 Oxygen O2 Source Room air PD MEDICAL DECISION MAKING - ED course Complexity details: reviewed old records, considered differential (Sounds like he had a brief incarceration of his hernia this morning which is reduced on route. Still having some localized pain. He has been taking stool softener and stooling okay. Will provide short-term pain medication. Planned surgery on the and to return if worse again.), d/w patient Departure - Departure Disposition: 01 Home, Self Care Clinical Impression: Right inguinal pain Inguinal hernia Qualifiers: Obstruction and gangrene presence: without obstruction or gangrene Laterality: unilateral Recurrence: not specified as recurrent Qualified Code(s): K40.90 - Unilateral inguinal hernia, without obstruction or gangrene, not specified as recurrent Condition: Stable Record reviewed to determine appropriate education?: Yes Instructions: ED Hernia Inguinal Prescriptions: Oxycodone HCl/Acetaminophen [Percocet 5-325 mg Tablet] 1 - 2 each PO Q6H PRN #18 tablet PRN Reason: pain Comments: Regular diet. Continue with your prescribed anti-inflammatory with food. Continue your stool softener/laxative once or twice daily to ensure easy bowel movements. Tylenol 500 mg 4 times a day for the next several days or Percocet if needed for worse pain. Follow-up with your surgeon in [place] for repair of the hernia as planned. Return if recurrent episodes of it hurting or feeling stuck out or tender and not relieved by laying flat and gentle pressure. Discharge Date/Time: 09/11/20 10:50
[2020-09-11 10:50] VITALS: BP 124/76
== END 2020-09-11 10:50 | disposition home or self-care (01) ==
LOC: ED 09:20
DX: R10.31 Right lower quadrant pain (principal); K40.90 Unilateral inguinal hernia, without obstruction or gangrene, not specified as recurrent
CPT/HCPCS: 96372; 99283; A9270; J1170

== ENCOUNTER 2020-09-13 13:51 | Emergency (ER) | payer MEDICAID ==
[2020-09-13] MEDS ORDERED: KETOROLAC 30 MG/ML VIAL IVP STA (14:27)
[2020-09-13] MEDS ORDERED: HYOSCYAMINE SL 0.125 MG TABLET SL STA (14:27)
[2020-09-13] MEDS ORDERED: MORPHINE 2 MG/ML CARPUJECT IVP STA (14:27)
--- NOTE | 2020-09-13 14:30 | ED Physician Documentation ---
PD HPI ABD PAIN - Stated complaint Stated Complaint: ABD PX - Chief complaint Chief Complaint: Abd Pain - History obtained from History obtained from: Patient - History of Present Illness Timing - details: Abrupt onset, Gradual onset Pain level max: 10 Pain level now: 10 Quality: Aching, Pain Improved by: Other (nothing) Worsened by: Moving, Palpation Associated symptoms: Nausea, Vomiting. No: Fever, Hematemesis, Diarrhea, Constipation, Melena, Hematochezia, Dysuria Similar symptoms before: Has not had sx before Recently seen: Not recently seen - Additional information Additional information: 40-year-old male presents to the emergency department with what he states is worsening abdominal pain. He has chronic abdominal pain. He is normally maintained on hydrocodone 10-325 at home. He has received several prescriptions for oxycodone from this emergency department recently. He states that he took the last dose of oxycodone this morning. Received 18 pills 2 days ago from this ER. States the pain is not improved. History of possible colitis, this was on CT scan, however was not confirmed on colonoscopy. Nothing makes the pain better or worse. He is scheduled for a right herniorrhaphy on the of this month and in [place]. He states that this pain feels different than his hernia. He states that the pain caused him to vomit today. Denies any fevers. Denies any chills. No diarrhea or constipation. Review of Systems Ten Systems: 10 systems reviewed and negative Constitutional: denies: Fever, Chills Cardiac: denies: Chest pain / pressure Respiratory: denies: Cough GI: denies: Hematemesis, Bloody / black stool : denies: Dysuria Skin: denies: Rash Musculoskeletal: denies: Neck pain, Back pain Neurologic: denies: Headache PD PAST MEDICAL HISTORY - Past Medical History Past Medical History: Yes Cardiovascular: None Respiratory: None, Other Neuro: None Endocrine/Autoimmune: None GI: GERD, Other : None HEENT: None Psych: Post traumatic stress disorder Musculoskeletal: Chronic back pain Derm: None - Past Surgical History Past Surgical History: Yes General: Cholecystectomy, Appendectomy, Other - Present Medications Home Medications: Ambulatory Orders Medication Instructions Recorded Confirmed Gabapentin 600 mg ORAL TID 06/21/18 09/13/20 Ibuprofen [Motrin] 600 mg ORAL TID 06/21/18 09/13/20 Prazosin [Minipress] 2 mg PO 1600 06/21/18 09/13/20 lamoTRIgine [LaMICtal] 200 mg ORAL DAILY 09/01/19 09/13/20 Acyclovir 400 mg PO Q8H 09/02/19 09/13/20 Cetirizine [ZyrTEC] 10 mg PO DAILY 09/02/19 09/13/20 Fluticasone [Flonase] 1 spray MUSHTAQ DAILY PRN 09/02/19 09/13/20 Prazosin HCl 4 mg PO QPM 09/02/19 09/13/20 HYDROcodone/ACET 7.5/325 [[place] 1 each PO TID #21 tab 07/31/20 09/13/20 7.5/325] Lactobacillus Rhamnosus GG 1 cap PO DAILY #10 capsule 07/31/20 09/13/20 [Culturelle] Lidocaine Patch 5% [Lidoderm Patch] 1 patch TOP DAILY PRN #30 patch 07/31/20 09/13/20 methocarbamoL [Methocarbamol] 1,500 mg PO BID PRN #120 tab 07/31/20 09/13/20 Docusate Sodium 100Mg Capsule 100 mg PO DAILY #20 08/23/20 09/13/20 [Colace 100Mg Capsule] Naproxen [EC-Naproxen] 500 mg PO BID #20 08/23/20 09/13/20 Oxycodone HCl/Acetaminophen 1 - 2 each PO Q6H PRN #18 tablet 09/11/20 09/13/20 [Percocet 5-325 mg Tablet] predniSONE [Deltasone] 10 mg PO [id number] #42 tab 09/13/20 - Allergies Allergies/Adverse Reactions: Allergies Allergy/AdvReac Type Severity Reaction Status Date / Time amoxicillin Allergy Anaphylaxis Verified 09/13/20 13:56 amitriptyline AdvReac Hallucinati Verified 09/13/20 13:56 ons diphenhydramine AdvReac Hallucinati Verified 09/13/20 13:56 [From Benadryl] ons haloperidol [From Haldol] AdvReac Hallucinati Verified 09/13/20 13:56 ons - Social History Does the pt smoke?: No Smoking Status: Never smoker Does the pt drink ETOH?: No Does the pt have substance abuse?: Yes - Immunizations Immunizations are current?: Yes - POLST Patient has POLST: No POLST Status: Full Code PD ED PE NORMAL - Vitals Vital signs reviewed: Yes - General General: Alert and oriented X 3, No acute distress - HEENT HEENT: Moist mucous membranes - Neck Neck: Supple, no meningeal sign - Cardiac Cardiac: RRR - Respiratory Respiratory: No respiratory distress, Clear bilaterally - Abdomen Abdomen: Soft, Non distended, Other (mild TTP LLQ. no peritoneal signs. no palpable inguinal hernias or swelling. ) - Derm Derm: Warm and dry - Extremities Extremities: No edema - Neuro Neuro: Alert and oriented X 3 - Psych Psych: Normal mood, Normal affect Results - Vitals Vitals: Vital Signs - 24 hr 09/13/20 09/13/20 13:54 15:55 Temperature 36.7 C Heart Rate 55 L 50 L Respiratory 18 19 Rate Blood Pressure 133/78 H 126/81 H O2 Saturation 98 99 Oxygen O2 Source Room air - Labs Labs: Laboratory Tests 09/13/20 09/13/20 09/13/20 14:40 14:45 14:45 WBC 6.7 RBC 4.08 L Hgb 13.6 L Hct 38.3 L MCV 93.9 MCH 33.3 H MCHC 35.5 RDW 11.5 L Plt Count 366 MPV 8.9 Neut # (Auto) 4.0 Lymph # (Auto) 2.3 [place] # (Auto) 0.3 Eos # (Auto) 0.1 Baso # (Auto) 0.0 Absolute Nucleated RBC 0.00 Nucleated RBC % 0.0 Sodium 139 Potassium 3.6 Chloride 107 Carbon Dioxide 22 Anion Gap 10.0 BUN 19 Creatinine 0.6 Estimated GFR (MDRD) 148 Glucose 96 Calcium 9.4 Total Bilirubin 0.5 AST 17 ALT 19 Alkaline Phosphatase 36 L Total Protein 7.0 Albumin 4.8 Globulin 2.2 Albumin/Globulin Ratio 2.2 Lipase 27 Urine Color YELLOW Urine Clarity CLEAR Urine pH 7.5 Ur Specific [place] 1.010 Urine Protein NEGATIVE Urine Glucose (UA) NEGATIVE Urine Ketones NEGATIVE Urine Occult Blood NEGATIVE Urine Nitrite NEGATIVE Urine Bilirubin NEGATIVE Urine Urobilinogen 0.2 (NORMAL) Ur Leukocyte Esterase NEGATIVE Ur Microscopic Review NOT INDICATED Urine Culture Comments NOT INDICATED - Rads (name of study) CT abd/pelvis Radiology: Prelim report reviewed, EMP read contemporaneously, See rad report PD MEDICAL DECISION MAKING - ED course Complexity details: reviewed results, re-evaluated patient, considered differential, d/w patient ED course: 40-year-old male with acute on chronic abdominal pain. Possible mild colitis on CT scan. He was given a dose of morphine, Toradol and 1 dose of Dilaudid here. His is driving him home. Patient received 18 Percocet 2 days ago, he states he has gone through these already. This is in addition to the 90 hydrocodone/acetaminophen 10/325 that he received on 09/02 and the 14 Percocet that he received on 08/30. He also received another 18 Percocet on 08/23. According to his ED i.e., patient received over 1400 pills within the last 12 months for controlled substances. 13 unique prescribers and 3 unique pharmacies. Given that his colonoscopy was normal, normal white count, no fever. I doubt that his mild colitis is infectious in nature. We can trial him on steroids and see if this improves his symptoms. I did discuss with him that I would be unable to prescribe narcotics at this visit. He will need to follow-up with his doctor to adjust his chronic pain medication. Patient states awareness of this. Patient is well-appearing, nontoxic. Afebrile. Patient counseled regarding signs and symptoms for which I believe and urgent re-evaluation would be necessary. Patient with good understanding of and agreement to plan and is comfortable going home at this time This document was made in part using voice recognition software. While efforts are made to proofread this document, sound alike and grammatical errors may occur. IMPRESSION: 1. Finding is concerning for mild sigmoid colitis. No abscess collection. No si gnificant free fluid or free air. Departure - Departure Disposition: 01 Home, Self Care Clinical Impression: Abdominal pain Qualifiers: Abdominal location: unspecified location Qualified Code(s): R10.9 - Unspecified abdominal pain Chronic pain Qualifiers: Chronic pain type: other chronic pain Qualified Code(s): G89.29 - Other chronic pain Condition: Good Instructions: ED Abdominal Pain Unkn Cause Follow-Up: Your,doctor in 1 week [Other] Prescriptions: predniSONE [Deltasone] 10 mg PO [id number] #42 tab Comments: Follow-up with your doctor for further care. We will trial you on steroids, this is likely an inflammatory colitis rather than infectious. If there is a colitis happening, it is currently mild based on your CT and laboratory findings. As we discussed we are unable to provide a prescription for narcotics today, these will need to be obtained from your primary prescriber for your hydrocodone. Discharge Date/Time: 09/13/20 16:30
[2020-09-13] MEDS ORDERED: IOVERSOL 320 100 ML VIAL IVP ONE ×2 (14:39→15:46)
[2020-09-13 15:04] LABS: BASOPHILS % (AUTO) 0.5 %; EOSINOPHILS # (AUTO) 0.1 10^3/uL (0.0-0.7); EOSINOPHILS % (AUTO) 0.9 %; HCT - HEMATOCRIT 38.3 % (42.0-52.0); HGB - HEMOGLOBIN 13.6 g/dL (14.0-18.0); LYMPHOCYTES # (AUTO) 2.3 10^3/uL (1.5-3.5); LYMPHOCYTES % (AUTO) 34.4 %; MEAN CORPUSCULAR HEMOGLOBIN 33.3 pg (27.0-31.0); MEAN CORPUSCULAR HGB CONC 35.5 g/dL (32.0-36.0); MEAN CORPUSCULAR VOLUME 93.9 fL (80.0-94.0); MEAN PLATELET VOLUME 8.9 fL (7.4-11.4); MONOCYTES # (AUTO) 0.3 10^3/uL (0.0-1.0); MONOCYTES % (AUTO) 4.2 %; NEUTROPHILS % (AUTO) 59.8 %; PLT - PLATELET COUNT 366 10^3/uL (130-450); RED BLOOD COUNT 4.08 10^6/uL (4.70-6.10); RED CELL DISTRIBUTION WIDTH 11.5 % (12.0-15.0); WHITE BLOOD COUNT 6.7 x10^3/uL (4.8-10.8)
[2020-09-13 15:17] LABS: ALBUMIN 4.8 g/dL (3.2-5.5); ALBUMIN/GLOBULIN RATIO 2.2 (1.0-2.2); BILIRUBIN,TOTAL 0.5 mg/dL (0.2-1.0); CALCIUM 9.4 mg/dL (8.5-10.3); CREATININE 0.6 mg/dL (0.6-1.2); POTASSIUM 3.6 mmol/L (3.5-5.0)
[2020-09-13 16:03] LABS: BILIRUBIN,URINE NEGATIVE (NEGATIVE); GLUCOSE, URINE (UA) NEGATIVE (NEGATIVE); KETONES,URINE (UA) NEGATIVE (NEGATIVE); LEUKOCYTE ESTERASE, URINE NEGATIVE (NEGATIVE); NITRITE,URINE NEGATIVE (NEGATIVE); OCCULT BLOOD,URINE NEGATIVE (NEGATIVE); PH,URINE 7.5 PH (5.0-7.5); PROTEIN,URINE NEGATIVE (NEGATIVE); UROBILINOGEN,URINE 0.2 (NORMAL) E.U./dL (NORMAL)
[2020-09-13 16:04] LABS: CLARITY,URINE CLEAR (CLEAR)
--- NOTE | 2020-09-13 16:17 | CT Report ---
PROCEDURE: Abdomen/Pelvis W INDICATIONS: diffuse lower abd pain CONTRAST: IV CONTRAST: Optiray 320 ml: 100 PO CONTRAST: *NO PO CONTRAST TECHNIQUE: After the administration of IV contrast, 5 mm thick sections acquired from the diaphragms to the symp hysis. 5 mm thick coronal and sagittal reformats were acquired. For radiation dose reduction, the f ollowing was used: automated exposure control, adjustment of mA and/or kV according to patient size. COMPARISON: 07/24/2020 and 05/03/2020. FINDINGS: Image quality: Excellent. ABDOMEN: Lung bases: Lung bases are clear. Heart size is normal. Solid organs: Liver and spleen are normal in size and enhancement. Gallbladder is within normal [place] its Biliary system is non dilated. Pancreas enhances normally. No adrenal nodules. Kidneys demons trate normal size and enhancement, without hydronephrosis. Peritoneum and bowel: There is no bowel obstruction. Mild fecal stasis in the colon is seen. There is suggestion of sigmoid colon wall thickening with mild narrowing of the lumen. No significant mesente bailey fat stranding. No significant free fluid or free air. No evidence of acute appendicitis. No absce ss collection. Nodes and vessels: No retroperitoneal or mesenteric adenopathy by size criteria. Aorta and inferior vena cava are normal in size. Miscellaneous: No ventral hernias. PELVIS: Genitourinary: Bladder wall thickness is normal. Miscellaneous: No inguinal hernias or adenopathy. Bones: No suspicious bony lesions. No vertebral body compression fractures. IMPRESSION: 1. Finding is concerning for mild sigmoid colitis. No abscess collection. No significant free fluid o r free air. Reviewed by: Will Coello MD on 09/13/2020 4:16 PM PDT Approved by: Will Coello MD on 09/13/2020 4:16 PM PDT Station ID: [id number]
[2020-09-13] MEDS ORDERED: methylPREDNISolone SUCCINATE 125 MG/2 ML VIAL IVP STA (16:23)
[2020-09-13] MEDS ORDERED: HYDROmorphone 1 MG/ML CARPUJECT IVP STA (16:27)
[2020-09-13 18:04] VITALS: BP 126/81
== END 2020-09-13 16:30 | disposition home or self-care (01) ==
LOC: ED 13:51
DX: K52.9 Noninfective gastroenteritis and colitis, unspecified (principal); R10.32 Left lower quadrant pain; G89.29 Other chronic pain; Z90.49 Acquired absence of other specified parts of digestive tract
CPT/HCPCS: 36415; 74177; 80053; 81003; 83690; 85025; 96374; 96375; 99284; A9270; J1170; Q9967; 81001; 87086

== ENCOUNTER 2020-10-15 08:39 | Emergency (ER) | payer MEDICAID ==
--- OUTSIDE RECORDS SUMMARY | 2020-10-15 08:42 | EXTERNAL MEDICAL SUMMARY RPT | Continuity of Care Document ---
:1980 Demographics Phone Unavailable Preferred Language Romansh Marital Status Unknown Taoist Affiliation Unknown Race Unknown Ethnic Group Unknown Author Organization [facility] Address [address] [phone] Phone Care Team Providers Name Role Phone Botnick Unavailable Unavailable Abel Unavailable Unavailable Problems date description facility 20200917 Contact with and (suspected) exposure [address] 20200920 Other specified postprocedural [facility] 20200920 Personal history of other diseases of [facility] system 20200920 Unilateral inguinal hernia, without obs truction or [facility] gangrene, Medications date description facility 20200920 Oxycodone Hydrochloride 5 MG Oral [facility] 20200920 Methylphenidate Hydrochloride 10 MG [facility] 20200920 Docusate Sodium 100 MG Oral Capsule Is [facility] 20200920 Oxycodone Hydrochloride 5 MG Oral [facility] 20200920 Methylphenidate Hydrochloride 10 MG [facility] 20200920 Docusate Sodium 100 MG Oral Capsule Is [facility] Procedures date description facility 20200722 [facility] date description facility 20200722 [facility] date description facility [id number] [facility] date description facility [id number] [facility] date description facility 20200917 [facility] date description facility 20200917 [facility] date description facility 20200920 [facility] date description facility 20200920 [facility] date description facility 20200927 [facility] Vital Signs date measurement value source 20200722 BP_diastolic 64 mm[Hg] 20200722 BP_systolic 122 mm[Hg] 20200722 heart_rate 70 /min 20200722 respiration_rate 14 /min 20200722 temperature_metric 37.33 C 20200722 temperature_standard 99.2 F date measurement value source 20200908 BP_diastolic 64 mm[Hg] 20200908 BP_systolic 138 mm[Hg] 20200908 heart_rate 61 /min 20200908 temperature_metric 36.33 C 20200908 temperature_standard 97.4 F date measurement value source 20200917 heart_rate 79 /min 20200917 temperature_metric 37.17 C 20200917 temperature_standard 98.9 F date measurement value source 20200920 BMI 21.5 kg/m2 20200920 BP_diastolic 60 mm[Hg] 20200920 BP_systolic 112 mm[Hg] 20200920 heart_rate 58 /min 20200920 height_metric 180.34 cm 20200920 height_standard 71 in 20200920 respiration_rate 14 /min 20200920 temperature_metric 36.83 C 20200920 temperature_standard 98.3 F 20200920 weight_metric 31.81 kg 20200920 weight_standard 70.13 lb date measurement value source 20200927 BMI 22.0 kg/m2 20200927 BP_diastolic 58 mm[Hg] 20200927 BP_systolic 125 mm[Hg] 20200927 heart_rate 52 /min 20200927 height_metric 180.34 cm 20200927 height_standard 71 in 20200927 respiration_rate 19 /min 20200927 temperature_metric 36.83 C 20200927 temperature_standard 98.3 F 20200927 weight_metric 32.52 kg 20200927 weight_standard 71.7 lb Social History date description facility [id number]
--- NOTE | 2020-10-15 08:48 | ED Physician Documentation ---
PD HPI ABD PAIN - Stated complaint Stated Complaint: ABD PX - History obtained from History obtained from: Patient - History of Present Illness Timing - onset: Last night, Yesterday Timing - duration: Hours (several hours) Timing - details: Abrupt onset, Still present Quality: Aching, Sharp, Pain Location: RLQ, Other (inguinal area, at and just below recent hernia repair site.) Radiation: No: Lower back, Right flank Improved by: Laying still. No: Position Worsened by: Moving, Palpation. No: Breathing Associated symptoms: No: Fever, Nausea, Vomiting, Diarrhea, Constipation, Dysuria, Hematuria Similar symptoms before: Diagnosis (has had similar pain in that area from hernia previously, but also some findings on prior visits/CTs showing mild colitis. Hospitalized in Jul for such with findings on CT/MRI, but negative colonoscopy. CT 09/14 showed possible mild sigmoid colitis. No kidney stones on that imaging.) Recently seen: Surgery (3 weeks ago for hernia repair traditional method, right inguinal, done at [facility]. He states he was at [facility] the week after for concern of early infection due to pain, but no signs infection and was not Rx any abx. Has chronic lower abd pain from adhesions/scarring from prior appy.) Review of Systems Constitutional: denies: Fever, Chills Nose: denies: Congestion Respiratory: denies: Cough GI: reports: Abdominal Pain. denies: Nausea, Vomiting, Constipation (has had BMs with use of regular probiotics and stool softeners.), Diarrhea : denies: Dysuria, Frequency, Discharge, Testicular pain Skin: denies: Rash Musculoskeletal: denies: Neck pain, Back pain PD PAST MEDICAL HISTORY - Past Medical History Cardiovascular: None Respiratory: None, Other Neuro: None Endocrine/Autoimmune: None GI: GERD, Other : None HEENT: None Psych: Post traumatic stress disorder Musculoskeletal: Chronic back pain Derm: None - Past Surgical History Past Surgical History: Yes General: Cholecystectomy, Appendectomy, Other - Present Medications Home Medications: Ambulatory Orders Medication Instructions Recorded Confirmed Gabapentin 600 mg ORAL TID 06/21/18 10/15/20 Ibuprofen [Motrin] 600 mg ORAL TID 06/21/18 09/13/20 Prazosin [Minipress] 2 mg PO 1600 06/21/18 10/15/20 lamoTRIgine [LaMICtal] 200 mg ORAL DAILY 09/01/19 10/15/20 Acyclovir 400 mg PO Q8H 09/02/19 10/15/20 Cetirizine [ZyrTEC] 10 mg PO DAILY 09/02/19 10/15/20 Fluticasone [Flonase] 1 spray MUSHTAQ DAILY PRN 09/02/19 10/15/20 Prazosin HCl 4 mg PO QPM 09/02/19 10/15/20 HYDROcodone/ACET 7.5/325 [[place] 1 each PO TID #21 tab 07/31/20 10/15/20 7.5/325] Lactobacillus Rhamnosus GG 1 cap PO DAILY #10 capsule 07/31/20 10/15/20 [Culturelle] Lidocaine Patch 5% [Lidoderm Patch] 1 patch TOP DAILY PRN #30 patch 07/31/20 10/15/20 methocarbamoL [Methocarbamol] 1,500 mg PO BID PRN #120 tab 07/31/20 10/15/20 Docusate Sodium 100Mg Capsule 100 mg PO DAILY #20 08/23/20 10/15/20 [Colace 100Mg Capsule] dexAMETHasone [Decadron] 4 mg PO DAILY #7 tablet 10/15/20 - Allergies Allergies/Adverse Reactions: Allergies Allergy/AdvReac Type Severity Reaction Status Date / Time amoxicillin Allergy Anaphylaxis Verified 10/15/20 08:55 amitriptyline AdvReac Hallucinati Verified 10/15/20 08:55 ons diphenhydramine AdvReac Hallucinati Verified 10/15/20 08:55 [From Benadryl] ons haloperidol [From Haldol] AdvReac Hallucinati Verified 10/15/20 08:55 ons - Social History Does the pt smoke?: No Smoking Status: Never smoker Does the pt drink ETOH?: No Does the pt have substance abuse?: Yes - Immunizations Immunizations are current?: Yes - POLST Patient has POLST: No POLST Status: Full Code PD ED PE NORMAL - Vitals Vital signs reviewed: Yes - General General: Alert and oriented X 3, Well developed/nourished, Other (appears somewhat anxious and in states pain. Easy ROM getting into bed and moving in bed. ) - Neck Neck: Supple, no meningeal sign, No adenopathy - Cardiac Cardiac: RRR, No murmur - Respiratory Respiratory: Clear bilaterally - Abdomen Abdomen: Normal bowel sounds, Soft, Non distended, No organomegaly, Other (well healing incision right inguinal without signs of infection. No masses in the area. Locally tender in inguinal area. Abdomen itself is not really tender. ) - Male Male : Other (No scrotal swelling nor tenderness nor masses. ) Results - Vitals Vitals: Vital Signs - 24 hr 10/15/20 10/15/20 08:52 11:06 Temperature 36.6 C 37.0 C Heart Rate 63 49 L Respiratory 16 18 Rate Blood Pressure 136/86 H 119/74 O2 Saturation 98 99 Oxygen O2 Source Room air - Labs Labs: Laboratory Tests 10/15/20 10/15/20 10/15/20 09:33 09:33 09:35 WBC 5.1 RBC 4.02 L Hgb 13.0 L Hct 37.8 L MCV 94.0 MCH 32.3 H MCHC 34.4 RDW 12.1 Plt Count 363 MPV 8.5 Neut # (Auto) 2.1 Lymph # (Auto) 2.5 [place] # (Auto) 0.2 Eos # (Auto) 0.2 Baso # (Auto) 0.0 Absolute Nucleated RBC 0.00 Nucleated RBC % 0.0 Sodium 142 Potassium 4.1 Chloride 112 H Carbon Dioxide 24 Anion Gap 6.0 BUN 18 Creatinine 0.6 Estimated GFR (MDRD) 148 Glucose 99 Calcium 9.2 Total Bilirubin 0.7 AST 15 ALT 17 Alkaline Phosphatase 36 L C-Reactive Protein < 1.0 Total Protein 6.3 L Albumin 4.3 Globulin 2.0 L Albumin/Globulin Ratio 2.2 Lipase 33 Urine Color DARK YELLOW Urine Clarity CLEAR Urine pH 7.0 Ur Specific [place] 1.025 Urine Protein NEGATIVE Urine Glucose (UA) NEGATIVE Urine Ketones NEGATIVE Urine Occult Blood NEGATIVE Urine Nitrite NEGATIVE Urine Bilirubin NEGATIVE Urine Urobilinogen 0.2 (NORMAL) Ur Leukocyte Esterase NEGATIVE Ur Microscopic Review NOT INDICATED Urine Culture Comments NOT INDICATED PD MEDICAL DECISION MAKING - ED course Complexity details: reviewed old records (Patient has a care plan letter stating that we would not be giving him narcotic medications in the ER or prescription related to his having been seen driving from the department after receiving narcotic medications here. He states unaware of the limitation. I did verify the address it was sent to.), re-evaluated patient (No improvement with Toradol. Requests Dilaudid, as this has helped in the past. ), considered differential (Recurrent lower abdominal pain. He states it hurts in the area of recent hernia repair. He has had prior episodes of possible localized colitis felt to be more inflammatory. He was seen 09/14/[address] showing mild sigmoid wall thickening. Improved then with steroids& got IV Dilaudid 1 mg in ER), d/w patient ED course: RAFFY shows Rx for 90 hydrocodone on 09/30/20, and frequent opioid Rxs prior to that. He had had surgery at that time (the first). The patient did receive some pain medicine in the ER on last visit but a letter stating we would not give him any sedative medications was sent to him on that same date so is in force in the interval since the prior visit. I explained this to him. He was upset about that. He did asked to speak with administration. Quality office person did come and talk with him and will follow up with him in presumably Dr. Smith as our department medical case worker. His abdominal exam is nonperitoneal and sounds likely to be some scar tissue and pain in the area. Cannot rule out a mild colitis but his labs are good. Can treat with some steroid dosing as that had helped on a prior visits. I did not feel acute imaging was reindicated. Departure - Departure Disposition: 01 Home, Self Care Clinical Impression: Right lower quadrant abdominal pain, Deep inguinal pain, right Condition: Stable Instructions: ED Abdominal Pain Unkn Cause Prescriptions: dexAMETHasone [Decadron] 4 mg PO DAILY #7 tablet Comments: Continue your usual medications and phome pain meds. Follow up with PMD. Add Decadron steroid daily for a week for possible colitis exacerbation. Stay well hydrated. Return if fever, bloody stools, signs of infection at wound site, vomiting, other concerns. Discharge Date/Time: 10/15/20 11:18
--- OUTSIDE RECORDS SUMMARY | 2020-10-15 08:51 | EXTERNAL MEDICAL SUMMARY RPT | Continuity of Care Document ---
:1980 Demographics Phone Unavailable Preferred Language Latvian Marital Status Unknown [employer] Affiliation Unknown Race Unknown Ethnic Group Unknown Author Organization [place] Address [address] [phone] Phone Care Team Providers Name Role Phone Abel Unavailable Unavailable Botnick Unavailable Unavailable Problems date description facility 20200917 Contact with and (suspected) exposure [address] 20[address]20 Other specified postprocedural [facility] 20200920 Personal history of other diseases of [facility] system 20200920 Unilateral inguinal hernia, without obs truction or [facility] gangrene, Medications date description facility 20200920 Oxycodone Hydrochloride 5 MG Oral [facility] 20200920 Methylphenidate Hydrochloride 10 MG [facility] 20200920 Docusate Sodium 100 MG Oral Capsule Is [facility] 20200920 Oxycodone Hydrochloride 5 MG Oral [facility] [place] 20200920 Methylphenidate Hydrochloride 10 MG [facility] 20200920 Docusate Sodium 100 MG Oral Capsule Is [facility] Procedures date description facility 20200722 [facility] date description facility 20200722 [facility] date description facility [id number] [facility] date description facility [id number] [facility] date description facility 20200917 [facility] date description facility 20200917 [facility] date description facility 20200920 [facility] date description facility 20200920 [facility] date description facility 20200927 [facility] Vital Signs date measurement value source [...] 71.7 lb Social History date description facility [id number]
[2020-10-15] MEDS ORDERED: KETOROLAC 30 MG/ML VIAL IM STA (09:17)
[2020-10-15 09:41] LABS: BASOPHILS % (AUTO) 0.6 %; EOSINOPHILS # (AUTO) 0.2 10^3/uL (0.0-0.7); EOSINOPHILS % (AUTO) 3.6 %; HCT - HEMATOCRIT 37.8 % (42.0-52.0); LYMPHOCYTES # (AUTO) 2.5 10^3/uL (1.5-3.5); LYMPHOCYTES % (AUTO) 49.9 %; MEAN CORPUSCULAR HEMOGLOBIN 32.3 pg (27.0-31.0); MEAN CORPUSCULAR HGB CONC 34.4 g/dL (32.0-36.0); MEAN PLATELET VOLUME 8.5 fL (7.4-11.4); MONOCYTES # (AUTO) 0.2 10^3/uL (0.0-1.0); MONOCYTES % (AUTO) 4.6 %; NEUTROPHILS # (AUTO) 2.1 10^3/uL (1.5-6.6); NEUTROPHILS % (AUTO) 41.3 %; PLT - PLATELET COUNT 363 10^3/uL (130-450); RED BLOOD COUNT 4.02 10^6/uL (4.70-6.10); RED CELL DISTRIBUTION WIDTH 12.1 % (12.0-15.0); WHITE BLOOD COUNT 5.1 x10^3/uL (4.8-10.8)
[2020-10-15 09:54] LABS: BILIRUBIN,URINE NEGATIVE (NEGATIVE); GLUCOSE, URINE (UA) NEGATIVE (NEGATIVE); KETONES,URINE (UA) NEGATIVE (NEGATIVE); LEUKOCYTE ESTERASE, URINE NEGATIVE (NEGATIVE); NITRITE,URINE NEGATIVE (NEGATIVE); OCCULT BLOOD,URINE NEGATIVE (NEGATIVE); PROTEIN,URINE NEGATIVE (NEGATIVE); UROBILINOGEN,URINE 0.2 (NORMAL) E.U./dL (NORMAL)
[2020-10-15 09:58] LABS: ALBUMIN 4.3 g/dL (3.2-5.5); ALBUMIN/GLOBULIN RATIO 2.2 (1.0-2.2); ALKALINE PHOSPHATASE 36 IU/L (42-121); ALT ALANINE AMINOTRANSFERASE 17 IU/L (10-60); AST ASPARTATE AMINOTRANSFERASE 15 IU/L (10-42); BILIRUBIN,TOTAL 0.7 mg/dL (0.2-1.0); BUN - BLOOD UREA NITROGEN 18 mg/dL (6-20); CALCIUM 9.2 mg/dL (8.5-10.3); CARBON DIOXIDE - CO2 24 mmol/L (21-32); CHLORIDE 112 mmol/L (101-111); CREATININE 0.6 mg/dL (0.6-1.2); GFR - MDRD 148 (>89); GLUCOSE 99 mg/dL (70-100); LIPASE 33 U/L (22-51); POTASSIUM 4.1 mmol/L (3.5-5.0); SODIUM 142 mmol/L (135-145); TOTAL PROTEIN 6.3 g/dL (6.7-8.2)
[2020-10-15 10:00] LABS: CLARITY,URINE CLEAR (CLEAR)
[2020-10-15] MEDS ORDERED: CHERRY SYRUP 10 ML UDC PO ONE (10:06)
[2020-10-15] MEDS ORDERED: DEXAMETHASONE 10 MG/ML VIAL PO STA (10:06)
[2020-10-15 10:31] LABS: CRP - C-REACTIVE PROTEIN < 1.0 mg/dL (0-1.0)
[2020-10-15 11:07] VITALS: BP 119/74
== END 2020-10-15 11:18 | disposition home or self-care (01) ==
LOC: ED 08:39
DX: R10.31 Right lower quadrant pain (principal); Z98.890 Other specified postprocedural states
CPT/HCPCS: 36415; 80053; 81003; 83690; 85025; 86140; 96372; 99283; 99284; A9270; 81001; 87086

== ENCOUNTER 2024-02-01 11:13 | Outpatient (CLI) | payer MEDICAID ==
--- NOTE | 2024-02-01 16:29 | XRAY Report ---
PROCEDURE: Knee 3V LT INDICATIONS: LEFT KNEE INFECTIVE BURSITIS TECHNIQUE: 3 views of the knee(s) were acquired. COMPARISON: None. FINDINGS: Bones: No fractures or dislocations. No suspicious bony lesions. Note is made of a fabella. Soft tissues: No suprapatellar joint effusion. Probable soft tissue swelling of the anterior knee. IMPRESSION: No acute osseous abnormality. Reviewed by: Jasper Parmar MD on 02/01/2024 4:28 PM PDT Approved by: Jasper Parmar MD on 02/01/2024 4:28 PM PDT Station ID: [id number]
== END 2024-02-01 11:14 | disposition home or self-care (01) ==
LOC: DI 11:13
PROVIDERS: ATTEND Family Medicine
DX: M71.162 Other infective bursitis, left knee (principal)

== ENCOUNTER 2024-02-05 16:10 | Emergency (ER) | payer MEDICAID ==
[2024-02-05 16:30] VITALS: O2SAT 97
[2024-02-05 18:18] LABS: BASOPHILS # (AUTO) 0.1 10^3/uL (0.0-0.1); BASOPHILS % (AUTO) 0.5 %; EOSINOPHILS # (AUTO) 0.2 10^3/uL (0.0-0.7); HCT - HEMATOCRIT 41.9 % (42.0-52.0); LYMPHOCYTES # (AUTO) 3.6 10^3/uL (1.5-3.5); LYMPHOCYTES % (AUTO) 33.7 %; MEAN CORPUSCULAR HEMOGLOBIN 31.8 pg (27.0-31.0); MEAN CORPUSCULAR HGB CONC 33.4 g/dL (32.0-36.0); MEAN CORPUSCULAR VOLUME 95.2 fL (80.0-94.0); MEAN PLATELET VOLUME 8.1 fL (7.4-11.4); MONOCYTES # (AUTO) 0.4 10^3/uL (0.0-1.0); MONOCYTES % (AUTO) 3.6 %; NEUTROPHILS # (AUTO) 6.4 10^3/uL (1.5-6.6); NEUTROPHILS % (AUTO) 59.8 %; PLT - PLATELET COUNT 578 10^3/uL (130-450); RED CELL DISTRIBUTION WIDTH 12.5 % (12.0-15.0); WHITE BLOOD COUNT 10.6 x10^3/uL (4.8-10.8)
[2024-02-05 18:32] LABS: ALBUMIN 4.6 g/dL (3.2-5.5); ALBUMIN/GLOBULIN RATIO 2.2 (1.0-2.2); BILIRUBIN,TOTAL 0.3 mg/dL (0.2-1.0); CALCIUM 9.9 mg/dL (8.5-10.3); CREATININE 0.7 mg/dL (0.6-1.3); POTASSIUM 3.8 mmol/L (3.5-4.5); TOTAL PROTEIN 6.7 g/dL (6.4-8.9)
[2024-02-05] MEDS: MORPHINE 2 MG/ML CARPUJECT IVP STA (19:20)
[2024-02-05] MEDS: MORPHINE 2 MG/ML CARPUJECT IM STA (19:25)
--- NOTE | 2024-02-05 19:47 | ED Physician Documentation ---
History of Present Illness - Stated complaint Stated Complaint: LT KNEE PX/BACK PX - Chief complaint Chief Complaint: Ext Problem - Additonal information Additional information: This is a 43-year-old male who has a history of chronic pain on chronic oxycodone therapy who presents with concern for swelling in the left knee. He states he was seen a couple of times at the urgent care clinic over the last few weeks and has been on 2 rounds of antibiotics because his knee was "bright red" and extremely swollen and painful. He states it has not been tapped but he was put on antibiotics which she completed. He was put on Bactrim x 2 different times. That seems to have helped but he still has some swelling in the left knee. He has not had a fever. He denies any known injury to it but states that he has a lot of musculoskeletal injuries and degeneration from prior injuries. He walks with a cane due to some of his prior injuries. He states today he also developed exacerbation of his low back pain and right-sided sciatica after twisting funny due to his left knee pain. He did not fall. He has not had a fever, no chills, no nausea or vomiting, no chest pain or difficulty breathing, no urinary symptoms. He denies any history of abscesses or MRSA, no IV drug use, no hardware in his joints, no prior bacteremia to his knowledge. He is followed by his PCP for chronic pain in the manage she has oxycodone which has been stable for years. He has not seen Ortho for his knee. Review of Systems Constitutional: reports: Reviewed and negative Eyes: reports: Reviewed and negative Ears: reports: Reviewed and negative Nose: reports: Reviewed and negative Throat: reports: Reviewed and negative Cardiac: reports: Reviewed and negative Respiratory: reports: Reviewed and negative GI: reports: Reviewed and negative : reports: Reviewed and negative Skin: reports: Reviewed and negative Musculoskeletal: reports: Back pain, Extremity pain, Joint pain, Joint swelling PD PAST MEDICAL HISTORY - Past Medical History Past Medical History: Yes Cardiovascular: None Respiratory: None, Other Neuro: None Endocrine/Autoimmune: None GI: GERD, Other : None HEENT: None Psych: Post traumatic stress disorder Musculoskeletal: Chronic back pain Derm: None Other Past Medical History: sepsis -2020 - Past Surgical History Past Surgical History: Yes General: Cholecystectomy, Appendectomy, Other - Present Medications Home Medications: Ambulatory Orders Medication Instructions Recorded Confirmed Gabapentin 600 mg ORAL TID 06/21/18 09/03/23 Ibuprofen [Motrin] 600 mg ORAL TID 06/21/18 09/03/23 Prazosin [Minipress] 2 mg PO 1600 06/21/18 09/03/23 lamoTRIgine [LaMICtal] 200 mg ORAL DAILY 09/01/19 09/03/23 Acyclovir 400 mg PO Q8H 09/02/19 09/03/23 Cetirizine [ZyrTEC] 10 mg PO DAILY 09/02/19 09/03/23 Fluticasone [Flonase] 1 spray MUSHTAQ DAILY PRN 09/02/19 09/03/23 Prazosin HCl 4 mg PO QPM 09/02/19 09/03/23 HYDROcodone/ACET 7.5/325 [[place] 1 each PO TID #21 tab 07/31/20 09/03/23 7.5/325] Lidocaine Patch 5% [Lidoderm Patch] 1 patch TOP DAILY PRN #30 patch 07/31/20 09/03/23 methocarbamoL [Methocarbamol] 1,500 mg PO BID PRN #120 tab 07/31/20 09/03/23 - Allergies Allergies/Adverse Reactions: Allergies Allergy/AdvReac Type Severity Reaction Status Date / Time amoxicillin Allergy Anaphylaxis Verified 09/03/23 11:04 duloxetine [From Cymbalta] Allergy Hallucinati Verified 02/05/24 16:24 ons amitriptyline AdvReac Hallucinati Verified 09/03/23 11:04 ons diphenhydramine AdvReac Hallucinati Verified 09/03/23 11:04 [From Benadryl] ons haloperidol [From Haldol] AdvReac Hallucinati Verified 09/03/23 11:04 ons ketorolac AdvReac Nausea Verified 02/05/24 16:23 meloxicam AdvReac Emesis Verified 02/05/24 16:23 - Social History Does the pt smoke?: No Smoking Status: Never smoker Does the pt drink ETOH?: No Does the pt have substance abuse?: Yes - Immunizations Immunizations are current?: Yes - POLST Patient has POLST: No POLST Status: Full Code PD ED PE NORMAL - Vitals Vital signs reviewed: Yes - General General: Alert and oriented X 3, No acute distress, Well developed/nourished - HEENT HEENT: Atraumatic, Moist mucous membranes - Cardiac Cardiac: RRR, No murmur - Extremities Extremities: No deformity, Other (left knee w/ mild swelling, generalized pain, no obvious laxity, no erythema. No skin injuries. ) - Psych Psych: Normal mood, Normal affect - Free text exam Free text exam: generalized low back ttp and pain over the right sciatica. Results - Vitals Vitals: Vital Signs - 24 hr 02/05/24 02/05/24 16:18 20:01 Temperature 37.4 C Heart Rate 74 54 L Respiratory 20 16 Rate Blood Pressure 136/66 H 136/75 H O2 Saturation 97 97 Oxygen O2 Source Room air - Labs Labs: Laboratory Tests 02/05/24 02/05/24 02/05/24 18:05 18:05 18:05 WBC 10.6 RBC 4.40 L Hgb 14.0 Hct 41.9 L MCV 95.2 H MCH 31.8 H MCHC 33.4 RDW 12.5 Plt Count 578 H MPV 8.1 Neut # (Auto) 6.4 Lymph # (Auto) 3.6 H [place] # (Auto) 0.4 Eos # (Auto) 0.2 Baso # (Auto) 0.1 Absolute Nucleated RBC 0.00 Nucleated RBC % 0.0 ESR 1 Sodium 140 Potassium 3.8 Chloride 108 Carbon Dioxide 25 Anion Gap 7.0 BUN 14 Creatinine 0.7 Estimated GFR (MDRD) 122 Glucose 111 H Calcium 9.9 Total Bilirubin 0.3 AST 23 ALT 31 Alkaline Phosphatase 58 Total Protein 6.7 Albumin 4.6 Globulin 2.1 Albumin/Globulin Ratio 2.2 Lipase 48 - Rads (name of study) No standard instances Relevant Findings:: Other (reviewed recent left knee xray) PD Medical Decision Making - ED course Complexity details: reviewed old records, re-evaluated patient, considered differential, d/w patient ED course: 43-year-old male who presented with left knee pain and swelling as well as low back pain and right-sided sciatica. Patient does have chronic pain issues in his back and right sciatica and has been dealing with left knee pain for several weeks now. Differential for left knee pain included acute injury such as sprain, ligamentous tear, meniscal injury, septic arthritis, inflammatory arthritis, overuse injury, gout, bursitis among others. He described symptoms concerning for possible septic arthritis given prior erythema over the left knee with significant swelling and pain however has had improvement with the Bactrim and currently there is no erythema or symptoms to suggest a septic arthritis. He is able to flex and extend the knee, does have generalized tenderness but no erythema, nontoxic and afebrile here. I did do lab work however given his report of symptoms and his CBC is reassuring, CRP 1, and stable CMP. I did offer to tap the knee however patient declined stating he has quite a dislike of needles. I therefore treated pain with morphine and a dose of Dilaudid and he was feeling better. I think he can discharge home at this time but if he were to have recurrent erythema over the joint, I would like him to be seen immediately. The patient will continue his as needed oxycodone at home but recommended that he hold tonight's dose due to medication received in the ER and to avoid oversedation. Patient advised to follow-up with PCP or orthopedic office if the left knee pain and swelling does not improve. Departure - Departure Disposition: 01 Home, Self Care Clinical Impression: Swelling of knee joint, left Low back pain Qualifiers: Chronicity: acute Back pain laterality: right Sciatica presence: with sciatica Sciatica laterality: sciatica of right side Qualified Code(s): M54.41 - Lumbago with sciatica, right side Condition: Good Instructions: Swelling Knee Pain Reduce, ED Sciatica Comments: Please follow up with your primary doctor and ortho regarding your left knee if it remains painful/swollen. It does not appear infected todayAnd your labs are very stable. We gave you injections of morphine and then Dilaudid. You should not drive or operate machinery tonight and I recommend delaying your oral medication tonight as you may not need it. These are potentially dangerous and addictive medications that should be used carefully. These medications may constipate you. Take an [id number] stool softener (docusate) twice daily with plenty of water while taking these medications. If you go 24 hours without a bowel movement, take [id number] miralax, per package instructions. Do not drink or drive while taking these medications. If you received narcotic or sedating medications while in the emergency department, do not drive for 24 hours. Forms: PCP List Discharge Date/Time: 02/05/24 20:02
[2024-02-05] MEDS: HYDROmorphone 1 MG/ML CARPUJECT IM STA (19:55)
[2024-02-05 20:03] VITALS: BP 136/75
== END 2024-02-05 20:02 | disposition home or self-care (01) ==
LOC: ED 16:10
DX: M25.562 Pain in left knee (principal); M25.462 Effusion, left knee; M54.41 Lumbago with sciatica, right side; G89.29 Other chronic pain
CPT/HCPCS: 36415; 80053; 83690; 85025; 85651; 87040; 96372; 99283; 99284; J1170

== ENCOUNTER 2024-02-14 14:28 | Outpatient (CLI) | payer MEDICAID ==
--- NOTE | 2024-02-15 18:26 | XRAY Report ---
Knee 2V LT HISTORY: 43 years of age, INFECTIVE BURSITIS LEFT KNEE TECHNIQUE: Knee 2V LT COMPARISON: 02/01/2024. FINDINGS/IMPRESSION: 2 mm lucency at the medial aspect of the left distal femur diaphysis, unchanged from prior exam, nons pecific. Joint space of the medial and lateral compartment of left knee is well-maintained. No displa abril fracture on the frontal view. No focal periosteal thickening or erosion to suggest osteomyelitis. Frontal view of the right knee is unremarkable. Reviewed by: Rosalia Rodriguez MD on 02/15/2024 6:25 PM PDT Approved by: Rosalia Rodriguez MD on 02/15/2024 6:25 PM PDT Station ID: [id number]
== END 2024-02-14 14:29 | disposition home or self-care (01) ==
LOC: DI 14:28
PROVIDERS: ATTEND Orthopaedic Surgery
DX: M71.162 Other infective bursitis, left knee (principal)